=== PATIENT | female | born 1955 | race Caucasian/White ===

== ENCOUNTER 2022-04-07 10:34 | Inpatient (IN) ==
[2022-04-07] MEDS ORDERED: ASPIRIN 81 MG TAB.CHEW CHEWED ONE (10:57)
[2022-04-07 10:58] LABS: POC Calcium, Ionized 1.06 (1.16-1.32); POC Creatinine 0.6 (0.6-1.2); POC Potassium 4.4 (3.3-5.1)
--- NOTE | 2022-04-07 11:08 | Emergency Department Note ---
Chest Pain HPI General Chief Complaint: Chest Pain Stated Complaint: Chest Pain Time Seen by Provider: 04/07/22 10:57 Source: patient Mode of arrival: ambulatory Limitations: no limitations History of Present Illness HPI Narrative: Narrative:Who presents complaining of multiple episodes of palpitations at night she states along with these palpitations she gets a squeezing feeling that may radiate toward the left upper chest. She does not do anything to treat them they last for less than a minute she states she has been wearing a Holter monitor for her physician but she is not sure what it shows. She says no to chest pain but does say yes to a squeezing feeling. She is also has significant medical history and that she has fatty liver disease with ascites and cirrhosis and apparently her physician was trying to diurese her recently and her sodium dropped each called her and told her to limit her fluid intake. Related Data Home Medications Medication Instructions Recorded Confirmed propranolol 40 mg tablet 40 mg PO BID 02/07/17 03/28/22 ascorbic acid (vitamin C) 500 mg 500 mg PO QDAY 11/19/18 03/28/22 tablet ferrous sulfate 325 mg (65 mg 325 mg PO QDAY 11/19/18 03/28/22 iron) tablet vitamin B complex 1 tab PO QDAY 01/15/19 03/28/22 Previous Rx's Medication Instructions Recorded Accu-Chek Compact Test (blood #102 ea 05/24/15 sugar diagnostic, drum) magnesium oxide 400 mg (241.3 mg 400 mg PO BID #180 tabs 05/29/16 magnesium) tablet lancets 33 gauge (OneTouch Delica #100 ea 01/03/18 Lancets) blood [facility] diagnostic ([facility] 01/21/20 Verio test strips) calcipotriene 0.005 % topical cream 1 applic topical BID PRN psoriasis 01/24/21 #120 grams halobetasol propionate 0.05 % 1 applic topical BID PRN psoriasis 01/24/21 topical ointment #50 grams hydrocodone 5 mg-acetaminophen 325 1 tab PO BID PRN migraine headache 10/10/21 mg tablet #14 tabs apremilast 30 mg tablet 30 mg PO BID #180 tabs 11/03/21 pravastatin 20 mg tablet 20 mg PO QHS #90 tabs 12/29/21 albuterol sulfate 90 mcg/actuation 2 puff inhalation Q4H PRN asthma 01/30/22 aerosol inhaler #8.5 grams levothyroxine 50 mcg tablet 50 mcg PO QDAY #90 tabs 01/31/22 metformin 850 mg tablet 850 mg PO QDAY #90 tabs 02/06/22 midodrine 10 mg tablet 10 mg PO TID #90 tabs 03/14/22 furosemide 80 mg tablet 160 mg PO QDAY #90 tabs 03/28/22 spironolactone 100 mg tablet 400 mg PO QDAY #180 tabs 03/28/22 Allergies Allergy/AdvReac Type Severity Reaction Status Date / Time Sulfa (Sulfonamide Allergy Unknown SWELLING Verified 04/07/22 10:39 Antibiotics) [SULFA (SULFONAMIDE ANTIBIOTICS)] NSAIDS (Non-Steroidal AdvReac Unknown STOMACH Verified 04/07/22 10:39 Anti-Inflamma ULCERS [NSAIDS (NON-STEROIDAL ANTI-INFLAMMA] Review of Systems ROS ROS Narrative: Narrative: All systems ED: reviewed and negative except as stated. PFS Narrative Patient History Narrative: Narrative: Medical/Surgical/Family History All Active Problems Heart palpitations (Acute) Chest pain, rule out acute myocardial infarction (Acute) Ascites (Acute) Acute hypotension (Acute) Ascites (Acute) Lesion of lip (Acute) Diarrhea (Acute) Abdominal bloating (Acute) Anemia (Chronic) Asthma (Chronic) Cholelithiasis (Chronic 03/23/13) Cirrhosis of liver (Chronic 03/23/13) Dermatitis (Chronic) Diabetes mellitus, type II (Chronic) Edema (Chronic) Elevated liver enzymes (Chronic) Esophageal varices (Chronic 05/22/13) Gastritis (Chronic 05/22/13) Hyperkalemia (Chronic) Hyperlipidemia (Chronic) Hypertension, essential (Chronic) Hypothyroidism (Chronic) Leukocytopenia (Chronic) Fatty liver disease, nonalcoholic (Chronic) Abnormal liver function test (Chronic) Migraine (Chronic) Obesity, morbid (Chronic) Obstructive sleep apnea (Chronic) Osteoarthritis (Chronic) Overactive bladder (Chronic) Presbyopia (Chronic) Reactive airway disease (Chronic) Rosacea (Chronic) Rotator cuff impingement syndrome (Chronic) Elevated sedimentation rate (Chronic) Splenomegaly (Chronic 02/24/13) Thrombocytopenia (Chronic) Vitamin D deficiency (Chronic) Psoriasis with arthropathy (Chronic) Hyperuricemia (Chronic) Encounter for long-term current use of high risk medication (Chronic) Numbness and tingling sensation of skin (Chronic) Dysphagia (Chronic) Metabolic Syndrome X (Chronic) Low back pain (Chronic) Chest discomfort (Chronic) Skin lesion (Chronic) Migraine (Chronic) Depression (Chronic) Weight loss, intentional (Chronic) Callus of foot (Chronic) Dysuria (Acute) Retinal ischemia (Chronic) Retinal hemorrhage (Chronic) CKD (chronic kidney disease), stage II (Chronic) Medicare annual wellness visit, initial (Acute) Low blood pressure (Acute) Medicare annual wellness visit, subsequent (Acute) Neck pain (Acute) Lumbar radiculopathy, right (Acute) Right hip pain (Acute) Medical History Abnormal liver function test Anemia Mild Asthma No recent exacerbation or need for albuterol. Refill albuterol today. Advised patient to call clinic if she develops upper respiratory symptoms. Cholelithiasis (03/23/13) Asymptomatic Cirrhosis of liver (03/23/13) Dermatitis Diabetes mellitus, type II Dysphagia since last variceal banding Edema Mild Elevated liver enzymes Elevated sedimentation rate Encounter for long-term current use of high risk medication Esophageal varices (05/22/13) banded several times Fatty liver disease, nonalcoholic Fracture of finger, closed 1983: Right Small Finger, 1977 Right Small Finger, 1976 Right Thumb Gastritis (05/22/13) Gum abscess Hyperkalemia Hyperlipidemia Hypertension, essential Hypotension improved after decreased losartan dose Continue losartan as well as spironolactone, propranolol, and Lasix. Low-sodium diet recommended. Hyperuricemia H/O Hypothyroidism Leukocytopenia Secondary to cirrhosis. Medicare annual wellness visit, initial Medicare annual wellness visit, subsequent Metabolic Syndrome X Migraine Nuclear sclerosis Obesity, morbid Obstructive sleep apnea With the weight loss she feels she does not need CPAP Osteoarthritis Overactive bladder Pancytopenia (12/25/11) Pelvic inflammatory disease 1977 Presbyopia Psoriasis with arthropathy Rash similar to previous episodes of psoriasis. Reactive airway disease Right hip pain Rosacea Rotator cuff impingement syndrome Splenomegaly (02/24/13) Thrombocytopenia Secondary to cirrhosis. Vertigo BPPV Vitamin D deficiency Surgical History History of arthroscopy of left knee 2008 History of section 1989, 1985 History of colonoscopy (06/15/21) 08/29/10 - Dr Pineda - TA times two. 10/04/15 - normal-5 year follow up. History of endometrial ablation February 2003 menometrorrhagia History of esophagogastroduodenoscopy (06/15/21) 06/12/2014-Esophageal Varices 05/22/2013-No abnormalities. 05/31/15-Dr Delgado - Grade II esophageal varices. 01/08/17-July [place], Varices, banded 2. 01/07/18-esophageal varices banded x2. Dr. Saunders. 1 year follow-up EGD. 12/08/20 History of laparoscopy 1983 Diagnostic, infertility History of liver biopsy (03/03/13) Chronic hepatitis Family History Unknown Essential hypertension Social History Smoking Status: Never smoker Alcohol Intake Frequency: former alcohol drinker Substance Use: does not use Exam Narrative Narrative: Narrative: General Limitations: no limitations Course Vital Signs Vital signs: Vital Signs Temperature 97.6 F 04/07/22 10:35 Pulse Rate 63 04/07/22 10:35 Respiratory Rate 16 04/07/22 10:35 Blood Pressure 139/60 04/07/22 10:35 Pulse Oximetry (%) 98 04/07/22 10:35 Oxygen Delivery Method 04/07/22 10:35 Temperature 97.6 F 04/07/22 10:35 Pulse Rate 58 L 04/07/22 11:31 Respiratory Rate 12 04/07/22 11:31 Blood Pressure 132/74 04/07/22 11:31 Pulse Oximetry (%) 99 04/07/22 11:31 Oxygen Delivery Method 04/07/22 10:35 MDM MDM Narrative Medical decision making narrative: Narrative: Lab Data Result diagrams: 04/07/22 11:00 Labs: Lab Results 04/07/22 04/07/22 04/07/22 Range/Units 10:52 10:53 11:00 WBC 9.0 (4.5-11.0) K/mcL RBC 4.30 (3.59-5.38) M/mcL Hgb 13.1 (11.2-15.7) g/dL Hct 36.8 (34.1-44.9) % POC Hct 40.0 (36-48) MCV 85.6 (80.0-100.0) fL MCH 30.5 (26.0-34.0) pg MCHC 35.6 (31.0-36.0) g/dL RDW 14.3 (11.5-14.5) % Plt Count 177 (140-440) K/mcL MPV 11.0 (8.8-12.5) fL Immature Gran % (Auto) 0.4 (0.0-0.5) % Neut % (Auto) 88.9 H (38.0-78.0) % Lymph % (Auto) 4.4 L (15.5-49.0) % [place] % (Auto) 5.7 (1.0-12.0) % Eos % (Auto) 0.4 (0.0-7.0) % Baso % (Auto) 0.2 (0.0-2.0) % Lymph # (Auto) 0.40 L (1.50-4.80) K/mcL [place] # (Auto) 0.51 (0.10-0.90) K/mcL Eos # (Auto) 0.04 (0.00-0.70) K/mcL Baso # (Auto) 0.02 (0.00-0.30) K/mcL Immature Gran # 0.04 (0.00-0.05) K/mcl Absolute Neutrophils 7.98 (1.80-8.00) K/mcL D-Dimer POC Sodium 121 L (133-145) POC Potassium 4.4 (3.3-5.1) POC Chloride 84 L (96-108) POC Total CO2 29.0 (22-30) POC BUN 28 H (6-20) POC Creatinine 0.6 (0.6-1.2) POC Glucose 240 H (70-105) POC WB Ioniz Calcium 1.06 L (1.16-1.32) POC Troponin I < 0.02 (0.00-0.08) 04/07/22 Range/Units 11:00 WBC (4.5-11.0) K/mcL RBC (3.59-5.38) M/mcL Hgb (11.2-15.7) g/dL Hct (34.1-44.9) % POC Hct (36-48) MCV (80.0-100.0) fL MCH (26.0-34.0) pg MCHC (31.0-36.0) g/dL RDW (11.5-14.5) % Plt Count (140-440) K/mcL MPV (8.8-12.5) fL Immature Gran % (Auto) (0.0-0.5) % Neut % (Auto) (38.0-78.0) % Lymph % (Auto) (15.5-49.0) % [place] % (Auto) (1.0-12.0) % Eos % (Auto) (0.0-7.0) % Baso % (Auto) (0.0-2.0) % Lymph # (Auto) (1.50-4.80) K/mcL [place] # (Auto) (0.10-0.90) K/mcL Eos # (Auto) (0.00-0.70) K/mcL Baso # (Auto) (0.00-0.30) K/mcL Immature Gran # (0.00-0.05) K/mcl Absolute Neutrophils (1.80-8.00) K/mcL D-Dimer TNP POC Sodium (133-145) POC Potassium (3.3-5.1) POC Chloride (96-108) POC Total CO2 (22-30) POC BUN (6-20) POC Creatinine (0.6-1.2) POC Glucose (70-105) POC WB Ioniz Calcium (1.16-1.32) POC Troponin I (0.00-0.08) Discharge Plan Patient/Caregiver Discharge Instructions Follow up with: Frandy Self DO [Primary Care Provider] - Prescriptions: No Action (DME) blood sugar diagnostic, drum [Accu-Chek Compact Test] strip See Dose Instructions .ROUTE .MEDSUPPLY Qty: 102 3RF Dose Instruction: As directed Rx Instructions: Check blood sugars once daily, Dx: E11.9 magnesium oxide 400 mg tablet 400 mg PO BID Qty: 180 3RF propranolol 40 mg tablet 40 mg PO BID (DME) lancets [OneTouch Delica Lancets] 33 gauge misc See Dose Instructions .ROUTE .MEDSUPPLY Qty: 100 3RF Dose Instruction: As directed Rx Instructions: Test once daily apremilast 30 mg tablet 30 mg PO BID Qty: 180 4RF pravastatin 20 mg tablet 20 mg PO QHS Qty: 90 3RF levothyroxine 50 mcg tablet 50 mcg PO QDAY Qty: 90 3RF metformin 850 mg tablet 850 mg PO QDAY Qty: 90 3RF vitamin B complex tablet 1 tab PO QDAY ferrous sulfate 325 mg (65 mg iron) tablet 325 mg PO QDAY ascorbic acid (vitamin C) 500 mg tablet 500 mg PO QDAY (DME) OneTouch Verio test strips Strip See Dose Instructions .ROUTE .MEDSUPPLY Qty: 100 3RF Dose Instruction: As directed Rx Instructions: Test once daily calcipotriene 0.005 % cream 1 applic topical BID PRN (Reason: psoriasis) Qty: 120 1RF Rx Instructions: rub in gently and completely halobetasol propionate 0.05 % ointment 1 applic topical BID PRN (Reason: psoriasis) Qty: 50 1RF albuterol sulfate 90 mcg/actuation HFA aerosol inhaler 2 puff INHALATION Q4H PRN (Reason: asthma) Qty: 8.5 1RF hydrocodone-acetaminophen 5-325 mg tablet 1 tab PO BID PRN (Reason: migraine headache) Qty: 14 0RF midodrine 10 mg tablet 10 mg PO TID Qty: 90 2RF Rx Instructions: do not give last dose of day after 6PM or within 4 hrs of bedtime spironolactone 100 mg tablet 400 mg PO QDAY Qty: 180 1RF furosemide 80 mg tablet 160 mg PO QDAY Qty: 90 1RF
--- NOTE | 2022-04-07 11:23 | XRay Report ---
INDICATION: Chest Pain TECHNIQUE: AP portable upright chest x-ray COMPARISON: None FINDINGS: Lungs:Lungs are negative. No focal pulmonary parenchymal infiltrate or mass Heart, vascular:No significant cardiomegaly. Pulmonary vascularity is normal. No pulmonary edema or pulmonary congestion Mediastinum, m[place]lin:No mediastinal widening. No hilar mass Pleura:No pleural fluid. No pleural-based mass or calcification Skeletal:Negative. IMPRESSION: Negative AP chest x-ray Interpreted and Authenticated by: Frandy Alves 04/07/22
[2022-04-07 11:43] LABS: Basophils # (Auto) 0.02 K/mcL (0.00-0.30); Basophils % (Auto) 0.2 % (0.0-2.0); Eosinophils # (Auto) 0.04 K/mcL (0.00-0.70); Eosinophils % (Auto) 0.4 % (0.0-7.0); Hematocrit 36.8 % (34.1-44.9); Hemoglobin 13.1 g/dL (11.2-15.7); Lymphocytes % (Auto) 4.4 % (15.5-49.0); Mean Cell Volume 85.6 fL (80.0-100.0); Mean Corpuscular HGB Conc 35.6 g/dL (31.0-36.0); Monocytes # (Auto) 0.51 K/mcL (0.10-0.90); Monocytes % (Auto) 5.7 % (1.0-12.0); Neutrophils % (Auto) 88.9 % (38.0-78.0); Platelet Count 177 K/mcL (140-440); Red Cell Distribution Width 14.3 % (11.5-14.5)
[2022-04-07 12:22] LABS: ALT/SGPT 23 U/L (<40); AST/SGOT 46 U/L (<32); Albumin 3.4 gm/dL (3.2-5.2); Alkaline Phosphatase 63 U/L (39-117); Bilirubin,Direct 0.3 mg/dL (<0.3); Bilirubin,Total 1.6 mg/dL (0.1-1.0); Globulin 3.4 gm/dL (2.2-3.7)
--- NOTE | 2022-04-07 13:01 | Emergency Department Note ---
HPI General Chief complaint: Chest Pain Stated complaint: Chest Pain Time Seen by Provider: 04/07/22 10:57 Source: patient Mode of arrival: ambulatory Limitations: no limitations History of Present Illness HPI Narrative: Maryam Cruz is a 66-year-old female who presents to the emergency department complaining of a variety of issues, including fluttering in her chest for the past 2 weeks as well as accompanying warmth and pressure for 2 days, along with anxiety and an inability to sleep. The patient was seen here in January and a large volume paracentesis was performed, followed by admission due to resulting lability of her blood pressure. Following discharge, the patient was seen by her primary care provider and a Holter monitor was ordered; she states it was believed that holding her propranolol resulted in a dysrhythmia. She reports that while she was hospitalized she had intermittent atrial fibrillation, but says she did not require cardioversion. Patient has history of liver cirrhosis that was compensated for approximately 10 years, and this was the case until about 2 months ago. The patient has been undergoing paracentesis every couple of weeks with volumes up to 5 L. Diuretics have been under adjustment, increasing to 160 mg/day of Lasix and 400 mg/day of spironolactone; the patient was informed 3 days ago that her sodium was low. She states she has been placed on fluid restriction of 1500 mils per day as well as her diuretics being cut in half to Lasix 80 mg/day and spironolactone 200 mg/day. In addition to the above symptoms, the patient reports she has had vomiting this morning along with her inability to sleep, and rigors. She denies chest pain, shortness of breath, diz ziness, muscle spasms in the extremities, and all other acute complaints at this time. Related Data Home Medications Medication Instructions Recorded Confirmed propranolol 40 mg tablet 40 mg PO BID 02/07/17 04/07/22 ascorbic acid (vitamin C) 500 mg 500 mg PO QDAY 11/19/18 04/07/22 tablet ferrous sulfate 325 mg (65 mg 325 mg PO QDAY 11/19/18 04/07/22 iron) tablet vitamin B complex 1 tab PO QDAY 01/15/19 04/07/22 Previous Rx's Medication Instructions Recorded Accu-Chek Compact Test (blood #102 ea 05/24/15 sugar diagnostic, drum) magnesium oxide 400 mg (241.3 mg 400 mg PO BID #180 tabs 05/29/16 magnesium) tablet lancets 33 gauge (OneTouch Delica #100 ea 01/03/18 Lancets) blood sugar diagnostic (OneTouch #100 ea 01/21/20 Verio test strips) calcipotriene 0.005 % topical cream 1 applic topical BID PRN psoriasis 01/24/21 #120 grams halobetasol propionate 0.05 % 1 applic topical BID PRN psoriasis 01/24/21 topical ointment #50 grams hydrocodone 5 mg-acetaminophen 325 1 tab PO BID PRN migraine headache 10/10/21 mg tablet #14 tabs apremilast 30 mg tablet 30 mg PO BID #180 tabs 11/03/21 pravastatin 20 mg tablet 20 mg PO QHS #90 tabs 12/29/21 albuterol sulfate 90 mcg/actuation 2 puff inhalation Q4H PRN asthma 01/30/22 aerosol inhaler #8.5 grams levothyroxine 50 mcg tablet 50 mcg PO QDAY #90 tabs 01/31/22 metformin 850 mg tablet 850 mg PO QDAY #90 tabs 02/06/22 midodrine 10 mg tablet 10 mg PO TID #90 tabs 03/14/22 furosemide 80 mg tablet 160 mg PO QDAY #90 tabs 03/28/22 spironolactone 100 mg tablet 400 mg PO QDAY #180 tabs 03/28/22 Allergies Allergy/AdvReac Type Severity Reaction Status Date / Time Sulfa (Sulfonamide Allergy Unknown SWELLING Verified 04/07/22 10:39 Antibiotics) [SULFA (SULFONAMIDE ANTIBIOTICS)] NSAIDS (Non-Steroidal AdvReac Unknown STOMACH Verified 04/07/22 10:39 Anti-Inflamma ULCERS [NSAIDS (NON-STEROIDAL ANTI-INFLAMMA] Review of Systems ROS ROS Narrative: A comprehensive review of systems is obtained and found to be negative, except as per HPI. [facility] Narrative Patient History Narrative: Narrative: Medical/Surgical/Family History All Active Problems (Updated 04/07/22 @ 19:53 by Tessie Talley PA-C) Acute hyponatremia (Acute) Hyponatremia (Acute) Cirrhosis of liver with ascites (Acute) Heart palpitations (Acute) Chest pain, rule out acute myocardial infarction (Acute) Ascites (Acute) Acute hypotension (Acute) Ascites (Acute) Lesion of lip (Acute) Diarrhea (Acute) Abdominal bloating (Acute) Anemia (Chronic) Asthma (Chronic) Cholelithiasis (Chronic 03/23/13) Cirrhosis of liver (Chronic 03/23/13) Dermatitis (Chronic) Diabetes mellitus, type II (Chronic) Edema (Chronic) Elevated liver enzymes (Chronic) Esophageal varices (Chronic 05/22/13) Gastritis (Chronic 05/22/13) Hyperkalemia (Chronic) Hyperlipidemia (Chronic) Hypertension, essential (Chronic) Hypothyroidism (Chronic) Leukocytopenia (Chronic) Fatty liver disease, nonalcoholic (Chronic) Abnormal liver function test (Chronic) Migraine (Chronic) Obesity, morbid (Chronic) Obstructive sleep apnea (Chronic) Osteoarthritis (Chronic) Overactive bladder (Chronic) Presbyopia (Chronic) Reactive airway disease (Chronic) Rosacea (Chronic) Rotator cuff impingement syndrome (Chronic) Elevated sedimentation rate (Chronic) Splenomegaly (Chronic 02/24/13) Thrombocytopenia (Chronic) Vitamin D deficiency (Chronic) Psoriasis with arthropathy (Chronic) Hyperuricemia (Chronic) Encounter for long-term current use of high risk medication (Chronic) Numbness and tingling sensation of skin (Chronic) Dysphagia (Chronic) Metabolic Syndrome X (Chronic) Low back pain (Chronic) Chest discomfort (Chronic) Skin lesion (Chronic) Migraine (Chronic) Depression (Chronic) Weight loss, intentional (Chronic) Callus of foot (Chronic) Dysuria (Acute) Retinal ischemia (Chronic) Retinal hemorrhage (Chronic) CKD (chronic kidney disease), stage II (Chronic) Medicare annual wellness visit, initial (Acute) Low blood pressure (Acute) Medicare annual wellness visit, subsequent (Acute) Neck pain (Acute) Lumbar radiculopathy, right (Acute) Right hip pain (Acute) Medical History Abnormal liver function test Anemia Mild Asthma No recent exacerbation or need for albuterol. Refill albuterol today. Advised patient to call clinic if she develops upper respiratory symptoms. Cholelithiasis (03/23/13) Asymptomatic Cirrhosis of liver (03/23/13) Dermatitis Diabetes mellitus, type II Dysphagia since last variceal banding Edema Mild Elevated liver enzymes Elevated sedimentation rate Encounter for long-term current use of high risk medication Esophageal varices (05/22/13) banded several times Fatty liver disease, nonalcoholic Fracture of finger, closed 1984: Right Small Finger, 1977 Right Small Finger, 1976 Right Thumb Gastritis (05/22/13) Gum abscess Hyperkalemia Hyperlipidemia Hypertension, essential Hypotension improved after decreased losartan dose Continue losartan as well as spironolactone, propranolol, and Lasix. Low-sodium diet recommended. Hyperuricemia H/O Hypothyroidism Leukocytopenia Secondary to cirrhosis. Medicare annual wellness visit, initial Medicare annual wellness visit, subsequent Metabolic Syndrome X Migraine Nuclear sclerosis Obesity, morbid Obstructive sleep apnea With the weight loss she feels she does not need CPAP Osteoarthritis Overactive bladder Pancytopenia (12/25/11) Pelvic inflammatory disease 1977 Presbyopia Psoriasis with arthropathy Rash similar to previous episodes of psoriasis. Reactive airway disease Right hip pain Rosacea Rotator cuff impingement syndrome Splenomegaly (02/24/13) Thrombocytopenia Secondary to cirrhosis. Vertigo BPPV Vitamin D deficiency Surgical History History of arthroscopy of left knee 2008 History of section 1985 History of colonoscopy (06/15/21) 08/29/10 - Dr Pineda - TA times two. 10/04/15 - normal-5 year follow up. History of endometrial ablation February 2003 menometrorrhagia History of esophagogastroduodenoscopy (06/15/21) 06/12/2014-Esophageal Varices 05/22/2013-No abnormalities. 05/31/15-Dr Delgado - Grade II esophageal varices. 01/08/17-July [place], Varices, banded 2. 01/07/18-esophageal varices banded x2. Dr. Saunders. 1 year follow-up EGD. 12/08/20 History of laparoscopy 1983 Diagnostic, infertility History of liver biopsy (03/03/13) Chronic hepatitis Family History Unknown Essential hypertension Social History Smoking Status: Never smoker Alcohol Intake Frequency: former alcohol drinker Substance Use: does not use Exam Narrative Narrative: General: Alert, pleasant, conversant, NAD HEENT: Mask in place per COVID protocol, EOMI, PERRL, normal ROM at neck, anicteric sclerae Chest/respirations: Symmetric chest wall expansion, CTAB, adequate tidal volume and respiratory effort, speaks in complete paragraphs without difficulty CV: RRR/no MRG, cap refill less than 2 seconds Abdomen/GI: NABs, soft, NT/ND; no right upper quadrant tenderness Extremities/MSK: MAEW, normal gait Skin: Normal warm and dry; no cyanosis or jaundice General Limitations: no limitations Course Vital Signs Vital signs: Vital Signs Temperature 97.6 F 04/07/22 10:35 Pulse Rate 63 04/07/22 10:35 Respiratory Rate 16 04/07/22 10:35 Blood Pressure 139/60 04/07/22 10:35 Pulse Oximetry (%) 98 04/07/22 10:35 Oxygen Delivery Method 04/07/22 10:35 Temperature 98.2 F 04/07/22 19:11 Pulse Rate 64 04/07/22 19:11 Respiratory Rate 16 04/07/22 19:11 Blood Pressure 94/74 04/07/22 19:11 Pulse Oximetry (%) 98 04/07/22 19:11 Oxygen Delivery Method 04/07/22 19:11 [facility] Narrative Medical decision making narrative: Patient was informed 3 days prior to ED presentation that her sodium was low. Evaluated in the emergency department it is 121 today. This is not consistent with a level that the patient may be discharged home safely. In addition, the patient's proBNP is elevated, though chest x-ray is not consistent with fluid overload. The patient is in sinus rhythm in the emergency department, though occasional PACs are noted. No ST elevation or depression. Troponin is negative. The patient's abdomen is not distended as it has been on previous encounters requiring paracentesis. The patient last had a paracentesis 1 week ago and is scheduled for her next in a week. The patient's work-up is discussed with her in detail. Given her benign abdomen and lack of signs and symptoms consistent with ascites and fluid overload, we discussed risks and benefits of paracentesis today. Using a shared decision- making process, she agrees that admission is in her best interest and consents to contacting the hospitalist to discuss admission to the hospital, along with foregoing paracentesis until her scheduled appointment next week. The hospitalist service is contacted (Dr Cutler) to request admission for this patient given her hyponatremia. After discussing the patient's case in detail, Dr. Cutler agrees to place the patient in PCU. Differential Diagnosis Differential Diagnosis: electrolyte derangement, dysrhythmia, fluid overload, ascites Lab Data Lab results reviewed: Yes I reviewed the patient's lab results. Result diagrams: 04/07/22 11:00 04/07/22 16:05 Labs: Lab Results 04/07/22 04/07/22 04/07/22 Range/Units 10:52 10:53 11:00 WBC 9.0 (4.5-11.0) K/mcL RBC 4.30 (3.59-5.38) M/mcL Hgb 13.1 (11.2-15.7) g/dL Hct 36.8 (34.1-44.9) % POC Hct 40.0 (36-48) MCV 85.6 (80.0-100.0) fL MCH 30.5 (26.0-34.0) pg MCHC 35.6 (31.0-36.0) g/dL RDW 14.3 (11.5-14.5) % Plt Count 177 (140-440) K/mcL MPV 11.0 (8.8-12.5) fL Immature Gran % (Auto) 0.4 (0.0-0.5) % Neut % (Auto) 88.9 H (38.0-78.0) % Lymph % (Auto) 4.4 L (15.5-49.0) % [place] % (Auto) 5.7 (1.0-12.0) % Eos % (Auto) 0.4 (0.0-7.0) % Baso % (Auto) 0.2 (0.0-2.0) % Lymph # (Auto) 0.40 L (1.50-4.80) K/mcL [place] # (Auto) 0.51 (0.10-0.90) K/mcL Eos # (Auto) 0.04 (0.00-0.70) K/mcL Baso # (Auto) 0.02 (0.00-0.30) K/mcL Immature Gran # 0.04 (0.00-0.05) K/mcl Absolute Neutrophils 7.98 (1.80-8.00) K/mcL D-Dimer POC Sodium 121 L (133-145) POC Potassium 4.4 (3.3-5.1) POC Chloride 84 L (96-108) POC Total CO2 29.0 (22-30) POC BUN 28 H (6-20) POC Creatinine 0.6 (0.6-1.2) POC Glucose 240 H (70-105) POC WB Ioniz Calcium 1.06 L (1.16-1.32) Total Bilirubin (0.1-1.0) mg/dL Direct Bilirubin (<0.3) mg/dL AST (<32) U/L ALT (<40) U/L Alkaline Phosphatase (39-117) U/L NT-Pro-B Natriuret Pep (<125.0) pg/mL Total Protein (5.9-8.4) gm/dL Albumin (3.2-5.2) gm/dL Globulin (2.2-3.7) gm/dL POC Troponin I < 0.02 (0.00-0.08) 04/07/22 04/07/22 04/07/22 Range/Units 11:00 11:00 12:27 WBC (4.5-11.0) K/mcL RBC (3.59-5.38) M/mcL Hgb (11.2-15.7) g/dL Hct (34.1-44.9) % POC Hct (36-48) MCV (80.0-100.0) fL MCH (26.0-34.0) pg MCHC (31.0-36.0) g/dL RDW (11.5-14.5) % Plt Count (140-440) K/mcL MPV (8.8-12.5) fL Immature Gran % (Auto) (0.0-0.5) % Neut % (Auto) (38.0-78.0) % Lymph % (Auto) (15.5-49.0) % [place] % (Auto) (1.0-12.0) % Eos % (Auto) (0.0-7.0) % Baso % (Auto) (0.0-2.0) % Lymph # (Auto) (1.50-4.80) K/mcL [place] # (Auto) (0.10-0.90) K/mcL Eos # (Auto) (0.00-0.70) K/mcL Baso # (Auto) (0.00-0.30) K/mcL Immature Gran # (0.00-0.05) K/mcl Absolute Neutrophils (1.80-8.00) K/mcL D-Dimer TNP 1.54 H POC Sodium (133-145) POC Potassium (3.3-5.1) POC Chloride (96-108) POC Total CO2 (22-30) POC BUN (6-20) POC Creatinine (0.6-1.2) POC Glucose (70-105) POC WB Ioniz Calcium (1.16-1.32) Total Bilirubin 1.6 H (0.1-1.0) mg/dL Direct Bilirubin 0.3 H (<0.3) mg/dL AST 46 H (<32) U/L ALT 23 (<40) U/L Alkaline Phosphatase 63 (39-117) U/L NT-Pro-B Natriuret Pep 1240.0 H (<125.0) pg/mL Total Protein 6.8 (5.9-8.4) gm/dL Albumin 3.4 (3.2-5.2) gm/dL Globulin 3.4 (2.2-3.7) gm/dL POC Troponin I (0.00-0.08) EKG Data EKG #1: EKG attestation: Yes I reviewed and interpreted this EKG. EKG shows normal: sinus rhythm ST segment elevation in: None ST segment depression in: None Pulse Oximetry Data Pulse Ox %: 98 Interpretation: On room air Discharge Plan Patient/Caregiver Discharge Instructions Pt seen by MACHINE HEEL BUILDER/PA only: Yes Clinical Impression: Acute hyponatremia, Abnormal liver function test Patient Disposition: Still a Patient Discharge Date/Time: 04/07/22 14:57
--- NOTE | 2022-04-07 14:39 | Internal Med History&Physical ---
HPI History of Present Illness Patient information: Note initiated : 04/07/22 at 2:29 pm Service Date, if different from initiated Date: [] Patient: Maryam Cruz a 66 y/o F admitted on for Chest Pain. Chief Complaint: [palpitation, chest pressure] Chief complaint: palpitation, chest pressure History of present illness: Ms. Cruz is a 66 year old F history of cirrhosis with ascites, type 2 diabetes mellitus, dyslipidemia, hypothyroidism, psoriasis, presenting with 2-day history of palpitations, chest pressure, and warm of the chest wall. In addition, she was told 2 days ago that her serum potassium level was low at 123, with a baseline of 132. As result, she was told to cut her diuretics Lasix into half from the 1 60-80 Mg daily. A repeat serum sodium level was 121 today in the ED. Cardiac rhythm was on and off in atrial fibrillation's from telemetry blood and twelve-lead EKG done in the ED showing normal sinus rhythm. First troponin not elevated at <0.02. Patient currently denies any palpitation or chest pressure. She is only complaining of mild general body weakness. Admission request was called for symptomatic hyponatremia. Constitutional Constitutional: Absent chills, excessive sweating, fatigue, fever(s) or weakness EENT Eyes: Absent blurry vision, change in vision, loss of vision or other visual disturbances Ears: Absent decreased hearing or tinnitus Nose, mouth and throat: Absent abnormal hearing, dry mouth, headache(s), nasal congestion or sore throat Cardiovascular Cardiovascular: Absent chest pain, chest pain at rest, edema, irregular heart rhythm or palpatations Additional comments: palpitation Chest wall pressure Warmth of chest wall Respiratory Respiratory: Absent cough, dyspnea or wheezing Gastrointestinal Gastrointestinal: Absent abdominal pain, constipation, diarrhea, nausea or vomiting Musculoskeletal Musculoskeletal: Absent back pain, deformity, limited range of motion, muscle cramps, muscle weakness or numbness Integumentary Integumentary: Absent lesions, rash or wounds Neurological Neurological: Absent focal weakness, headache(s) or numbness Psychiatric Psychiatric: Absent anxiety, depression or hallucinations PFSH PFSH All Active Problems (Updated 04/07/22 @ 14:34 by Leon Cutler MD) Hyponatremia (Acute) Cirrhosis of liver with ascites (Acute) Heart palpitations (Acute) Chest pain, rule out acute myocardial infarction (Acute) Ascites (Acute) Acute hypotension (Acute) Ascites (Acute) Lesion of lip (Acute) Diarrhea (Acute) Abdominal bloating (Acute) Anemia (Chronic) Asthma (Chronic) Cholelithiasis (Chronic 03/23/13) Cirrhosis of liver (Chronic 03/23/13) Dermatitis (Chronic) Diabetes mellitus, type II (Chronic) Edema (Chronic) Elevated liver enzymes (Chronic) Esophageal varices (Chronic 05/22/13) Gastritis (Chronic 05/22/13) Hyperkalemia (Chronic) Hyperlipidemia (Chronic) Hypertension, essential (Chronic) Hypothyroidism (Chronic) Leukocytopenia (Chronic) Fatty liver disease, nonalcoholic (Chronic) Abnormal liver function test (Chronic) Migraine (Chronic) Obesity, morbid (Chronic) Obstructive sleep apnea (Chronic) Osteoarthritis (Chronic) Overactive bladder (Chronic) Presbyopia (Chronic) Reactive airway disease (Chronic) Rosacea (Chronic) Rotator cuff impingement syndrome (Chronic) Elevated sedimentation rate (Chronic) Splenomegaly (Chronic 02/24/13) Thrombocytopenia (Chronic) Vitamin D deficiency (Chronic) Psoriasis with arthropathy (Chronic) Hyperuricemia (Chronic) Encounter for long-term current use of high risk medication (Chronic) Numbness and tingling sensation of skin (Chronic) Dysphagia (Chronic) Metabolic Syndrome X (Chronic) Low back pain (Chronic) Chest discomfort (Chronic) Skin lesion (Chronic) Migraine (Chronic) Depression (Chronic) Weight loss, intentional (Chronic) Callus of foot (Chronic) Dysuria (Acute) Retinal ischemia (Chronic) Retinal hemorrhage (Chronic) CKD (chronic kidney disease), stage II (Chronic) Medicare annual wellness visit, initial (Acute) Low blood pressure (Acute) Medicare annual wellness visit, subsequent (Acute) Neck pain (Acute) Lumbar radiculopathy, right (Acute) Right hip pain (Acute) Medical History Abnormal liver function test Anemia Mild Asthma No recent exacerbation or need for albuterol. Refill albuterol today. Advised patient to call clinic if she develops upper respiratory symptoms. Cholelithiasis (03/23/13) Asymptomatic Cirrhosis of liver (03/23/13) Dermatitis Diabetes mellitus, type II Dysphagia since last variceal banding Edema Mild Elevated liver enzymes Elevated sedimentation rate Encounter for long-term current use of high risk medication Esophageal varices (05/22/13) banded several times Fatty liver disease, nonalcoholic Fracture of finger, closed 1984: Right Small Finger, 1977 Right Small Finger, 1976 Right Thumb Gastritis (05/22/13) Gum abscess Hyperkalemia Hyperlipidemia Hypertension, essential Hypotension improved after decreased losartan dose Continue losartan as well as spironolactone, propranolol, and Lasix. Low-sodium diet recommended. Hyperuricemia H/O Hypothyroidism Leukocytopenia Secondary to cirrhosis. Medicare annual wellness visit, initial Medicare annual wellness visit, subsequent Metabolic Syndrome X Migraine Nuclear sclerosis Obesity, morbid Obstructive sleep apnea With the weight loss she feels she does not need CPAP Osteoarthritis Overactive bladder Pancytopenia (12/25/11) Pelvic inflammatory disease 1977 Presbyopia Psoriasis with arthropathy Rash similar to previous episodes of psoriasis. Reactive airway disease Right hip pain Rosacea Rotator cuff impingement syndrome Splenomegaly (02/24/13) Thrombocytopenia Secondary to cirrhosis. Vertigo BPPV Vitamin D deficiency Surgical History History of arthroscopy of left knee 2008 History of section 1985 History of colonoscopy (06/15/21) 08/29/10 - Dr Pineda - TA times two. 10/04/15 - normal-5 year follow up. History of endometrial ablation February 2003 menometrorrhagia History of esophagogastroduodenoscopy (06/15/21) 06/12/2014-Esophageal Varices 05/22/2013-No abnormalities. 05/31/15-Dr Delgado - Grade II esophageal varices. 01/08/17-July [place]o, Varices, banded 2. 01/07/18-esophageal varices banded x2. Dr. Saunders. 1 year follow-up EGD. 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 smoking status: Never smoker alcohol intake frequency: former alcohol drinker substance use type: does not use MEDS/ALLERGIES Home Medications and Allergies Home Medications Medication Instructions Recorded Confirmed Type Accu-Chek Compact Test (blood #102 ea 05/24/15 03/28/22 Rx sugar diagnostic, drum) magnesium oxide 400 mg (241.3 mg 400 mg PO BID #180 tabs 05/29/16 03/28/22 Rx magnesium) tablet propranolol 40 mg tablet 40 mg PO BID 02/07/17 03/28/22 History lancets 33 gauge (OneTouch Delica #100 ea 01/03/18 03/28/22 Rx Lancets) ascorbic acid (vitamin C) 500 mg 500 mg PO QDAY 11/19/18 03/28/22 History tablet ferrous sulfate 325 mg (65 mg 325 mg PO QDAY 11/19/18 03/28/22 History iron) tablet vitamin B complex 1 tab PO QDAY 01/15/19 03/28/22 History blood sugar diagnostic (OneTouch #100 ea 01/21/20 03/28/22 Rx Verio test strips) calcipotriene 0.005 % topical cream 1 applic topical BID PRN psoriasis 01/24/21 03/28/22 Rx #120 grams halobetasol propionate 0.05 % 1 applic topical BID PRN psoriasis 01/24/21 03/28/22 Rx topical ointment #50 grams hydrocodone 5 mg-acetaminophen 325 1 tab PO BID PRN migraine headache 10/10/21 03/28/22 Rx mg tablet #14 tabs apremilast 30 mg tablet 30 mg PO BID #180 tabs 11/03/21 03/28/22 Rx pravastatin 20 mg tablet 20 mg PO QHS #90 tabs 12/29/21 03/28/22 Rx albuterol sulfate 90 mcg/actuation 2 puff inhalation Q4H PRN asthma 01/30/22 03/28/22 Rx aerosol inhaler #8.5 grams levothyroxine 50 mcg tablet 50 mcg PO QDAY #90 tabs 01/31/22 03/28/22 Rx metformin 850 mg tablet 850 mg PO QDAY #90 tabs 02/06/22 03/28/22 Rx midodrine 10 mg tablet 10 mg PO TID #90 tabs 03/14/22 03/28/22 Rx furosemide 80 mg tablet 160 mg PO QDAY #90 tabs 03/28/22 03/28/22 Rx spironolactone 100 mg tablet 400 mg PO QDAY #180 tabs 03/28/22 03/28/22 Rx Allergies Allergy/AdvReac Type Severity Reaction Status Date / Time Sulfa (Sulfonamide Allergy Unknown SWELLING Verified 04/07/22 10:39 Antibiotics) [SULFA (SULFONAMIDE ANTIBIOTICS)] NSAIDS (Non-Steroidal AdvReac Unknown STOMACH Verified 04/07/22 10:39 Anti-Inflamma ULCERS [NSAIDS (NON-STEROIDAL ANTI-INFLAMMA] EXAM Constitutional Vitals: Temp Pulse Resp BP Pulse Ox O2 Del Method 36.4 C 62 18 119/84 99 04/07/22 10:35 04/07/22 14:15 04/07/22 14:15 04/07/22 14:15 04/07/22 14:15 04/07/22 10:35 DATA Data Completed and Pending Labs: Labs from last 24 hours 04/07/22 04/07/22 04/07/22 12:27 11:00 11:00 WBC RBC Hgb Hct POC Hct MCV MCH MCHC RDW Plt Count MPV Immature Gran % (Auto) Neut % (Auto) Lymph % (Auto) [place] % (Auto) Eos % (Auto) Baso % (Auto) Lymph # (Auto) [place] # (Auto) Eos # (Auto) Baso # (Auto) Immature Gran # Absolute Neutrophils D-Dimer 1.54 H TNP POC Sodium POC Potassium POC Chloride POC Total CO2 POC BUN POC Creatinine POC Glucose POC WB Ioniz Calcium Total Bilirubin 1.6 H Direct Bilirubin 0.3 H AST 46 H ALT 23 Alkaline Phosphatase 63 NT-Pro-B Natriuret Pep 1240.0 H Total Protein 6.8 Albumin 3.4 Globulin 3.4 POC Troponin I 04/07/22 04/07/22 04/07/22 11:00 10:53 10:52 WBC 9.0 RBC 4.30 Hgb 13.1 Hct 36.8 POC Hct 40.0 MCV 85.6 MCH 30.5 MCHC 35.6 RDW 14.3 Plt Count 177 MPV 11.0 Immature Gran % (Auto) 0.4 Neut % (Auto) 88.9 H Lymph % (Auto) 4.4 L [place] % (Auto) 5.7 Eos % (Auto) 0.4 Baso % (Auto) 0.2 Lymph # (Auto) 0.40 L [place] # (Auto) 0.51 Eos # (Auto) 0.04 Baso # (Auto) 0.02 Immature Gran # 0.04 Absolute Neutrophils 7.98 D-Dimer POC Sodium 121 L POC Potassium 4.4 POC Chloride 84 L POC Total CO2 29.0 POC BUN 28 H POC Creatinine 0.6 POC Glucose 240 H POC WB Ioniz Calcium 1.06 L Total Bilirubin Direct Bilirubin AST ALT Alkaline Phosphatase NT-Pro-B Natriuret Pep Total Protein Albumin Globulin POC Troponin I < 0.02 A/P Assessment and plan (1) Diabetes mellitus, type II: Status: Chronic Qualifiers: Diabetes mellitus complication status: with neurologic complications Diabetes mellitus complication detail: with unspecified neuropathy Diabetes mellitus alf insulin use: without intermediate project manager use Qualified Code(s): E11.40 - Type 2 diabetes mellitus with diabetic neuropathy, unspecified (2) Hyperlipidemia: Status: Chronic Qualifiers: Hyperlipidemia type: mixed hyperlipidemia Qualified Code(s): E78.2 - Mixed hyperlipidemia (3) Hypothyroidism: Status: Chronic Qualifiers: Hypothyroidism type: acquired Qualified Code(s): E03.9 - Hypothyroidism, unspecified (4) Psoriasis with arthropathy: Status: Chronic (5) Cirrhosis of liver with ascites: Status: Acute (6) Hyponatremia: Status: Acute Narrative A/P Narrative: Assessment and Plans: 1. Hyponatremia: Inpatient PCU telemetry Hold diuretics (Lasix, Aldactone) NS@75cc/hr BMP q6hr to trend serum sodium level Physical therapy evaluation and treamtent 2. Cirrhosis with ascites: Hold diuretics (Lasix, Aldactone) Midodrine Propranolol Outpatient GI follow up 3. Hyperlipidemia: Continue statin therapy 4. Hypothyroidism: Continue thyroid replacement therapy 5. T2DM: HgA1c Hold Metformin Insulin Lispro SSI AC HS Accu Check AC HS Hypoglycemia protocol Diabetic diet 6. Psoriasis: Apremilast Calcipotriene topical Halobetasol propionate topical GI ppx: not currently indicated DVT ppx: Lovenox Code status: Full Prognosis: guarded Disposition: inpatient PCU; PT Time Spent With Patient Time: Total time spent is greater than 50% in coordination of care (as documented) at patient's floor/unit and/or counseling patient: Total time spent with greater than 50% in coordination of care (as documented) at patient's floor/unit and/or counseling patient:: 50 - 70 minutes
[2022-04-07] MEDS ORDERED: SENNOSIDES 1 TABLET PO PRN (15:00)
[2022-04-07] MEDS ORDERED: IPRATROPIUM/ALBUTEROL 3 ML AMPUL.NEB NEB PRN (15:00)
[2022-04-07] MEDS ORDERED: LACTULOSE 20 GM/30 ML ORAL.SOL PO PRN (15:00)
[2022-04-07] MEDS ORDERED: DEXTROSE 31 GM ORAL.SUSP PO PRN (15:00)
[2022-04-07] MEDS ORDERED: DEXTROSE 50% 50 ML VIAL IV PRN (15:00)
[2022-04-07] MEDS ORDERED: CALCIPOTRIENE 0.005% TOPICAL PRN (15:16)
[2022-04-07] MEDS ORDERED: traZODone HCL 50 MG TABLET PO PRN (15:16)
[2022-04-07] MEDS ORDERED: ALBUTEROL SULFATE 60 PUFF INHALER INH PRN (15:16)
[2022-04-07] MEDS ORDERED: HALOBETASOL PROPIONATE 0.05% TOPICAL PRN (15:16)
[2022-04-07] MEDS ORDERED: HYDROcodone/APAP 5/325MG TABLET PO PRN (15:16)
[2022-04-07] MEDS: 0.9 % SODIUM CHLORIDE 1,000 ML IV SCH (15:41)
[2022-04-07] MEDS: INSULIN LISPRO 1 UNIT/0.01 ML UNIT SQ SCH ×2 (17:09→21:20)
[2022-04-07] MEDS: MIDODRINE 5 MG TABLET PO SCH (17:09)
[2022-04-07 18:08] LABS: Blood Urea Nitrogen 17 mg/dL (8-23); Calcium 6.1 mg/dL (8.6-10.4); Carbon Dioxide 19 mmol/L (22-30); Chloride 100 mmol/L (96-108); Glomerular Filtration Rate 102; Glucose 110 mg/dL (70-105)
[2022-04-07] MEDS ORDERED: POTASSIUM CHLORIDE 20 MEQ in DEXTROSE 5% IN WATER 250 ML IV ONE ×2 (18:11→21:11)
[2022-04-07] MEDS ORDERED: POTASSIUM CHLORIDE 20 MEQ/10 ML VIAL IV ONE ×2 (18:46)
[2022-04-07] MEDS ORDERED: MAGNESIUM SULFATE 2 GM/50 ML BAG IV ONE (19:02)
[2022-04-07] MEDS ORDERED: PRAVASTATIN 20 MG TABLET PO SCH (21:00)
[2022-04-07] MEDS: DOCUSATE SODIUM 100 MG CAPSULE PO SCH (21:17)
[2022-04-07] MEDS: PROPRANOLOL 40 MG TABLET PO SCH (21:17)
[2022-04-07] MEDS: MAGNESIUM OXIDE 400 MG TABLET PO SCH (21:17)
[2022-04-07] MEDS: SIMVASTATIN 10 MG TABLET PO SCH (21:17)
[2022-04-07] MEDS: 0.9 % SODIUM CHLORIDE 10 ML SYRINGE IV SCH (21:49)
[2022-04-08 01:46] LABS: Blood Urea Nitrogen 22 mg/dL (8-23); Calcium 8.9 mg/dL (8.6-10.4); Carbon Dioxide 25 mmol/L (22-30); Chloride 85 mmol/L (96-108); Glomerular Filtration Rate 78; Glucose 149 mg/dL (70-105)
[2022-04-08] MEDS: 0.9 % SODIUM CHLORIDE 1,000 ML IV SCH ×3 (05:03→16:42)
[2022-04-08] MEDS: 0.9 % SODIUM CHLORIDE 10 ML SYRINGE IV SCH ×3 (05:33→21:29)
[2022-04-08] MEDS: LEVOTHYROXINE 50 MCG TABLET PO SCH (07:09)
[2022-04-08] MEDS: MIDODRINE 5 MG TABLET PO SCH ×3 (07:09→16:46)
[2022-04-08 07:22] LABS: Blood Urea Nitrogen 24 mg/dL (8-23); Calcium 8.9 mg/dL (8.6-10.4); Carbon Dioxide 20 mmol/L (22-30); Chloride 89 mmol/L (96-108); Glomerular Filtration Rate 91; Glucose 140 mg/dL (70-105)
[2022-04-08] MEDS: INSULIN LISPRO 1 UNIT/0.01 ML UNIT SQ SCH ×4 (07:25→21:25)
--- NOTE | 2022-04-08 08:00 | Internal Med Progress Note ---
SUBJECTIVE Subjective Patient information: Note initiated : 04/08/22 at 7:56 am Service Date, if different from initiated Date: [] Patient: Maryam Cruz 66 y/o F admitted on 04/07/22 for Chest Pain. Chief Complaint: [] Interval history: Ms. Cruz is a 66 year old F history of cirrhosis with ascites, type 2 diabetes mellitus, dyslipidemia, hypothyroidism, psoriasis, presenting with 2-day history of palpitations, chest pressure, and warm of the chest wall. In addition, she was told 2 days ago that her serum potassium level was low at 123, with a baseline of 132. As result, she was told to cut her diuretics Lasix into half from the 1 60-80 Mg daily. A repeat serum sodium level was 121 today in the ED. Cardiac rhythm was on and off in atrial fibrillation's from telemetry blood and twelve-lead EKG done in the ED showing normal sinus rhythm. First troponin not elevated at <0.02. Patient currently denies any palpitation or chest pressure. She is only complaining of mild general body weakness. Admission request was called for symptomatic hyponatremia. 04/08: Serum troponin <0.02, <0.01, <0.01. Serum sodium level 121-->129-->118-->118. Her serum potassium at magnesium was also low overnight, and we will replaced with potassium rider and magnesium rider, respectively. Dose of lidocaine with D5W, and this is probably the reason why her serum sodium level dropped despite normal saline infusions. This morning patient is feeling fine, strength improving. She denies any chest pain chest pressure warmth or palpitations. Continue normal saline infusion at 75 cc/h, and BMP every 6 hours to trend serum sodium level. Goals of corrections 8-10 points per 24 hours to avoid overcorrection with TRIMMING PRESS OPERATOR consequences such as central pontine myelinolysis. Constitutional Vitals: Vital Signs Temp Pulse Resp BP Pulse Ox O2 Del Method 37.0 C 77 19 90/61 100 04/08/22 04:00 04/08/22 06:00 04/08/22 06:00 04/08/22 06:00 04/08/22 06:00 04/08/22 06:00 Period Temp Pulse Resp BP Sys/Tan Pulse Ox O2 Del Method O2 Flow Rate Last 24 Hr 36.1 C-37.0 C 57-77 9- 84-139/56-84 97-100 Nasal Cannula- Room Air Intake and Output 04/07/22 04/08/22 04/08/22 19:59 03:59 11:59 Intake Total 451 850 1263 Output Total 400 700 0 Balance -887 651 6091 Weight 79.492 kg 83.325 kg Intake & Output: Intake & Output 04/07/22 04/08/22 04/08/22 19:59 03:59 11:59 Intake Total 967 494 4418 Output Total 400 700 0 Balance -423 120 9960 Weight 79.492 kg 83.325 kg Intake: IV 570 1000 Sodium Chloride 0.9% 1,000 ml @ 1000 75 mls/hr IV .[id number] [facility] Rx#: [id number] Potassium Chloride 20 Meq In 520 Dextrose 5% in Water 250 ml @ 130 mls/hr IV ONCE ONE Rx#: [id number] Oral 120 360 0 Output: Void Amount 400 700 0 Other: Meal [place] with peanut butter Urine Appearance Clear Clear Urine Color Dark Yellow Bright Yellow [place] Urine Odor Normal Head Head exam: Present atraumatic and normal inspection Eye Eye exam: Present normal appearance ENT ENT exam: Present mucous membranes moist, normal exam and normal external ear exam Neck Neck exam: Present normal inspection Respiratory Respiratory exam: Present normal respiratory exam Cardiovascular Cardiovascular exam: Present normal rate and rhythm GI/Abdominal GI/Abdominal exam: Present normal bowel sounds Additional comments: Slightly distended. Back Exam Back exam: Present normal inspection Neurological Exam Neurological exam: Present alert and oriented X3 Skin Skin exam: Present intact and warm OBJ DATA Labs CBC & Chem 7: 04/07/22 11:00 04/08/22 05:48 Labs: Abnormal Lab Results 04/08/22 04/08/22 04/07/22 05:48 00:55 16:05 Neut % (Auto) Lymph % (Auto) Lymph # (Auto) D-Dimer POC Sodium Sodium 118 L* 118 L* Potassium POC Chloride Chloride 89 L 85 L Carbon Dioxide 20 L POC BUN BUN 24 H Creatinine Glucose 140 H 149 H POC Glucose Calcium POC WB Ioniz Calcium Magnesium 1.1 L Total Bilirubin Direct Bilirubin AST NT-Pro-B Natriuret Pep 04/07/22 04/07/22 04/07/22 16:05 12:27 11:00 Neut % (Auto) Lymph % (Auto) Lymph # (Auto) D-Dimer 1.54 H POC Sodium Sodium 129 L Potassium 2.7 L* POC Chloride Chloride Carbon Dioxide 19 L POC BUN BUN Creatinine 0.5 L Glucose 110 H POC Glucose Calcium 6.1 L POC WB Ioniz Calcium Magnesium Total Bilirubin 1.6 H Direct Bilirubin 0.3 H AST 46 H NT-Pro-B Natriuret Pep 1240.0 H 04/07/22 04/07/22 11:00 10:53 Neut % (Auto) 88.9 H Lymph % (Auto) 4.4 L Lymph # (Auto) 0.40 L D-Dimer POC Sodium 121 L Sodium Potassium POC Chloride 84 L Chloride Carbon Dioxide POC BUN 28 H BUN Creatinine Glucose POC Glucose 240 H Calcium POC WB Ioniz Calcium 1.06 L Magnesium Total Bilirubin Direct Bilirubin AST NT-Pro-B Natriuret Pep Meds: Medications Acetaminophen (Acetaminophen 325 Mg Tablet) 650 mg PO Q6HP PRN; Protocol PRN Reason: Per Pain Protocol/Fever > 101 Hydrocodone Bitart/Acetaminophen (Hydrocodone/Apap 5/325mg Tablet) 1 tab PO BIDP PRN; Protocol PRN Reason: migraine headache Albuterol Sulfate (Albuterol Sulfate 60 Puff Inhaler) 2 puff INH Q4HP PRN PRN Reason: asthma Albuterol/Ipratropium (Ipratropium/Albuterol 3 Ml Ampul.Neb) 3 ml NEB Q4HRT PRN PRN Reason: Wheezing Ascorbic Acid (Ascorbic Acid 500 Mg Tablet) 500 mg PO QDAY SHARRI Dextrose (Dextrose 50% 50 Ml Vial) 0 ml IV UD PRN PRN Reason: Per Sliding Scale Diagnostic Test (Pha) (Accu-Chek 1 Each Strip) 1 each FS ACHS [facility] Last Admin: 04/08/22 07:09 Dose: 1 each Docusate Sodium (Docusate Sodium 100 Mg Capsule) 100 mg PO BID [facility] Last Admin: 04/07/22 21:17 Dose: 100 mg Enoxaparin Sodium (Enoxaparin 40 Mg/0.4 Ml Syringe) 40 mg SQ DAILY [facility] Ferrous Sulfate (Ferrous Sulfate 325 Mg Tablet) 325 mg PO QDAY [facility] Glucose (Dextrose 31 Gm Oral.Susp) 15 gm PO PRN PRN PRN Reason: Hypoglycemia Sodium Chloride (Sodium Chloride 0.9%) 1,000 mls @ 75 mls/hr IV .[id number] [facility] Last Admin: 04/08/22 05:03 Dose: 75 mls/hr Insulin Human Lispro (Insulin Lispro 1 Unit/0.01 Ml Unit) 0 unit SQ ACHS [facility]; Protocol Last Admin: 04/08/22 07:25 Dose: Not Given Lactulose (Lactulose 20 Gm/30 Ml Oral.Lise) 10 gm PO DAILYP PRN PRN Reason: Constipation Levothyroxine Sodium (Levothyroxine 50 Mcg Tablet) 50 mcg PO 0730 [facility] Last Admin: 04/08/22 07:09 Dose: 50 mcg Magnesium Oxide (Magnesium Oxide 400 Mg Tablet) 400 mg PO BID [facility] Last Admin: 04/07/22 21:17 Dose: 400 mg Midodrine (Midodrine 5 Mg Tablet) 10 mg PO TID@0800,1200,1700 [facility] Last Admin: 04/08/22 07:09 Dose: 10 mg Ondansetron HCl (Ondansetron 4 Mg/2 Ml Vial) 4 mg IV Q4HP PRN; Protocol PRN Reason: Nausea And Vomiting Apremilast 30 Mg (Tablet) 1 dose PO BID [facility] Last Admin: 04/07/22 21:18 Dose: 1 dose Propranolol HCl (Propranolol 40 Mg Tablet) 40 mg PO BID [facility] Last Admin: 04/07/22 21:17 Dose: 40 mg Senna (Sennosides 1 Tablet) 2 tab PO HSP PRN PRN Reason: Constipation Simvastatin (Simvastatin 10 Mg Tablet) 10 mg PO QHS [facility] Last Admin: 04/07/22 21:17 Dose: 10 mg Sodium Chloride (0.9 % Sodium Chloride 10 Ml Syringe) 10 ml IV Q8 [facility] Last Admin: 04/08/22 05:33 Dose: Not Given Trazodone HCl (Trazodone Hcl 50 Mg Tablet) 25 mg PO HSP PRN PRN Reason: Insomnia Last Admin: 04/07/22 21:17 Dose: 25 mg Vitamin B Complex (Vitamin B Complex 1 Capsule) 1 cap PO QDAY [facility] A/P Assessment and plan (1) Diabetes mellitus, type II: Status: Chronic Qualifiers: Diabetes mellitus complication status: with neurologic complications Diabetes mellitus complication detail: with unspecified neuropathy Diabetes mellitus half-way insulin use: without half-way use Qualified Code(s): E11.40 - Type 2 diabetes mellitus with diabetic neuropathy, unspecified (2) Hyperlipidemia: Status: Chronic Qualifiers: Hyperlipidemia type: mixed hyperlipidemia Qualified Code(s): E78.2 - Mixed hyperlipidemia (3) Hypothyroidism: Status: Chronic Qualifiers: Hypothyroidism type: acquired Qualified Code(s): E03.9 - Hypothyroidism, unspecified (4) Psoriasis with arthropathy: Status: Chronic (5) Cirrhosis of liver with ascites: Status: Acute (6) Hyponatremia: Status: Acute (7) Hypokalemia: Status: Acute (8) Hypomagnesemia: Status: Acute Narrative A/P Narrative: Assessment and Plans: 1. Hyponatremia: Inpatient PCU telemetry Hold diuretics (Lasix, Aldactone) NS@75cc/hr BMP q6hr to trend serum sodium level Physical therapy evaluation and treamtent 2. Cirrhosis with ascites: Hold diuretics (Lasix, Aldactone) Midodrine Propranolol Outpatient GI follow up 3. Hyperlipidemia: Continue statin therapy 4. Hypothyroidism: Continue thyroid replacement therapy 5. T2DM: HgA1c Hold Metformin Insulin Lispro SSI AC HS Accu Check AC HS Hypoglycemia protocol Diabetic diet 6. Psoriasis: Apremilast Calcipotriene topical Halobetasol propionate topical 7. Hypokalemia/Hypomagnesemia: Will do oral replacement to avoid infusing hypotonic fluid into the patient to worsen hyponatremia Serial BMP/serum Mg level to trend, repeat replacement if needed GI ppx: not currently indicated DVT ppx: Lovenox Code status: Full Prognosis: guarded Disposition: inpatient PCU; PT Time Spent With Patient Time: Total time spent is greater than 50% in coordination of care (as documented) at patient's floor/unit and/or counseling patient: Total time spent with greater than 50% in coordination of care (as documented) at patient's floor/unit and/or counseling patient:: 25 - 35 minutes QUALITY Stroke Symptom Onset Unknown: No VTE Deep Vein Thrombosis/Pulmonary Embolism Present on Admission: No
[2022-04-08] MEDS: VITAMIN B COMPLEX 1 CAPSULE PO SCH (08:01)
[2022-04-08] MEDS: ASCORBIC ACID 500 MG TABLET PO SCH (08:01)
[2022-04-08] MEDS: FERROUS SULFATE 325 MG TABLET PO SCH (08:01)
[2022-04-08] MEDS: ACETAMINOPHEN 325 MG TABLET PO PRN (08:01)
[2022-04-08] MEDS: PROPRANOLOL 40 MG TABLET PO SCH ×2 (08:01→21:26)
[2022-04-08] MEDS: MAGNESIUM OXIDE 400 MG TABLET PO SCH ×2 (08:01→21:26)
[2022-04-08] MEDS: ENOXAPARIN 40 MG/0.4 ML SYRINGE SQ SCH (08:02)
[2022-04-08] MEDS: DOCUSATE SODIUM 100 MG CAPSULE PO SCH ×2 (08:02→21:25)
[2022-04-08 13:23] LABS: Estimated Average Glucose(eAG) 126 mg/dL
[2022-04-08 14:01] LABS: Blood Urea Nitrogen 27 mg/dL (8-23); Calcium 9.1 mg/dL (8.6-10.4); Carbon Dioxide 26 mmol/L (22-30); Chloride 86 mmol/L (96-108); Glomerular Filtration Rate 91; Glucose 151 mg/dL (70-105)
[2022-04-08] MEDS ORDERED: KETOROLAC 30 MG/ML VIAL IV PRN (14:05)
[2022-04-08] MEDS: ONDANSETRON 4 MG/2 ML VIAL IV PRN (14:10)
[2022-04-08 19:37] LABS: Blood Urea Nitrogen 36 mg/dL (8-23); Calcium 8.5 mg/dL (8.6-10.4); Carbon Dioxide 26 mmol/L (22-30); Chloride 87 mmol/L (96-108); Glomerular Filtration Rate 78; Glucose 134 mg/dL (70-105)
[2022-04-08] MEDS: SIMVASTATIN 10 MG TABLET PO SCH (21:26)
[2022-04-08] MEDS: traZODone HCL 50 MG TABLET PO PRN (21:26)
[2022-04-09 01:09] LABS: Blood Urea Nitrogen 42 mg/dL (8-23); Calcium 8.6 mg/dL (8.6-10.4); Carbon Dioxide 25 mmol/L (22-30); Chloride 87 mmol/L (96-108); Glomerular Filtration Rate 78; Glucose 159 mg/dL (70-105)
[2022-04-09] MEDS: 0.9 % SODIUM CHLORIDE 1,000 ML IV SCH (02:24)
[2022-04-09] MEDS: MELATONIN 3 MG TABLET PO PRN (02:26)
[2022-04-09] MEDS: 0.9 % SODIUM CHLORIDE 10 ML SYRINGE IV SCH ×3 (05:20→20:09)
[2022-04-09] MEDS: LEVOTHYROXINE 50 MCG TABLET PO SCH (06:59)
[2022-04-09] MEDS: INSULIN LISPRO 1 UNIT/0.01 ML UNIT SQ SCH ×4 (07:06→20:28)
[2022-04-09 07:43] LABS: Blood Urea Nitrogen 40 mg/dL (8-23); Carbon Dioxide 24 mmol/L (22-30); Chloride 89 mmol/L (96-108); Glomerular Filtration Rate 78; Glucose 132 mg/dL (70-105)
[2022-04-09] MEDS: ONDANSETRON 4 MG/2 ML VIAL IV PRN ×2 (08:27→20:40)
[2022-04-09] MEDS: VITAMIN B COMPLEX 1 CAPSULE PO SCH (08:27)
[2022-04-09] MEDS: MIDODRINE 5 MG TABLET PO SCH ×3 (08:27→16:53)
[2022-04-09] MEDS: PROPRANOLOL 40 MG TABLET PO SCH ×2 (08:27→20:09)
[2022-04-09] MEDS: MAGNESIUM OXIDE 400 MG TABLET PO SCH ×2 (08:28→20:09)
[2022-04-09] MEDS: FERROUS SULFATE 325 MG TABLET PO SCH (08:28)
[2022-04-09] MEDS: ASCORBIC ACID 500 MG TABLET PO SCH (08:28)
--- NOTE | 2022-04-09 08:30 | Internal Med Progress Note ---
SUBJECTIVE Subjective Patient information: Note initiated : 04/09/22 at 8:22 am Service Date, if different from initiated Date: [] Patient: Maryam Cruz a 66 y/o F admitted on 04/07/22 for Chest Pain. Chief Complaint: [] Interval history: Ms. Cruz is a 66 year old F history of cirrhosis with ascites, type 2 diabetes mellitus, dyslipidemia, hypothyroidism, psoriasis, presenting with 2-day history of palpitations, chest pressure, and warm of the chest wall. In addition, she was told 2 days ago that her serum potassium level was low at 123, with a baseline of 132. As result, she was told to cut her diuretics Lasix into half from the 1 60-80 Mg daily. A repeat serum sodium level was 121 today in the ED. Cardiac rhythm was on and off in atrial fibrillation's from telemetry blood and twelve-lead EKG done in the ED showing normal sinus rhythm. First troponin not elevated at <0.02. Patient currently denies any palpitation or chest pressure. She is only complaining of mild general body weakness. Admission request was called for symptomatic hyponatremia. 04/08: Serum troponin <0.02, <0.01, <0.01. Serum sodium level 121-->129-->118-->118. Her serum potassium at magnesium was also low overnight, and we will replaced with potassium rider and magnesium rider, respectively. Dose of lidocaine with D5W, and this is probably the reason why her serum sodium level dropped despite normal saline infusions. This morning patient is feeling fine, strength improving. She denies any chest pain chest pressure warmth or palpitations. Continue normal saline infusion at 75 cc/h, and BMP every 6 hours to trend serum sodium level. Goals of corrections 8-10 points per 24 hours to avoid overcorrection with COMMUNITY PROGRAM ASSISTANT consequences such as central pontine myelinolysis. 04/09: Serum sodium level 122 this morning. Patient is complaining of abdominal distension. She is complaining of nausea and poor appetite. She is complaining of general body weakness. Saline lock. 1500cc/day fluid restriction. Salt tab 1gm PO TID. BMP@1800. Goals of corrections 8-10 points per 24 hours to avoid overcorrection with COMMUNITY PROGRAM ASSISTANT consequences such as central pontine myelinolysis. PT/INR, therapeutic paracentesis when available. Constitutional Vitals: Vital Signs Temp Pulse Resp BP Pulse Ox O2 Del Method 37.2 C 64 12 100/66 98 04/09/22 08:01 04/09/22 08:01 04/09/22 08:01 04/09/22 08:01 04/09/22 08:01 04/09/22 07:25 Period Temp Pulse Resp BP Sys/Tan Pulse Ox O2 Del Method O2 Flow Rate Last 24 Hr 35.8 C-37.2 C 60-76 12-27 90-140/50-101 95-100 Room Air-Room Air Intake and Output 04/08/22 04/09/22 04/09/22 19:59 03:59 11:59 Intake Total 1881 1390 Output Total 450 150 200 Balance 1431 1240 -200 Weight 85.548 kg Intake & Output: Intake & Output 04/08/22 04/09/22 04/09/22 19:59 03:59 11:59 Intake Total 1881 1390 Output Total 450 150 200 Balance 1431 1240 -200 Weight 85.548 kg Intake: Nourishment/Supplement quantity 240 (ml) IV 921 970 Sodium Chloride 0.9% 1,000 ml @ 921 970 100 mls/hr IV .Q10H [facility] Rx#: [id number] Oral 960 180 Output: Void Amount 450 150 200 Other: Meal Dinner Nourishment/Supplement Percent of Meal Consumed 75% Feeding Ability Independent Nourishment/Supplement name Yamilex Urine Appearance Clear Clear Clear Urine Color Dark Yellow Dark [place] Dark Yellow [place] Stool Size Moderate Stool Color Brown Black Stool Consistency Soft # Bowel Movements 1 Head Head exam: Present atraumatic and normal inspection Eye Eye exam: Present normal appearance ENT ENT exam: Present mucous membranes moist, normal exam and normal external ear exam Neck Neck exam: Present normal inspection Respiratory Respiratory exam: Present normal respiratory exam Cardiovascular Cardiovascular exam: Present normal rate and rhythm GI/Abdominal GI/Abdominal exam: Present diminished bowel sounds and distended; Absent firm or organomegaly Back Exam Back exam: Present normal inspection Neurological Exam Neurological exam: Present alert and oriented X3 Skin Skin exam: Present intact and warm OBJ DATA Labs CBC & Chem 7: 04/07/22 11:00 04/09/22 05:49 Labs: Abnormal Lab Results 04/09/22 04/09/22 04/08/22 05:49 00:10 18:22 Neut % (Auto) Lymph % (Auto) Lymph # (Auto) D-Dimer POC Sodium Sodium 122 L 121 L 120 L Potassium POC Chloride Chloride 89 L 87 L 87 L Carbon Dioxide Anion Gap 7.0 L POC BUN BUN 40 H 42 H 36 H Creatinine Glucose 132 H 159 H 134 H POC Glucose Calcium 8.5 L POC WB Ioniz Calcium Magnesium Total Bilirubin Direct Bilirubin AST NT-Pro-B Natriuret Pep 04/08/22 04/08/22 04/08/22 12:15 05:48 00:55 Neut % (Auto) Lymph % (Auto) Lymph # (Auto) D-Dimer POC Sodium Sodium 118 L* 118 L* 118 L* Potassium POC Chloride Chloride 86 L 89 L 85 L Carbon Dioxide 20 L Anion Gap 6.0 L POC BUN BUN 27 H 24 H Creatinine Glucose 151 H 140 H 149 H POC Glucose Calcium POC WB Ioniz Calcium Magnesium Total Bilirubin Direct Bilirubin AST NT-Pro-B Natriuret Pep 04/07/22 04/07/22 04/07/22 16:05 16:05 12:27 Neut % (Auto) Lymph % (Auto) Lymph # (Auto) D-Dimer 1.54 H POC Sodium Sodium 129 L Potassium 2.7 L* POC Chloride Chloride Carbon Dioxide 19 L Anion Gap POC BUN BUN Creatinine 0.5 L Glucose 110 H POC Glucose Calcium 6.1 L POC WB Ioniz Calcium Magnesium 1.1 L Total Bilirubin Direct Bilirubin AST NT-Pro-B Natriuret Pep 04/07/22 04/07/22 04/07/22 11:00 11:00 10:53 Neut % (Auto) 88.9 H Lymph % (Auto) 4.4 L Lymph # (Auto) 0.40 L D-Dimer POC Sodium 121 L Sodium Potassium POC Chloride 84 L Chloride Carbon Dioxide Anion Gap POC BUN 28 H BUN Creatinine Glucose POC Glucose 240 H Calcium POC WB Ioniz Calcium 1.06 L Magnesium Total Bilirubin 1.6 H Direct Bilirubin 0.3 H AST 46 H NT-Pro-B Natriuret Pep 1240.0 H Meds: Medications Acetaminophen (Acetaminophen 325 Mg Tablet) 650 mg PO Q6HP PRN; Protocol PRN Reason: Per Pain Protocol/Fever > 101 Last Admin: 04/08/22 08:01 Dose: 650 mg Hydrocodone Bitart/Acetaminophen (Hydrocodone/Apap 5/325mg Tablet) 1 tab PO BIDP PRN; Protocol PRN Reason: migraine headache Last Admin: 04/08/22 13:24 Dose: 1 tab Albuterol Sulfate (Albuterol Sulfate 60 Puff Inhaler) 2 puff INH Q4HP PRN PRN Reason: asthma Albuterol/Ipratropium (Ipratropium/Albuterol 3 Ml Ampul.Neb) 3 ml NEB Q4HRT PRN PRN Reason: Wheezing Ascorbic Acid (Ascorbic Acid 500 Mg Tablet) 500 mg PO QDAY [facility] Last Admin: 04/08/22 08:01 Dose: 500 mg Dextrose (Dextrose 50% 50 Ml Vial) 0 ml IV UD PRN PRN Reason: Per Sliding Scale Diagnostic Test (Pha) (Accu-Chek 1 Each Strip) 1 each FS [facility] Last Admin: 04/09/22 07:03 Dose: 1 each Docusate Sodium (Docusate Sodium 100 Mg Capsule) 100 mg PO BID [facility] Last Admin: 04/08/22 21:25 Dose: Not Given Enoxaparin Sodium (Enoxaparin 40 Mg/0.4 Ml Syringe) 40 mg SQ DAILY [facility] Last Admin: 04/08/22 08:02 Dose: 40 mg Ferrous Sulfate (Ferrous Sulfate 325 Mg Tablet) 325 mg PO QDAY [facility] Last Admin: 04/08/22 08:01 Dose: 325 mg Glucose (Dextrose 31 Gm Oral.Susp) 15 gm PO PRN PRN PRN Reason: Hypoglycemia Insulin Human Lispro (Insulin Lispro 1 Unit/0.01 Ml Unit) 0 unit SQ [facility]; Protocol Last Admin: 04/09/22 07:06 Dose: 1 units Ketorolac Tromethamine (Ketorolac 30 Mg/Ml Vial) 15 mg IV Q6HP PRN PRN Reason: Pain Stop: 04/10/22 14:05 Last Admin: 04/08/22 14:24 Dose: 15 mg Lactulose (Lactulose 20 Gm/30 Ml Oral.Lise) 10 gm PO DAILYP PRN PRN Reason: Constipation Levothyroxine Sodium (Levothyroxine 50 Mcg Tablet) 50 mcg PO 0730 [facility] Last Admin: 04/09/22 06:59 Dose: 50 mcg Magnesium Oxide (Magnesium Oxide 400 Mg Tablet) 400 mg PO BID [facility] Last Admin: 04/08/22 21:26 Dose: 400 mg Melatonin (Melatonin 3 Mg Tablet) 3 mg PO HSP PRN PRN Reason: Insomnia Last Admin: 04/09/22 02:26 Dose: 3 mg Midodrine (Midodrine 5 Mg Tablet) 10 mg PO TID@0800,1200,1700 [facility] Last Admin: 04/08/22 16:46 Dose: 10 mg Ondansetron HCl (Ondansetron 4 Mg/2 Ml Vial) 4 mg IV Q4HP PRN; Protocol PRN Reason: Nausea And Vomiting Last Admin: 04/08/22 14:10 Dose: 4 mg Apremilast 30 Mg (Tablet) 1 dose PO BID [facility] Last Admin: 04/08/22 21:27 Dose: 1 dose Propranolol HCl (Propranolol 40 Mg Tablet) 40 mg PO BID [facility] Last Admin: 04/08/22 21:26 Dose: 40 mg Senna (Sennosides 1 Tablet) 2 tab PO HSP PRN PRN Reason: Constipation Simvastatin (Simvastatin 10 Mg Tablet) 10 mg PO QHS [facility] Last Admin: 04/08/22 21:26 Dose: 10 mg Sodium Chloride (0.9 % Sodium Chloride 10 Ml Syringe) 10 ml IV Q8 [facility] Last Admin: 04/09/22 05:20 Dose: Not Given Trazodone HCl (Trazodone Hcl 50 Mg Tablet) 50 mg PO HSP PRN PRN Reason: Insomnia Last Admin: 04/08/22 21:26 Dose: 50 mg Vitamin B Complex (Vitamin B Complex 1 Capsule) 1 cap PO QDAY [facility] Last Admin: 04/08/22 08:01 Dose: 1 cap A/P Assessment and plan (1) Diabetes mellitus, type II: Status: Chronic Qualifiers: Diabetes mellitus complication status: with neurologic complications Diabetes mellitus complication detail: with unspecified neuropathy Diabetes mellitus golf course superintendent insulin use: without senior living use Qualified Code(s): E11.40 - Type 2 diabetes mellitus with diabetic neuropathy, unspecified (2) Hyperlipidemia: Status: Chronic Qualifiers: Hyperlipidemia type: mixed hyperlipidemia Qualified Code(s): E78.2 - Mixed hyperlipidemia (3) Hypothyroidism: Status: Chronic Qualifiers: Hypothyroidism type: acquired Qualified Code(s): E03.9 - Hy pothyroidism, unspecified (4) Psoriasis with arthropathy: Status: Chronic (5) Cirrhosis of liver with ascites: Status: Acute (6) Hyponatremia: Status: Acute (7) Hypokalemia: Status: Acute (8) Hypomagnesemia: Status: Acute Narrative A/P Narrative: Assessment and Plans: 1. Hyponatremia: Inpatient PCU telemetry Hold diuretics (Lasix, Aldactone) Saline lock 1500cc/day fluid restriction Salt tab 1gm PO TID BMP@1800 Physical therapy evaluation and treatment 2. Cirrhosis with ascites: Hold diuretics (Lasix, Aldactone) Midodrine Propranolol Outpatient GI follow up PT/INR in preparation for elective therapeutic paracentesis when available 3. Hyperlipidemia: Continue statin therapy 4. Hypothyroidism: Continue thyroid replacement therapy 5. T2DM: HgA1c Hold Metformin Insulin Lispro SSI AC HS Accu Check AC HS Hypoglycemia protocol Diabetic diet 6. Psoriasis: Apremilast Calcipotriene topical Halobetasol propionate topical 7. Hypokalemia/Hypomagnesemia: Will do oral replacement to avoid infusing hypotonic fluid into the patient to worsen hyponatremia Serial BMP/serum Mg level to trend, repeat replacement if needed GI ppx: not currently indicated DVT ppx: Lovenox Code status: Full Prognosis: guarded Disposition: inpatient PCU; PT Time Spent With Patient Time: Total time spent is greater than 50% in coordination of care (as documented) at patient's floor/unit and/or counseling patient: Total time spent with greater than 50% in coordination of care (as documented) at patient's floor/unit and/or counseling patient:: 25 - 35 minutes QUALITY Stroke Symptom Onset Unknown: No VTE Deep Vein Thrombosis/Pulmonary Embolism Present on Admission: No
[2022-04-09] MEDS: SODIUM CHLORIDE 1 GM TABLET PO SCH ×3 (08:37→20:09)
[2022-04-09] MEDS: ENOXAPARIN 40 MG/0.4 ML SYRINGE SQ SCH (08:48)
[2022-04-09] MEDS: DOCUSATE SODIUM 100 MG CAPSULE PO SCH ×2 (08:48→20:09)
--- NOTE | 2022-04-09 09:47 | EKG ---
[facility] Test Date: 2022-04-07 Pat Name: Maryam Cruz Department: ED Room: Gender: Female Director Of Clinical Education: : 1955 Requested By: Kenton Frazier Order Number: [id number] Reading MD: Mao Britton Measurements Intervals [place] Rate: 63 P: 43 CO: 146 QRS: 26 QRSD: 84 T: 32 QT: 458 QTc: 470 Interpretive Statements Sinus rhythm Low voltage, precordial leads Electronically Signed On 04-09-2022 9:46:54 PST by Mao Britton /store/[id number]
[2022-04-09] MEDS ORDERED: PROMETHAZINE 25 MG/ML VIAL IV PRN ×2 (09:59→18:35)
[2022-04-09 18:35] LABS: INR 1.2 (0.9-1.1); Prothrombin Time 15.3 sec (11.9-14.5)
[2022-04-09 18:46] LABS: Blood Urea Nitrogen 38 mg/dL (8-23); Calcium 9.4 mg/dL (8.6-10.4); Carbon Dioxide 25 mmol/L (22-30); Chloride 89 mmol/L (96-108); Glomerular Filtration Rate 91; Glucose 130 mg/dL (70-105)
[2022-04-09] MEDS: SIMVASTATIN 10 MG TABLET PO SCH (20:09)
[2022-04-09] MEDS: traZODone HCL 50 MG TABLET PO PRN (20:28)
[2022-04-10] MEDS: ONDANSETRON 4 MG/2 ML VIAL IV PRN ×2 (01:58→07:40)
[2022-04-10] MEDS: MELATONIN 3 MG TABLET PO PRN (01:58)
[2022-04-10] MEDS: 0.9 % SODIUM CHLORIDE 10 ML SYRINGE IV SCH ×3 (04:46→20:25)
[2022-04-10] MEDS: MIDODRINE 5 MG TABLET PO SCH ×3 (07:38→17:32)
[2022-04-10] MEDS: LEVOTHYROXINE 50 MCG TABLET PO SCH (07:38)
[2022-04-10] MEDS: INSULIN LISPRO 1 UNIT/0.01 ML UNIT SQ SCH ×4 (07:38→20:38)
--- NOTE | 2022-04-10 07:43 | Internal Med Progress Note ---
SUBJECTIVE Subjective Patient information: Note initiated : 04/10/22 at 7:39 am Service Date, if different from initiated Date: [] Patient: Maryam Cruz a 66 y/o F admitted on 04/07/22 for Chest Pain. Chief Complaint: [] Interval history: Ms. Cruz is a 66 year old F history of cirrhosis with ascites, type 2 diabetes mellitus, dyslipidemia, hypothyroidism, psoriasis, presenting with 2-day history of palpitations, chest pressure, and warm of the chest wall. In addition, she was told 2 days ago that her serum potassium level was low at 123, with a baseline of 132. As result, she was told to cut her diuretics Lasix into half from the 1 60-80 Mg daily. A repeat serum sodium level was 121 today in the ED. Cardiac rhythm was on and off in atrial fibrillation's from telemetry blood and twelve-lead EKG done in the ED showing normal sinus rhythm. First troponin not elevated at <0.02. Patient currently denies any palpitation or chest pressure. She is only complaining of mild general body weakness. Admission request was called for symptomatic hyponatremia. 04/08: Serum troponin <0.02, <0.01, <0.01. Serum sodium level 121-->129-->118-->118. Her serum potassium at magnesium was also low overnight, and we will replaced with potassium rider and magnesium rider, respectively. Dose of lidocaine with D5W, and this is probably the reason why her serum sodium level dropped despite normal saline infusions. This morning patient is feeling fine, strength improving. She denies any chest pain chest pressure warmth or palpitations. Continue normal saline infusion at 75 cc/h, and BMP every 6 hours to trend serum sodium level. Goals of corrections 8-10 points per 24 hours to avoid overcorrection with QUALITY CONTROL AUDITOR consequences such as central pontine myelinolysis. 04/09: Serum sodium level 122 this morning. Patient is complaining of abdominal distension. She is complaining of nausea and poor appetite. She is complaining of general body weakness. Saline lock. 1500cc/day fluid restriction. Salt tab 1gm PO TID. BMP@1800. Goals of corrections 8-10 points per 24 hours to avoid overcorrection with QUALITY CONTROL AUDITOR consequences such as central pontine myelinolysis. PT/INR, therapeutic paracentesis when available. 04/10: Serum sodium level last evening (04/09) was 123, this morning's level pending. Patient is complaining of abdominal distention's. She is coming of nausea. She denies any vomiting. She denies any abdominal pain. She is coming of general weakness, same degree relative to yesterday. Plan for therapeutic paracentesis this morning to relieve her ascites. Saline lock. 1500cc/day fluid restriction. Salt tab 1gm PO TID. continue to monitor for this morning's sodium level. Physical therapy evaluation and treatments for placement planning. Constitutional Vitals: Vital Signs Temp Pulse Resp BP Pulse Ox O2 Del Method 36.2 C 75 12 94/63 97 04/10/22 04:01 04/10/22 06:01 04/10/22 06:01 04/10/22 06:01 04/10/22 06:01 04/09/22 07:25 Period Temp Pulse Resp BP Sys/Tan Pulse Ox O2 Del Method O2 Flow Rate Last 24 Hr 36.2 C-37.3 C 64-93 9-21 91-117/61-83 96-100 Intake and Output 04/09/22 04/10/22 04/10/22 19:59 03:59 11:59 Intake Total 1340 520 Output Total 675 500 Balance 665 -500 520 Weight 88.405 kg Intake & Output: Intake & Output 04/09/22 04/10/22 04/10/22 19:59 03:59 11:59 Intake Total 1340 520 Output Total 675 500 Balance 665 -500 520 Weight 88.405 kg Intake: Nourishment/Supplement quantity 240 (ml) IV 0 Sodium Chloride 0.9% 1,000 ml @ 0 100 mls/hr IV .Q10H [facility] Rx#: [id number] Oral 1100 520 Output: Void Amount 675 500 Other: Meal Lunch Percent of Meal Consumed 100% Nourishment/Supplement name glucerna Urine Appearance Clear Clear Urine Color Light [place] Dark Yellow Urine Odor Normal Strong Head Head exam: Present atraumatic and normal inspection Eye Eye exam: Present normal appearance ENT ENT exam: Present mucous membranes moist, normal exam and normal external ear exam Neck Neck exam: Present normal inspection Respiratory Respiratory exam: Present normal respiratory exam Cardiovascular Cardiovascular exam: Present normal rate and rhythm GI/Abdominal GI/Abdominal exam: Present diminished bowel sounds and distended; Absent tenderness Back Exam Back exam: Present normal inspection Neurological Exam Neurological exam: Present alert and oriented X3 Skin Skin exam: Present intact and warm OBJ DATA Labs CBC & Chem 7: 04/07/22 11:00 04/09/22 17:40 Labs: Abnormal Lab Results 04/09/22 04/09/22 04/09/22 17:40 17:40 05:49 Neut % (Auto) Lymph % (Auto) Lymph # (Auto) PT 15.3 H INR 1.2 H D-Dimer POC Sodium Sodium 123 L 122 L Potassium POC Chloride Chloride 89 L 89 L Carbon Dioxide Anion Gap POC BUN BUN 38 H 40 H Creatinine Glucose 130 H 132 H POC Glucose Calcium POC WB Ioniz Calcium Magnesium Total Bilirubin Direct Bilirubin AST NT-Pro-B Natriuret Pep 04/09/22 04/08/22 04/08/22 00:10 18:22 12:15 Neut % (Auto) Lymph % (Auto) Lymph # (Auto) PT INR D-Dimer POC Sodium Sodium 121 L 120 L 118 L* Potassium POC Chloride Chloride 87 L 87 L 86 L Carbon Dioxide Anion Gap 7.0 L 6.0 L POC BUN BUN 42 H 36 H 27 H Creatinine Glucose 159 H 134 H 151 H POC Glucose Calcium 8.5 L POC WB Ioniz Calcium Magnesium Total Bilirubin Direct Bilirubin AST NT-Pro-B Natriuret Pep 04/08/22 04/08/22 04/07/22 05:48 00:55 16:05 Neut % (Auto) Lymph % (Auto) Lymph # (Auto) PT INR D-Dimer POC Sodium Sodium 118 L* 118 L* Potassium POC Chloride Chloride 89 L 85 L Carbon Dioxide 20 L Anion Gap POC BUN BUN 24 H Creatinine Glucose 140 H 149 H POC Glucose Calcium POC WB Ioniz Calcium Magnesium 1.1 L Total Bilirubin Direct Bilirubin AST NT-Pro-B Natriuret Pep 04/07/22 04/07/22 04/07/22 16:05 12:27 11:00 Neut % (Auto) Lymph % (Auto) Lymph # (Auto) PT INR D-Dimer 1.54 H POC Sodium Sodium 129 L Potassium 2.7 L* POC Chloride Chloride Carbon Dioxide 19 L Anion Gap POC BUN BUN Creatinine 0.5 L Glucose 110 H POC Glucose Calcium 6.1 L POC WB Ioniz Calcium Magnesium Total Bilirubin 1.6 H Direct Bilirubin 0.3 H AST 46 H NT-Pro-B Natriuret Pep 1240.0 H 04/07/22 04/07/22 11:00 10:53 Neut % (Auto) 88.9 H Lymph % (Auto) 4.4 L Lymph # (Auto) 0.40 L PT INR D-Dimer POC Sodium 121 L Sodium Potassium POC Chloride 84 L Chloride Carbon Dioxide Anion Gap POC BUN 28 H BUN Creatinine Glucose POC Glucose 240 H Calcium POC WB Ioniz Calcium 1.06 L Magnesium Total Bilirubin Direct Bilirubin AST NT-Pro-B Natriuret Pep Meds: Medications Acetaminophen (Acetaminophen 325 Mg Tablet) 650 mg PO Q6HP PRN; Protocol PRN Reason: Per Pain Protocol/Fever > 101 Last Admin: 04/08/22 08:01 Dose: 650 mg Hydrocodone Bitart/Acetaminophen (Hydrocodone/Apap 5/325mg Tablet) 1 tab PO BIDP PRN; Protocol PRN Reason: migraine headache Last Admin: 04/08/22 13:24 Dose: 1 tab Albuterol Sulfate (Albuterol Sulfate 60 Puff Inhaler) 2 puff INH Q4HP PRN PRN Reason: asthma Albuterol/Ipratropium (Ipratropium/Albuterol 3 Ml Ampul.Neb) 3 ml NEB Q4HRT PRN PRN Reason: Wheezing Ascorbic Acid (Ascorbic Acid 500 Mg Tablet) 500 mg PO QDAY [facility] Last Admin: 04/09/22 08:28 Dose: 500 mg Dextrose (Dextrose 50% 50 Ml Vial) 0 ml IV UD PRN PRN Reason: Per Sliding Scale Diagnostic Test (Pha) (Accu-Chek 1 Each Strip) 1 each FS [facility] Last Admin: 04/10/22 07:37 Dose: 1 each Docusate Sodium (Docusate Sodium 100 Mg Capsule) 100 mg PO BID [facility] Last Admin: 04/09/22 20:09 Dose: Not Given Enoxaparin Sodium (Enoxaparin 40 Mg/0.4 Ml Syringe) 40 mg SQ DAILY [facility] Last Admin: 04/09/22 08:48 Dose: 40 mg Ferrous Sulfate (Ferrous Sulfate 325 Mg Tablet) 325 mg PO QDAY [facility] Last Admin: 04/09/22 08:28 Dose: 325 mg Glucose (Dextrose 31 Gm Oral.Susp) 15 gm PO PRN PRN PRN Reason: Hypoglycemia Insulin Human Lispro (Insulin Lispro 1 Unit/0.01 Ml Unit) 0 unit SQ [facility]; Protocol Last Admin: 04/10/22 07:38 Dose: 1 units Ketorolac Tromethamine (Ketorolac 30 Mg/Ml Vial) 15 mg IV Q6HP PRN PRN Reason: Pain Stop: 04/10/22 14:05 Last Admin: 04/08/22 14:24 Dose: 15 mg Lactulose (Lactulose 20 Gm/30 Ml Oral.Lise) 10 gm PO DAILYP PRN PRN Reason: Constipation Levothyroxine Sodium (Levothyroxine 50 Mcg Tablet) 50 mcg PO 0730 [facility] Last Admin: 04/10/22 07:38 Dose: 50 mcg Magnesium Oxide (Magnesium Oxide 400 Mg Tablet) 400 mg PO BID [facility] Last Admin: 04/09/22 20:09 Dose: 400 mg Melatonin (Melatonin 3 Mg Tablet) 3 mg PO HSP PRN PRN Reason: Insomnia Last Admin: 04/10/22 01:58 Dose: 3 mg Midodrine (Midodrine 5 Mg Tablet) 10 mg PO TID@0800,1200,1700 [facility] Last Admin: 04/10/22 07:38 Dose: 10 mg Ondansetron HCl (Ondansetron 4 Mg/2 Ml Vial) 4 mg IV Q4HP PRN; Protocol PRN Reason: Nausea And Vomiting Last Admin: 04/10/22 01:58 Dose: 4 mg Apremilast 30 Mg (Tablet) 1 dose PO BID [facility] Last Admin: 04/09/22 20:09 Dose: 1 dose Promethazine HCl (Promethazine 25 Mg/Ml Vial) 12.5 mg IV Q4-6HP PRN PRN Reason: Nausea And Vomiting Last Admin: 04/09/22 23:38 Dose: 12.5 mg Propranolol HCl (Propranolol 40 Mg Tablet) 40 mg PO BID [facility] Last Admin: 04/09/22 20:09 Dose: 40 mg Senna (Sennosides 1 Tablet) 2 tab PO HSP PRN PRN Reason: Constipation Simvastatin (Simvastatin 10 Mg Tablet) 10 mg PO QHS [facility] Last Admin: 04/09/22 20:09 Dose: 10 mg Sodium Chloride (0.9 % Sodium Chloride 10 Ml Syringe) 10 ml IV Q8 [facility] Last Admin: 04/10/22 04:46 Dose: 10 ml Sodium Chloride (Sodium Chloride 1 Gm Tablet) 1 gm PO TID [facility] Last Admin: 04/09/22 20:09 Dose: 1 gm Trazodone HCl (Trazodone Hcl 50 Mg Tablet) 50 mg PO HSP PRN PRN Reason: Insomnia Last Admin: 04/09/22 20:28 Dose: 50 mg Vitamin B Complex (Vitamin B Complex 1 Capsule) 1 cap PO QDAY [facility] Last Admin: 04/09/22 08:27 Dose: 1 cap A/P Assessment and plan (1) Diabetes mellitus, type II: Status: Chronic Qualifiers: Diabetes mellitus complication status: with neurologic complications Diabetes mellitus complication detail: with unspecified neuropathy Diabetes mellitus detention insulin use: without meterman use Qualified Code(s): E11.40 - Type 2 diabetes mellitus with diabetic neuropathy, unspecified (2) Hyperlipidemia: Status: Chronic Qualifiers: Hyperlipidemia type: mixed hyperlipidemia Qualified Code(s): E78.2 - Mixed hyperlipidemia (3) Hypothyroidism: Status: Chronic Qualifiers: Hypothyroidism type: acquired Qualified Code(s): E03.9 - Hypothyroidism, unspecified (4) Psoriasis with arthropathy: Status: Chronic (5) Cirrhosis of liver with ascites: Status: Acute (6) Hyponatremia: Status: Acute (7) Hypokalemia: Status: Acute (8) Hypomagnesemia: Status: Acute Narrative A/P Narrative: Assessment and Plans: 1. Hyponatremia: Inpatient PCU telemetry Hold diuretics (Lasix, Aldactone) Saline lock 1500cc/day fluid restriction Salt tab 1gm PO TID Daily chemistry to trend serum sodium level Physical therapy evaluation and treatment for placement planning 2. Cirrhosis with ascites: Hold diuretics (Lasix, Aldactone) Midodrine Propranolol Outpatient GI follow up PT/INR in preparation for elective therapeutic paracentesis, planned for today 04/10 3. Hyperlipidemia: Continue statin therapy 4. Hypothyroidism: Continue thyroid replacement therapy 5. T2DM: HgA1c Hold Metformin Insulin Lispro SSI AC HS Accu Check AC HS Hypoglycemia protocol Diabetic diet 6. Psoriasis: Apremilast Calcipotriene topical Halobetasol propionate topical 7. Hypokalemia/Hypomagnesemia: Will do oral replacement to avoid infusing hypotonic fluid into the patient to worsen hyponatremia Serial BMP/serum Mg level to trend, repeat replacement if needed GI ppx: not currently indicated DVT ppx: Lovenox (hold for paracentesis) Code status: Full Prognosis: guarded Disposition: inpatient PCU; PT Time Spent With Patient Time: Total time spent is greater than 50% in coordination of care (as documented) at patient's floor/unit and/or counseling patient: Total time spent with greater than 50% in coordination of care (as documented) at patient's floor/unit and/or counseling patient:: 25 - 35 minutes QUALITY Stroke Symptom Onset Unknown: No VTE Deep Vein Thrombosis/Pulmonary Embolism Present on Admission: No
[2022-04-10 07:47] LABS: Blood Urea Nitrogen 39 mg/dL (8-23); Calcium 9.1 mg/dL (8.6-10.4); Carbon Dioxide 22 mmol/L (22-30); Chloride 91 mmol/L (96-108); Glomerular Filtration Rate 78; Glucose 175 mg/dL (70-105)
[2022-04-10] MEDS ORDERED: ALBUMIN HUMAN 12.5 GM/50 ML BAG IV ONE (09:12)
[2022-04-10] MEDS ORDERED: ALBUMIN HUMAN 25 GM/100 ML BAG IV ONE (09:29)
[2022-04-10] MEDS: DOCUSATE SODIUM 100 MG CAPSULE PO SCH ×2 (10:10→20:25)
[2022-04-10] MEDS: ENOXAPARIN 40 MG/0.4 ML SYRINGE SQ SCH (10:11)
[2022-04-10] MEDS: FERROUS SULFATE 325 MG TABLET PO SCH (10:19)
[2022-04-10] MEDS: PROPRANOLOL 40 MG TABLET PO SCH ×2 (10:19→20:25)
[2022-04-10] MEDS: MAGNESIUM OXIDE 400 MG TABLET PO SCH ×2 (10:19→20:25)
--- NOTE | 2022-04-10 10:19 | Ultrasound Report ---
Ultrasound-guided Paracentesis Technique: The procedure and risks including possibility of bleeding, infection, bowel and parenchymal organ perforation were explained the patient. She understood and wished to proceed. [employer] scanning demonstrated ascites in right upper quadrant quadrant which was free of bowel. The skin was marked, prepped and locally anesthetized 1% lidocaine to the level of the parietal peritoneum using a 25-gauge needle. A 18-gauge Yueh needle was then placed under sonographic guidance into the ascites and five L of simple appearing ascites was aspirated and sent for requested studies. The needle was removed. Postprocedure scanning shows minimal residual ascites. No apparent complication - patient tolerated procedure well. IMPRESSION: Successful ultrasound-guided paracentesis yielding 5 L of simple appearing transudative ascites. The fluid was sent to the laboratory for requested studies. Postprocedure scanning shows only minimal residual fluid. Patient tolerated procedure well without apparent complication Interpreted and Authenticated by: Frandy Kruse 04/10/22
[2022-04-10] MEDS: VITAMIN B COMPLEX 1 CAPSULE PO SCH (10:20)
[2022-04-10] MEDS: SODIUM CHLORIDE 1 GM TABLET PO SCH ×3 (10:20→20:25)
[2022-04-10] MEDS: ASCORBIC ACID 500 MG TABLET PO SCH (10:20)
--- NOTE | 2022-04-10 13:02 | Internal Med Progress Note ---
SUBJECTIVE Subjective Patient information: Note initiated : 04/10/22 at 1:01 pm Service Date, if different from initiated Date: [] Patient: Maryam Cruz a 66 y/o F admitted on 04/07/22 for Chest Pain. Chief Complaint: [] Interval history: Ms. Cruz is a 66 year old F history of cirrhosis with ascites, type 2 diabetes mellitus, dyslipidemia, hypothyroidism, psoriasis, presenting with 2-day history of palpitations, chest pressure, and warm of the chest wall. In addition, she was told 2 days ago that her serum potassium level was low at 123, with a baseline of 132. As result, she was told to cut her diuretics Lasix into half from the 1 60-80 Mg daily. A repeat serum sodium level was 121 today in the ED. Cardiac rhythm was on and off in atrial fibrillation's from telemetry blood and twelve-lead EKG done in the ED showing normal sinus rhythm. First troponin not elevated at <0.02. Patient currently denies any palpitation or chest pressure. She is only complaining of mild general body weakness. Admission request was called for symptomatic hyponatremia. 04/08: Serum troponin <0.02, <0.01, <0.01. Serum sodium level 121-->129-->118-->118. Her serum potassium at magnesium was also low overnight, and we will replaced with potassium rider and magnesium rider, respectively. Dose of lidocaine with D5W, and this is probably the reason why her serum sodium level dropped despite normal saline infusions. This morning patient is feeling fine, strength improving. She denies any chest pain chest pressure warmth or palpitations. Continue normal saline infusion at 75 cc/h, and BMP every 6 hours to trend serum sodium level. Goals of corrections 8-10 points per 24 hours to avoid overcorrection with ANGIO TECHNOLOGIST consequences such as central pontine myelinolysis. 04/09: Serum sodium level 122 this morning. Patient is complaining of abdominal distension. She is complaining of nausea and poor appetite. She is complaining of general body weakness. Saline lock. 1500cc/day fluid restriction. Salt tab 1gm PO TID. BMP@1800. Goals of corrections 8-10 points per 24 hours to avoid overcorrection with ANGIO TECHNOLOGIST consequences such as central pontine myelinolysis. PT/INR, therapeutic paracentesis when available. 04/10: Serum sodium level last evening (04/09) was 123, this morning's level pending. Patient is complaining of abdominal distention's. She is coming of nausea. She denies any vomiting. She denies any abdominal pain. She is coming of general weakness, same degree relative to yesterday. Plan for therapeutic paracentesis this morning to relieve her ascites. Saline lock. 1500cc/day fluid restriction. Salt tab 1gm PO TID. continue to monitor for this morning's sodium level. Physical therapy evaluation and treatments for placement planning. Constitutional Vitals: Vital Signs Temp Pulse Resp BP Pulse Ox O2 Del Method O2 Flow Rate 97.7 F 75 11 L 91/59 99 0 04/10/22 12:00 04/10/22 12:00 04/10/22 12:00 04/10/22 12:00 04/10/22 12:00 04/10/22 10:09 04/10/22 10:09 Period Temp Pulse Resp BP Sys/Tan Pulse Ox O2 Del Method O2 Flow Rate Last 24 Hr 97.1 F-99.1 F 73-93 01-19 91-117/50-83 96-100 Room Air-Room Air 0 Intake and Output 04/10/22 04/10/22 04/10/22 03:59 11:59 19:59 Intake Total 1040 Output Total 500 600 Balance -500 440 Intake & Output: Intake & Output 04/10/22 04/10/22 04/10/22 03:59 11:59 19:59 Intake Total 1040 Output Total 500 600 Balance -500 440 Intake: IV 150 Oral 890 Output: Void Amount 500 600 Other: Meal Breakfast Percent of Meal Consumed 100% Urine Appearance Clear Clear Urine Color Dark Yellow Dark Yellow Urine Odor Strong Exam: General: Alert, Awake, No acute Distress, obese Eyes/N/T: EOMI, Head/Neck: neck supple, CV: RRR, No murmurs, Pulm: Clear b/l, no wheezing/rhonchi/rales Abd: soft, distended, nontender, +BS x4 Ext: no clubbing/cyanosis/edema Neuro: Alert, no focal deficits, moves all extremities, Skin: warm/dry OBJ DATA Labs CBC & Chem 7: 04/07/22 11:00 04/10/22 04:57 Labs: Abnormal Lab Results 04/10/22 04/09/22 04/09/22 04:57 17:40 17:40 PT 15.3 H INR 1.2 H D-Dimer Sodium 124 L 123 L Potassium Chloride 91 L 89 L Carbon Dioxide Anion Gap BUN 39 H 38 H Creatinine Glucose 175 H 130 H Calcium Magnesium 04/09/22 04/09/22 04/08/22 05:49 00:10 18:22 PT INR D-Dimer Sodium 122 L 121 L 120 L Potassium Chloride 89 L 87 L 87 L Carbon Dioxide Anion Gap 7.0 L BUN 40 H 42 H 36 H Creatinine Glucose 132 H 159 H 134 H Calcium 8.5 L Magnesium 04/08/22 04/08/22 04/08/22 12:15 05:48 00:55 PT INR D-Dimer Sodium 118 L* 118 L* 118 L* Potassium Chloride 86 L 89 L 85 L Carbon Dioxide 20 L Anion Gap 6.0 L BUN 27 H 24 H Creatinine Glucose 151 H 140 H 149 H Calcium Magnesium 04/07/22 04/07/22 04/07/22 16:05 16:05 12:27 PT INR D-Dimer 1.54 H Sodium 129 L Potassium 2.7 L* Chloride Carbon Dioxide 19 L Anion Gap BUN Creatinine 0.5 L Glucose 110 H Calcium 6.1 L Magnesium 1.1 L Meds: Medications Acetaminophen (Acetaminophen 325 Mg Tablet) 650 mg PO Q6HP PRN; Protocol PRN Reason: Per Pain Protocol/Fever > 101 Last Admin: 04/08/22 08:01 Dose: 650 mg Hydrocodone Bitart/Acetaminophen (Hydrocodone/Apap 5/325mg Tablet) 1 tab PO BIDP PRN; Protocol PRN Reason: migraine headache Last Admin: 04/08/22 13:24 Dose: 1 tab Albuterol Sulfate (Albuterol Sulfate 60 Puff Inhaler) 2 puff INH Q4HP PRN PRN Reason: asthma Albuterol/Ipratropium (Ipratropium/Albuterol 3 Ml Ampul.Neb) 3 ml NEB Q4HRT PRN PRN Reason: Wheezing Ascorbic Acid (Ascorbic Acid 500 Mg Tablet) 500 mg PO QDAY [facility] Last Admin: 04/10/22 10:20 Dose: 500 mg Dextrose (Dextrose 50% 50 Ml Vial) 0 ml IV UD PRN PRN Reason: Per Sliding Scale Diagnostic Test (Pha) (Accu-Chek 1 Each Strip) 1 each FS [facility] Last Admin: 04/10/22 11:36 Dose: 1 each Docusate Sodium (Docusate Sodium 100 Mg Capsule) 100 mg PO BID [facility] Last Admin: 04/10/22 10:10 Dose: Not Given Enoxaparin Sodium (Enoxaparin 40 Mg/0.4 Ml Syringe) 40 mg SQ DAILY [facility] Last Admin: 04/10/22 10:11 Dose: Not Given Ferrous Sulfate (Ferrous Sulfate 325 Mg Tablet) 325 mg PO QDAY [facility] Last Admin: 04/10/22 10:19 Dose: 325 mg Glucose (Dextrose 31 Gm Oral.Susp) 15 gm PO PRN PRN PRN Reason: Hypoglycemia Insulin Human Lispro (Insulin Lispro 1 Unit/0.01 Ml Unit) 0 unit SQ [facility]; Protocol Last Admin: 04/10/22 11:36 Dose: Not Given Ketorolac Tromethamine (Ketorolac 30 Mg/Ml Vial) 15 mg IV Q6HP PRN PRN Reason: Pain Stop: 04/10/22 14:05 Last Admin: 04/08/22 14:24 Dose: 15 mg Lactulose (Lactulose 20 Gm/30 Ml Oral.Lise) 10 gm PO DAILYP PRN PRN Reason: Constipation Levothyroxine Sodium (Levothyroxine 50 Mcg Tablet) 50 mcg PO 0730 [facility] Last Admin: 04/10/22 07:38 Dose: 50 mcg Magnesium Oxide (Magnesium Oxide 400 Mg Tablet) 400 mg PO BID [facility] Last Admin: 04/10/22 10:19 Dose: 400 mg Melatonin (Melatonin 3 Mg Tablet) 3 mg PO HSP PRN PRN Reason: Insomnia Last Admin: 04/10/22 01:58 Dose: 3 mg Midodrine (Midodrine 5 Mg Tablet) 10 mg PO TID@0800,1200,1700 [facility] Last Admin: 04/10/22 12:49 Dose: 10 mg Ondansetron HCl (Ondansetron 4 Mg/2 Ml Vial) 4 mg IV Q4HP PRN; Protocol PRN Reason: Nausea And Vomiting Last Admin: 04/10/22 07:40 Dose: 4 mg [facility] Prometh[facility] HCl (Promethazine 25 Mg/Ml Vial) 12.5 mg IV Q4-6HP PRN PRN Reason: Nausea And Vomiting Last Admin: 04/09/22 23:38 Dose: 12.5 mg Propranolol HCl (Propranolol 40 Mg Tablet) 40 mg PO BID [facility] Last Admin: 04/10/22 10:19 Dose: 40 mg Senna (Sennosides 1 Tablet) 2 tab PO HSP PRN PRN Reason: Constipation Simvastatin (Simvastatin 10 Mg Tablet) 10 mg PO QHS [facility] Last Admin: 04/09/22 20:09 Dose: 10 mg Sodium Chloride (0.9 % Sodium Chloride 10 Ml Syringe) 10 ml IV Q8 [facility] Last Admin: 04/10/22 04:46 Dose: 10 ml Sodium Chloride (Sodium Chloride 1 Gm Tablet) 1 gm PO TID [facility] Last Admin: 04/10/22 10:20 Dose: 1 gm Trazodone HCl (Trazodone Hcl 50 Mg Tablet) 50 mg PO HSP PRN PRN Reason: Insomnia Last Admin: 04/09/22 20:28 Dose: 50 mg Vitamin B Complex (Vitamin B Complex 1 Capsule) 1 cap PO QDAY [facility] Last Admin: 04/10/22 10:20 Dose: 1 cap A/P Narrative A/P Narrative: Assessment and Plans: *Hyponatremia: -Hold diuretics (Lasix, Aldactone) -1500cc/day fluid restriction -Daily chemistry to trend serum sodium level *Cirrhosis w/ascites: -Hold diuretics (Lasix, Aldactone) -Midodrine / Propranolol -Outpatient GI follow up *Hypokalemia/Hypomagnesemia: -as needed replacement and f/u and trend *Hypothyroidism / HLD: Continue thyroid replacement therapy / statin *T2DM: -Hold Metformin , Insulin Lispro SSI *Psoriasis: Apremilast, Calcipotriene topical ,Halobetasol propionate topical *Obese: bmi 35. Lifestyle changes *Generalized weakness/deconditioning: -Physical therapy evaluation and treatment for placement planning *ppx: Lovenox (hold for paracentesis) Time Spent With Patient Time: Total time spent is greater than 50% in coordination of care (as documented) at patient's floor/unit and/or counseling patient: QUALITY Stroke Symptom Onset Unknown: No VTE Deep Vein Thrombosis/Pulmonary Embolism Present on Admission: No
[2022-04-10] MEDS ORDERED: FUROSEMIDE 40 MG/4 ML VIAL IV SCH (15:50)
[2022-04-10] MEDS: SIMVASTATIN 10 MG TABLET PO SCH (20:25)
[2022-04-10] MEDS: traZODone HCL 50 MG TABLET PO PRN (20:27)
[2022-04-11] MEDS: MELATONIN 3 MG TABLET PO PRN (00:07)
[2022-04-11] MEDS: 0.9 % SODIUM CHLORIDE 10 ML SYRINGE IV SCH ×3 (05:51→20:40)
--- NOTE | 2022-04-11 07:33 | Internal Med Progress Note ---
SUBJECTIVE Subjective Patient information: Note initiated : 04/11/22 at 7:21 am Service Date, if different from initiated Date: [] Patient: Maryam Cruz a 66 y/o F admitted on 04/07/22 for Chest Pain. Chief Complaint: [] Interval history: Ms. Cruz is a 66 year old F history of cirrhosis with ascites, type 2 diabetes mellitus, dyslipidemia, hypothyroidism, psoriasis, presenting with 2-day history of palpitations, chest pressure, and warm of the chest wall. In addition, she was told 2 days ago that her serum potassium level was low at 123, with a baseline of 132. As result, she was told to cut her diuretics Lasix into half from the 1 60-80 Mg daily. A repeat serum sodium level was 121 today in the ED. Cardiac rhythm was on and off in atrial fibrillation's from telemetry blood and twelve-lead EKG done in the ED showing normal sinus rhythm. First troponin not elevated at <0.02. Patient currently denies any palpitation or chest pressure. She is only complaining of mild general body weakness. Admission request was called for symptomatic hyponatremia. 04/08: Serum troponin <0.02, <0.01, <0.01. Serum sodium level 121-->129-->118-->118. Her serum potassium at magnesium was also low overnight, and we will replaced with potassium rider and magnesium rider, respectively. Dose of lidocaine with D5W, and this is probably the reason why her serum sodium level dropped despite normal saline infusions. This morning patient is feeling fine, strength improving. She denies any chest pain chest pressure warmth or palpitations. Continue normal saline infusion at 75 cc/h, and BMP every 6 hours to trend serum sodium level. Goals of corrections 8-10 points per 24 hours to avoid overcorrection with ICE SELLER consequences such as central pontine myelinolysis. 04/09: Serum sodium level 122 this morning. Patient is complaining of abdominal distension. She is complaining of nausea and poor appetite. She is complaining of general body weakness. Saline lock. 1500cc/day fluid restriction. Salt tab 1gm PO TID. BMP@1800. Goals of corrections 8-10 points per 24 hours to avoid overcorrection with ICE SELLER consequences such as central pontine myelinolysis. PT/INR, therapeutic paracentesis when available. 04/10: Serum sodium level last evening (04/09) was 123, this morning's level pending. Patient is complaining of abdominal distention's. She is coming of nausea. She denies any vomiting. She denies any abdominal pain. She is coming of general weakness, same degree relative to yesterday. Plan for therapeutic paracentesis this morning to relieve her ascites. Saline lock. 1500cc/day fluid restriction. Salt tab 1gm PO TID. continue to monitor for this morning's sodium level. Physical therapy evaluation and treatments for placement planning. 04/11 Patient feels she slept a little better. She had a paracentesis of 5 L y day. She still feels like there is some fluid in there. Blood pressures been soft. Planes of occasional cough but no shortness of breath. H&H low at 7.7. Monitor and follow-up. Monitor for bleeding. Thrombocytopenia 91. Hyponatremia improved but elevated potassium mild today. Review of Systems: denies headache/fever/chills/nausea/vomiting/chest or abdominal pain/dyspnea/diarrhea. Otherwise see above. Constitutional Vitals: Vital Signs Temp Pulse Resp BP Pulse Ox O2 Del Method O2 Flow Rate 97.5 F 78 13 89/56 97 0 04/11/22 03:13 04/11/22 06:20 04/11/22 06:20 04/11/22 06:20 04/11/22 06:20 04/11/22 06:20 04/10/22 10:09 Period Temp Pulse Resp BP Sys/Tan Pulse Ox O2 Del Method O2 Flow Rate Last 24 Hr 97.3 F-99.1 F 73-83 11-37 80-124/50-79 96-100 Room Air-Room Air 0 Intake and Output 04/10/22 04/11/22 04/11/22 19:59 03:59 11:59 Intake Total 490 400 Output Total 600 450 Balance -110 -50 Weight 85.91 kg Intake & Output: Intake & Output 04/10/22 04/11/22 04/11/22 19:59 03:59 11:59 Intake Total 490 400 Output Total 600 450 Balance -110 -50 Weight 85.91 kg Intake: Nourishment/Supplement quantity 240 (ml) Oral 250 400 Output: Void Amount 600 450 Other: Meal Dinner Percent of Meal Consumed 75% Feeding Ability Assist with Tray Set Up Nourishment/Supplement name Yamilex Urine Appearance Clear Clear Urine Color Dark Yellow Dark Yellow Urine Odor Strong Exam: General: Alert, Awake, No acute Distress, obese Eyes/N/T: EOMI, Head/Neck: neck supple, CV: RRR, No murmurs, Pulm: Clear b/l, no wheezing/rhonchi/rales Abd: soft, distended, nontender, +BS x4 Ext: no clubbing/cyanosis, trace b/l LE edema Neuro: Alert, no focal deficits, moves all extremities, Skin: warm/dry OBJ DATA Labs CBC & Chem 7: 04/11/22 05:38 04/11/22 05:38 Labs: Abnormal Lab Results 04/10/22 04/09/22 04/09/22 04:57 17:40 17:40 PT 15.3 H INR 1.2 H Sodium 124 L 123 L Chloride 91 L 89 L Carbon Dioxide Anion Gap BUN 39 H 38 H Glucose 175 H 130 H Calcium 04/09/22 04/09/22 04/08/22 05:49 00:10 18:22 PT INR Sodium 122 L 121 L 120 L Chloride 89 L 87 L 87 L Carbon Dioxide Anion Gap 7.0 L BUN 40 H 42 H 36 H Glucose 132 H 159 H 134 H Calcium 8.5 L 04/08/22 04/08/22 12:15 05:48 PT INR Sodium 118 L* 118 L* Chloride 86 L 89 L Carbon Dioxide 20 L Anion Gap 6.0 L BUN 27 H 24 H Glucose 151 H 140 H Calcium Meds: Medications Acetaminophen (Acetaminophen 325 Mg Tablet) 650 mg PO Q6HP PRN; Protocol PRN Reason: Per Pain Protocol/Fever > 101 Last Admin: 04/08/22 08:01 Dose: 650 mg Hydrocodone Bitart/Acetaminophen (Hydrocodone/Apap 5/325mg Tablet) 1 tab PO BIDP PRN; Protocol PRN Reason: migraine headache Last Admin: 04/08/22 13:24 Dose: 1 tab Albuterol Sulfate (Albuterol Sulfate 60 Puff Inhaler) 2 puff INH Q4HP PRN PRN Reason: asthma Albuterol/Ipratropium (Ipratropium/Albuterol 3 Ml Ampul.Neb) 3 ml NEB Q4HRT PRN PRN Reason: Wheezing Ascorbic Acid (Ascorbic Acid 500 Mg Tablet) 500 mg PO QDAY [facility] Last Admin: 04/10/22 10:20 Dose: 500 mg Dextrose (Dextrose 50% 50 Ml Vial) 0 ml IV UD PRN PRN Reason: Per Sliding Scale Diagnostic Test (Pha) (Accu-Chek 1 Each Strip) 1 each FS [facility] Last Admin: 04/10/22 20:38 Dose: 1 each Docusate Sodium (Docusate Sodium 100 Mg Capsule) 100 mg PO BID [facility] Last Admin: 04/10/22 20:25 Dose: 100 mg Enoxaparin Sodium (Enoxaparin 40 Mg/0.4 Ml Syringe) 40 mg SQ DAILY [facility] Last Admin: 04/10/22 10:11 Dose: Not Given Ferrous Sulfate (Ferrous Sulfate 325 Mg Tablet) 325 mg PO QDAY [facility] Last Admin: 04/10/22 10:19 Dose: 325 mg Furosemide (Furosemide 80 Mg Tablet) 80 mg PO QDAY [facility] Glucose (Dextrose 31 Gm Oral.Susp) 15 gm PO PRN PRN PRN Reason: Hypoglycemia Insulin Human Lispro (Insulin Lispro 1 Unit/0.01 Ml Unit) 0 unit SQ [facility]; Protocol Last Admin: 04/10/22 20:38 Dose: 2 units Lactulose (Lactulose 20 Gm/30 Ml Oral.Lise) 10 gm PO DAILYP PRN PRN Reason: Constipation Levothyroxine Sodium (Levothyroxine 50 Mcg Tablet) 50 mcg PO 0730 [facility] Last Admin: 04/10/22 07:38 Dose: 50 mcg Magnesium Oxide (Magnesium Oxide 400 Mg Tablet) 400 mg PO BID [facility] Last Admin: 04/10/22 20:25 Dose: 400 mg Melatonin (Melatonin 3 Mg Tablet) 3 mg PO HSP PRN PRN Reason: Insomnia Last Admin: 04/11/22 00:07 Dose: 3 mg Midodrine (Midodrine 5 Mg Tablet) 10 mg PO TID@0800,1200,1700 [facility] Last Admin: 04/10/22 17:32 Dose: 10 mg Ondansetron HCl (Ondansetron 4 Mg/2 Ml Vial) 4 mg IV Q4HP PRN; Protocol PRN Reason: Nausea And Vomiting Last Admin: 04/10/22 07:40 Dose: 4 mg Apremilast 30 Mg (Tablet) 1 dose PO BIDCC [facility] Last Admin: 04/10/22 17:32 Dose: 1 dose Promethazine HCl (Promethazine 25 Mg/Ml Vial) 12.5 mg IV Q4-6HP PRN PRN Reason: Nausea And Vomiting Last Admin: 04/09/22 23:38 Dose: 12.5 mg Propranolol HCl (Propranolol 40 Mg Tablet) 40 mg PO BID [facility] Last Admin: 04/10/22 20:25 Dose: 40 mg Senna (Sennosides 1 Tablet) 2 tab PO HSP PRN PRN Reason: Constipation Simvastatin (Simvastatin 10 Mg Tablet) 10 mg PO QHS [facility] Last Admin: 04/10/22 20:25 Dose: 10 mg Sodium Chloride (0.9 % Sodium Chloride 10 Ml Syringe) 10 ml IV Q8 [facility] Last Admin: 04/11/22 05:51 Dose: 10 ml Sodium Chloride (Sodium Chloride 1 Gm Tablet) 1 gm PO TID [facility] Last Admin: 04/10/22 20:25 Dose: 1 gm Trazodone HCl (Trazodone Hcl 50 Mg Tablet) 50 mg PO HSP PRN PRN Reason: Insomnia Last Admin: 04/10/22 20:27 Dose: 50 mg Vitamin B Complex (Vitamin B Complex 1 Capsule) 1 cap PO QDAY [facility] Last Admin: 04/10/22 10:20 Dose: 1 cap A/P Narrative A/P Narrative: Assessment and Plans: *Hyponatremia: poor prognosis in cirrhosis -Hold diuretics (Lasix, Aldactone) -1500cc/day fluid restriction -Daily chemistry to trend serum sodium level *Cirrhosis(nonalcoholic) w/ascites: -restart lasix, aldactone still held -cont Midodrine. Stop Propranolol d/t to refractory ascites and hypotension. did have an episode of afib @ [facility], if need BB will start a selective BB like lopressor -Outpatient GI follow up -low blood pressure, common in cirrhosis d/t decreased syst vasc resistance *Anemia: monitor H&H, monitor for bleeding, fobt, consider imaging. component of dilution as well *Hypokalemia/Hypomagnesemia: -as needed replacement and f/u and trend *Hypothyroidism / HLD: Continue thyroid replacement therapy / statin *T2DM: -Hold Metformin , Insulin Lispro SSI *Psoriasis: Apremilast, Calcipotriene topical ,Halobetasol propionate topical *Obese: bmi 34. Lifestyle changes *Generalized weakness/deconditioning: -Physical therapy evaluation and treatment for placement planning *ppx: Lovenox(hold today for anemia w/u) Code status Time Spent With Patient Time: Total time spent is greater than 50% in coordination of care (as documented) at patient's floor/unit and/or counseling patient: Total time spent with greater than 50% in coordination of care (as documented) at patient's floor/unit and/or counseling patient:: 35 - 50 minutes QUALITY Stroke Symptom Onset Unknown: No VTE Deep Vein Thrombosis/Pulmonary Embolism Present on Admission: No
[2022-04-11] MEDS: INSULIN LISPRO 1 UNIT/0.01 ML UNIT SQ SCH ×4 (07:44→21:44)
[2022-04-11] MEDS: MIDODRINE 5 MG TABLET PO SCH ×3 (08:07→17:52)
[2022-04-11] MEDS: LEVOTHYROXINE 50 MCG TABLET PO SCH (08:07)
[2022-04-11 08:40] LABS: Basophils # (Auto) 0.03 K/mcL (0.00-0.30); Basophils % (Auto) 0.6 % (0.0-2.0); Eosinophils # (Auto) 0.11 K/mcL (0.00-0.70); Eosinophils % (Auto) 2.1 % (0.0-7.0); Hematocrit 22.7 % (34.1-44.9); Hemoglobin 7.7 g/dL (11.2-15.7); Lymphocytes # (Auto) 0.44 K/mcL (1.50-4.80); Lymphocytes % (Auto) 8.5 % (15.5-49.0); Mean Cell Volume 91.2 fL (80.0-100.0); Mean Corpuscular HGB Conc 33.9 g/dL (31.0-36.0); Mean Platelet Volume 10.5 fL (8.8-12.5); Monocytes # (Auto) 0.51 K/mcL (0.10-0.90); Monocytes % (Auto) 9.8 % (1.0-12.0); Neutrophils % (Auto) 78.2 % (38.0-78.0); Platelet Count 91 K/mcL (140-440); RBC 2.49 M/mcL (3.59-5.38); Red Cell Distribution Width 15.6 % (11.5-14.5); WBC 5.2 K/mcL (4.5-11.0)
[2022-04-11] MEDS ORDERED: ALBUMIN HUMAN 12.5 GM/50 ML BAG IV ONE ×3 (08:45→14:03)
[2022-04-11] MEDS: SODIUM CHLORIDE 1 GM TABLET PO SCH (09:23)
[2022-04-11] MEDS: VITAMIN B COMPLEX 1 CAPSULE PO SCH (09:23)
[2022-04-11] MEDS: FERROUS SULFATE 325 MG TABLET PO SCH (09:23)
[2022-04-11] MEDS: DOCUSATE SODIUM 100 MG CAPSULE PO SCH (09:23)
[2022-04-11] MEDS: MAGNESIUM OXIDE 400 MG TABLET PO SCH ×2 (09:23→21:45)
[2022-04-11] MEDS: FUROSEMIDE 80 MG TABLET PO SCH (09:23)
[2022-04-11] MEDS: ASCORBIC ACID 500 MG TABLET PO SCH (09:23)
[2022-04-11] MEDS: ENOXAPARIN 40 MG/0.4 ML SYRINGE SQ SCH (09:24)
[2022-04-11 09:35] LABS: ALT/SGPT 19 U/L (<40); AST/SGOT 34 U/L (<32); Albumin 3.3 gm/dL (3.2-5.2); Albumin/Globulin Ratio 1.6 (1.0-2.3); Alkaline Phosphatase 55 U/L (39-117); Bilirubin,Direct < 0.2 mg/dL (0-0.3); Bilirubin,Total 0.5 mg/dL (0.1-1.0); Blood Urea Nitrogen 31 mg/dL (8-23); Calcium 9.2 mg/dL (8.6-10.4); Carbon Dioxide 25 mmol/L (22-30); Chloride 95 mmol/L (96-108); Glomerular Filtration Rate 78; Glucose 151 mg/dL (70-105); Lactate Dehydrogenase 151 U/L (135-225); Phosphorous 3.7 mg/dL (2.5-4.5); Triglycerides 52 mg/dL (<150); Uric Acid 4.8 mg/dL (2.5-8.0)
[2022-04-11] MEDS ORDERED: SODIUM POLYSTYRENE SULFONATE 15 GM/60 ML SUSPENSION PO ONE (10:06)
[2022-04-11] MEDS ORDERED: METOPROLOL TARTRATE 5 MG/5 ML VIAL IV PRN (10:06)
[2022-04-11] MEDS ORDERED: 0.9 % SODIUM CHLORIDE 250 ML IV SCH (11:45)
[2022-04-11] MEDS ORDERED: OCTREOTIDE ACETATE 100 MCG/ML VIAL IV ONE (12:30)
[2022-04-11] MEDS: PANTOPRAZOLE 40 MG VIAL IV SCH ×2 (12:37→21:45)
[2022-04-11] MEDS: cefTRIAXone 1 GM VIAL IV SCH (12:37)
[2022-04-11] MEDS: OCTREOTIDE ACETATE 500 MCG in 0.9 % SODIUM CHLORIDE 499.5 ML IV SCH (12:51)
[2022-04-11] MEDS ORDERED: KETAMINE 50 MG/ML ML IV PRN (13:21)
[2022-04-11] MEDS ORDERED: PROPOFOL 200 MG/20 ML VIAL IV SCH (13:30)
[2022-04-11] MEDS ORDERED: MIDAZOLAM 2 MG/2 ML VIAL IV SCH (13:30)
[2022-04-11] MEDS: SIMVASTATIN 10 MG TABLET PO SCH (21:45)
[2022-04-11] MEDS: traZODone HCL 50 MG TABLET PO PRN (21:47)
[2022-04-11 22:23] LABS: Hematocrit 28.7 % (34.1-44.9); Hemoglobin 9.7 g/dL (11.2-15.7)
[2022-04-12] MEDS: 0.9 % SODIUM CHLORIDE 10 ML SYRINGE IV SCH ×3 (06:10→21:17)
[2022-04-12 06:44] LABS: Basophils # (Auto) 0.04 K/mcL (0.00-0.30); Eosinophils # (Auto) 0.11 K/mcL (0.00-0.70); Eosinophils % (Auto) 2.9 % (0.0-7.0); Hematocrit 28.8 % (34.1-44.9); Hemoglobin 9.8 g/dL (11.2-15.7); Lymphocytes % (Auto) 10.5 % (15.5-49.0); Mean Cell Volume 89.4 fL (80.0-100.0); Mean Platelet Volume 10.5 fL (8.8-12.5); Monocytes # (Auto) 0.35 K/mcL (0.10-0.90); Monocytes % (Auto) 9.2 % (1.0-12.0); Neutrophils % (Auto) 76.1 % (38.0-78.0); Platelet Count 74 K/mcL (140-440); RBC 3.22 M/mcL (3.59-5.38); Red Cell Distribution Width 15.3 % (11.5-14.5); WBC 3.8 K/mcL (4.5-11.0)
[2022-04-12 06:59] LABS: INR 1.2 (0.9-1.1); Prothrombin Time 15.4 sec (11.9-14.5)
[2022-04-12 07:05] LABS: ALT/SGPT 19 U/L (<40); AST/SGOT 32 U/L (<32); Albumin 3.4 gm/dL (3.2-5.2); Albumin/Globulin Ratio 1.9 (1.0-2.3); Alkaline Phosphatase 48 U/L (39-117); Bilirubin,Direct 0.3 mg/dL (<0.3); Bilirubin,Total 1.4 mg/dL (0.1-1.0); Blood Urea Nitrogen 23 mg/dL (8-23); Calcium 8.6 mg/dL (8.6-10.4); Carbon Dioxide 24 mmol/L (22-30); Chloride 95 mmol/L (96-108); Globulin 1.8 gm/dL (2.2-3.7); Glomerular Filtration Rate 78; Glucose 139 mg/dL (70-105); Lactate Dehydrogenase 126 U/L (135-225); Phosphorous 4.1 mg/dL (2.5-4.5); Triglycerides 47 mg/dL (<150); Uric Acid 6.6 mg/dL (2.5-8.0)
[2022-04-12] MEDS: INSULIN LISPRO 1 UNIT/0.01 ML UNIT SQ SCH ×4 (07:41→21:25)
--- NOTE | 2022-04-12 07:56 | Internal Med Progress Note ---
SUBJECTIVE Subjective Patient information: Note initiated : 04/12/22 at 7:52 am Service Date, if different from initiated Date: [] Patient: Maryam Cruz a 66 y/o F admitted on 04/07/22 for Chest Pain. Chief Complaint: [] Interval history: Ms. Cruz is a 66 year old F history of cirrhosis with ascites, type 2 diabetes mellitus, dyslipidemia, hypothyroidism, psoriasis, presenting with 2-day history of palpitations, chest pressure, and warm of the chest wall. In addition, she was told 2 days ago that her serum potassium level was low at 123, with a baseline of 132. As result, she was told to cut her diuretics Lasix into half from the 1 60-80 Mg daily. A repeat serum sodium level was 121 today in the ED. Cardiac rhythm was on and off in atrial fibrillation's from telemetry blood and twelve-lead EKG done in the ED showing normal sinus rhythm. First troponin not elevated at <0.02. Patient currently denies any palpitation or chest pressure. She is only complaining of mild general body weakness. Admission request was called for symptomatic hyponatremia. 04/08: Serum troponin <0.02, <0.01, <0.01. Serum sodium level 121-->129-->118-->118. Her serum potassium at magnesium was also low overnight, and we will replaced with potassium rider and magnesium rider, respectively. Dose of lidocaine with D5W, and this is probably the reason why her serum sodium level dropped despite normal saline infusions. This morning patient is feeling fine, strength improving. She denies any chest pain chest pressure warmth or palpitations. Continue normal saline infusion at 75 cc/h, and BMP every 6 hours to trend serum sodium level. Goals of corrections 8-10 points per 24 hours to avoid overcorrection with FIG CAPRIFIER consequences such as central pontine myelinolysis. 04/09: Serum sodium level 122 this morning. Patient is complaining of abdominal distension. She is complaining of nausea and poor appetite. She is complaining of general body weakness. Saline lock. 1500cc/day fluid restriction. Salt tab 1gm PO TID. BMP@1800. Goals of corrections 8-10 points per 24 hours to avoid overcorrection with FIG CAPRIFIER consequences such as central pontine myelinolysis. PT/INR, therapeutic paracentesis when available. 04/10: Serum sodium level last evening (04/09) was 123, this morning's level pending. Patient is complaining of abdominal distention's. She is coming of nausea. She denies any vomiting. She denies any abdominal pain. She is coming of general weakness, same degree relative to yesterday. Plan for therapeutic paracentesis this morning to relieve her ascites. Saline lock. 1500cc/day fluid restriction. Salt tab 1gm PO TID. continue to monitor for this morning's sodium level. Physical therapy evaluation and treatments for placement planning. 04/11 Patient feels she slept a little better. She had a paracentesis of 5 L y esterday. She still feels like there is some fluid in there. Blood pressures been soft. Planes of occasional cough but no shortness of breath. H&H low at 7.7. Monitor and follow-up. Monitor for bleeding. Thrombocytopenia 91. Hyponatremia improved but elevated potassium mild today. 04/12 Patient feeling stronger today after getting blood yesterday. EGD yesterday which showed no active bleeding varices but 1 lesion where it looks like it had been bleeding. This varix was clipped. Hemoglobin stable today. No bleeding overnight. 1 reported dark stool that was formed last night at 8 PM. Hemoglobin 9.8. Thrombocytopenia 74,000. Hyponatremia 128. Review of Systems: denies headache/fever/chills/nausea/vomiting/chest or abdominal pain/dyspnea/diarrhea. Otherwise see above. Constitutional Vitals: Vital Signs Temp Pulse Resp BP Pulse Ox O2 Del Method O2 Flow Rate 98.8 F 66 16 102/76 100 5 04/12/22 04:02 04/12/22 04:02 04/12/22 05:56 04/12/22 05:56 04/12/22 05:56 04/12/22 05:56 04/11/22 14:09 Period Temp Pulse Resp BP Sys/Tan Pulse Ox O2 Del Method O2 Flow Rate Last 24 Hr 97.0 F-98.8 F 63-81 10-28 45-131/29-86 96-100 Nasal Cannula- Room Air 5-5 Intake and Output 04/11/22 04/12/22 04/12/22 19:59 03:59 11:59 Intake Total 1600 120 Output Total 950 350 300 Balance 650 -230 -300 Weight 83.37 kg Intake & Output: Intake & Output 12/13/22 12/14/22 12/14/22 19:59 03:59 11:59 Intake Total 1600 120 Output Total 950 350 300 Balance 650 -230 -300 Weight 83.37 kg Intake: Nourishment/Supplement quantity 240 (ml) IV 100 Oral 960 120 Blood Product 300 Output: Void Amount 950 350 300 Other: Meal Dinner Percent of Meal Consumed 100% Feeding Ability Independent Nourishment/Supplement name Yamilex Urine Appearance Clear Clear Clear Urine Color Yellow Yellow Dark Yellow Exam: General: Alert, Awake, No acute Distress, obese Eyes/N/T: EOMI, Head/Neck: neck supple, CV: RRR, No murmurs, Pulm: Clear b/l, no wheezing/rhonchi/rales Abd: soft, distended, nontender, +BS x4 Ext: no clubbing/cyanosis, trace b/l LE edema Neuro: Alert, no focal deficits, moves all extremities, Skin: warm/dry OBJ DATA Labs CBC & Chem 7: 04/12/22 05:48 04/12/22 05:47 Labs: Abnormal Lab Results 04/12/22 04/12/22 04/12/22 05:48 05:48 05:47 WBC 3.8 L RBC 3.22 L Hgb 9.8 L Hct 28.8 L RDW 15.3 H Plt Count 74 L Immature Gran % (Auto) Neut % (Auto) Lymph % (Auto) 10.5 L Lymph # (Auto) 0.40 L PT 15.4 H INR 1.2 H Sodium 128 L Potassium Chloride 95 L BUN Glucose 139 H Total Bilirubin 1.4 H Direct Bilirubin 0.3 H GGT 42 H AST 32 H Lactate Dehydrogenase 126 L Total Protein 5.2 L Globulin 1.8 L 04/11/22 04/11/22 04/11/22 21:29 05:38 05:38 WBC RBC 2.49 L Hgb 9.7 L 7.7 L Hct 28.7 L 22.7 L RDW 15.6 H Plt Count 91 L Immature Gran % (Auto) 0.8 H Neut % (Auto) 78.2 H Lymph % (Auto) 8.5 L Lymph # (Auto) 0.44 L PT INR Sodium 129 L Potassium 5.3 H Chloride 95 L BUN 31 H Glucose 151 H Total Bilirubin Direct Bilirubin GGT 51 H AST 34 H Lactate Dehydrogenase Total Protein 5.3 L Globulin 2.0 L 04/10/22 04/09/22 04/09/22 04:57 17:40 17:40 WBC RBC Hgb Hct RDW Plt Count Immature Gran % (Auto) Neut % (Auto) Lymph % (Auto) Lymph # (Auto) PT 15.3 H INR 1.2 H Sodium 124 L 123 L Potassium Chloride 91 L 89 L BUN 39 H 38 H Glucose 175 H 130 H Total Bilirubin Direct Bilirubin GGT AST Lactate Dehydrogenase Total Protein Globulin Meds: Medications Acetaminophen (Acetaminophen 325 Mg Tablet) 650 mg PO Q6HP PRN; Protocol PRN Reason: Per Pain Protocol/Fever > 101 Last Admin: 04/08/22 08:01 Dose: 650 mg Hydrocodone Bitart/Acetaminophen (Hydrocodone/Apap 5/325mg Tablet) 1 tab PO BIDP PRN; Protocol PRN Reason: migraine headache Last Admin: 04/08/22 13:24 Dose: 1 tab Albuterol Sulfate (Albuterol Sulfate 60 Puff Inhaler) 2 puff INH Q4HP PRN PRN Reason: asthma Albuterol/Ipratropium (Ipratropium/Albuterol 3 Ml Ampul.Neb) 3 ml NEB Q4HRT PRN PRN Reason: Wheezing Ceftriaxone Sodium (Ceftriaxone 1 Gm Vial) 1 gm IV Q24H [facility]; Protocol Stop: 04/17/22 12:01 Last Admin: 04/11/22 12:37 Dose: 1 gm Dextrose (Dextrose 50% 50 Ml Vial) 0 ml IV UD PRN PRN Reason: Per Sliding Scale Diagnostic Test (Pha) (Accu-Chek 1 Each Strip) 1 each FS ACHS [facility] Last Admin: 04/12/22 07:41 Dose: 1 each Furosemide (Furosemide 80 Mg Tablet) 80 mg PO QDAY [facility] Last Admin: 04/11/22 09:23 Dose: 80 mg Glucose (Dextrose 31 Gm Oral.Susp) 15 gm PO PRN PRN PRN Reason: Hypoglycemia Octreotide Acetate 500 mcg/ (Sodium Chloride) 500 mls @ 25 mls/hr IV Q20H [facility]; Protocol Last Admin: 04/11/22 12:51 Dose: 25 mcg/hr, 25 mls/hr Insulin Human Lispro (Insulin Lispro 1 Unit/0.01 Ml Unit) 0 unit SQ ACHS [facility]; Protocol Last Admin: 04/12/22 07:41 Dose: Not Given Lactulose (Lactulose 20 Gm/30 Ml Oral.Lise) 10 gm PO DAILYP PRN PRN Reason: Constipation Levothyroxine Sodium (Levothyroxine 50 Mcg Tablet) 50 mcg PO 0730 [facility] Last Admin: 04/11/22 08:07 Dose: 50 mcg Magnesium Oxide (Magnesium Oxide 400 Mg Tablet) 400 mg PO BID [facility] Last Admin: 04/11/22 21:45 Dose: 400 mg Melatonin (Melatonin 3 Mg Tablet) 3 mg PO HSP PRN PRN Reason: Insomnia Last Admin: 04/11/22 00:07 Dose: 3 mg Metoprolol Tartrate (Metoprolol Tartrate 5 Mg/5 Ml Vial) 5 mg IV Q2HP PRN PRN Reason: Tachyarrhythmias HR>110 Midodrine (Midodrine 5 Mg Tablet) 10 mg PO TID@0800,1200,1700 [facility] Last Admin: 04/11/22 17:52 Dose: 10 mg Ondansetron HCl (Ondansetron 4 Mg/2 Ml Vial) 4 mg IV Q4HP PRN; Protocol PRN Reason: Nausea And Vomiting Last Admin: 04/10/22 07:40 Dose: 4 mg Pantoprazole Sodium (Pantoprazole 40 Mg Vial) 40 mg IV BID [facility] Last Admin: 04/11/22 21:45 Dose: 40 mg [facility]ast [facility] ([facility]t) [facility] Last Admin: 04/11/22 17:52 Dose: 1 dose Promethazine HCl (Promethazine 25 Mg/Ml Vial) 12.5 mg IV Q4-6HP PRN PRN Reason: Nausea And Vomiting Last Admin: 04/09/22 23:38 Dose: 12.5 mg Senna (Sennosides 1 Tablet) 2 tab PO HSP PRN PRN Reason: Constipation Simvastatin (Simvastatin 10 Mg Tablet) 10 mg PO QHS [facility] Last Admin: 04/11/22 21:45 Dose: 10 mg Sodium Chloride (0.9 % Sodium Chloride 10 Ml Syringe) 10 ml IV Q8 [facility] Last Admin: 04/12/22 06:10 Dose: Not Given Trazodone HCl (Trazodone Hcl 50 Mg Tablet) 50 mg PO HSP PRN PRN Reason: Insomnia Last Admin: 04/11/22 21:47 Dose: 50 mg A/P Narrative A/P Narrative: Assessment and Plans: *Hyponatremia: poor prognosis in cirrhosis -1500cc/day fluid restriction -Daily chemistry to trend serum sodium level *Cirrhosis(nonalcoholic) w/ascites: -thrombocytopenia/hyperbilirubinemia/ -restarted lasix, aldactone still held -cont Midodrine. Propranolol held d/t to hypotensino and refractory ascites; [facility], if need BB will start a selective BB like lopressor -Outpatient GI follow up -low blood pressure, common in cirrhosis d/t decreased syst vasc resistance but BB contributing *GI bleed likely upper: EGD with varices no active bleeding but one lesion showing stigmata of bleeding>clipped -d/c octreotide today -ppx abx -consulted Dr. Meng *acute blood loss Anemia: monitor H&H, component of dilution as well -2PRBC (04/11) with good response *Hypokalemia/Hypomagnesemia: -as needed replacement and f/u and trend *Hypothyroidism / HLD: Continue thyroid replacement therapy / statin *T2DM: -Hold Metformin , Insulin Lispro SSI *Psoriasis: Apremilast, Calcipotriene topical ,Halobetasol propionate topical *Obese: bmi 34. Lifestyle changes *Generalized weakness/deconditioning: -Physical therapy evaluation and treatment for placement planning *ppx: Lovenox(hold today for anemia w/u), SCD / ppi Code status Time Spent With Patient Time: Total time spent is greater than 50% in coordination of care (as documented) at patient's floor/unit and/or counseling patient: Total time spent with greater than 50% in coordination of care (as documented) at patient's floor/unit and/or counseling patient:: 35 - 50 minutes QUALITY Stroke Symptom Onset Unknown: No VTE Deep Vein Thrombosis/Pulmonary Embolism Present on Admission: No
[2022-04-12] MEDS: LEVOTHYROXINE 50 MCG TABLET PO SCH (08:31)
[2022-04-12] MEDS: MIDODRINE 5 MG TABLET PO SCH ×3 (08:31→16:50)
[2022-04-12] MEDS: OCTREOTIDE ACETATE 500 MCG in 0.9 % SODIUM CHLORIDE 499.5 ML IV SCH (08:33)
[2022-04-12] MEDS ORDERED: ENOXAPARIN 40 MG/0.4 ML SYRINGE SQ SCH (09:00)
[2022-04-12] MEDS ORDERED: ALBUMIN HUMAN 12.5 GM/50 ML BAG IV ONE (09:00)
[2022-04-12] MEDS: PANTOPRAZOLE 40 MG VIAL IV SCH ×2 (09:23→21:16)
[2022-04-12] MEDS: cefTRIAXone 1 GM VIAL IV SCH (09:23)
[2022-04-12] MEDS: FUROSEMIDE 80 MG TABLET PO SCH (09:23)
[2022-04-12] MEDS: MAGNESIUM OXIDE 400 MG TABLET PO SCH ×2 (09:23→21:16)
[2022-04-12] MEDS ORDERED: METOPROLOL SUCCINATE 25 MG TAB.XL.24H PO ONE (12:04)
--- NOTE | 2022-04-12 12:04 | Discharge Summary ---
Discharge Provider Provider IMPORTANT FOLLOW-UP INFORMATION FOR PCP: Reduced dose of propranolol due to hypotension, refractory ascites, and hyponatremia Patient information: Note initiated : 04/12/22 at 12:01 pm Service Date, if different from initiated Date: [] Patient: Maryam Cruz 66 y/o F admitted on 04/07/22 for Chest Pain. Chief Complaint: [] Date of admission: 04/07/22 14:57 Discharge date: 04/15/22 Primary care physician: Frandy Self DO Consults: 04/07/22 Consult to Physician [CONS] Stat Comment: Consulting Provider: Leon Cutler Reason For Exam: Physician to Consult 04/11/22 11:42 Consult to Physician [CONS] Routine Comment: gi bleed Consulting Provider: Elio Mcnamara Reason For Exam: Physician to Consult 04/11/22 13:06 Consult to Physician [CONS] Routine Comment: gi bleed Consulting Provider: Maurice Meng Reason For Exam: Physician to Consult COURSE Hospital Course Hospital course: Interval history: Ms. Cruz is a 66 year old F history of cirrhosis with ascites, type 2 diabetes mellitus, dyslipidemia, hypothyroidism, psoriasis, presenting with 2-day history of palpitations, chest pressure, and warm of the chest wall. In addit ion, she was told 2 days ago that her serum potassium level was low at 123, with a baseline of 132. As result, she was told to cut her diuretics Lasix into half from the 1 60-80 Mg daily. A repeat serum sodium level was 121 today in the ED. Cardiac rhythm was on and off in atrial fibrillation's from telemetry blood and twelve-lead EKG done in the ED showing normal sinus rhythm. First troponin not elevated at <0.02. Patient currently denies any palpitation or chest pressure. She is only complaining of mild general body weakness. Admission request was called for symptomatic hyponatremia. 04/08: Serum troponin <0.02, <0.01, <0.01. Serum sodium level 121-->129-->118-->118. Her serum potassium at magnesium was also low overnight, and we will replaced with potassium rider and magnesium rider, respectively. Dose of lidocaine with D5W, and this is probably the reason why her serum sodium level dropped despite normal saline infusions. This morning patient is feeling fine, strength im proving. She denies any chest pain chest pressure warmth or palpitations. Continue normal saline infusion at 75 cc/h, and BMP every 6 hours to trend serum sodium level. Goals of corrections 8-10 points per 24 hours to avoid overcorrection with ALL ROUND LOGGER consequences such as central pontine myelinolysis. 04/09: Serum sodium level 122 this morning. Patient is complaining of abdominal distension. She is complaining of nausea and poor appetite. She is complaining of general body weakness. Saline lock. 1500cc/day fluid restriction. Salt tab 1gm PO TID. BMP@1800. Goals of corrections 8-10 points per 24 hours to avoid overcorrection with ALL ROUND LOGGER consequences such as central pontine myelinolysis. PT/INR, therapeutic paracentesis when available. 04/10: Serum sodium level last evening (04/09) was 123, this morning's level pending. Patient is complaining of abdominal distention's. She is coming of nausea. She denies any vomiting. She denies any abdominal pain. She is coming of general weakness, same degree relative to yesterday. Plan for therapeutic paracentesis this morning to relieve her ascites. Saline lock. 1500cc/day fluid restriction. Salt tab 1gm PO TID. continue to monitor for this morning's sodium level. Physical therapy evaluation and treatments for placement planning. 04/11 Patient feels she slept a little better. She had a paracentesis of 5 L yesterday. She still feels like there is some fluid in there. Blood pressures been soft. Planes of occasional cough but no shortness of breath. H&H low at 7.7. Monitor and follow-up. Monitor for bleeding. Thrombocytopenia 91. Hyponatremia improved but elevated potassium mild today. 04/12 Patient feeling stronger today after getting blood yesterday. EGD yesterday which showed no active bleeding varices but 1 lesion where it looks like it had been bleeding. This varix was clipped. Hemoglobin stable today. No bleeding overnight. 1 reported dark stool that was formed last night at 8 PM. Hemoglobin 9.8. Thrombocytopenia 74,000. Hyponatremia 128. 04/13 Patient complains of abdominal distention and swelling and discomfort again. Sodium decreased. No bloody stools overnight. Likely paracentesis before discharge. Patient went into A. fib RVR with rates 130s 140s. Lopressor given x3 without response. Amiodarone bolus and drip started 04/14 Had a little nausea last night but better today. No bowel movements. Sodium decreased. That is post paracentesis yesterday 5 L. Hypokalemia. 04/15 No overnight event or new complaints. CBC stable. Sodium stable. No further bleeding. Stable for discharge follow-up closely with GI and hepatology. Assessment and Plans: *Hyponatremia: poor prognosis in cirrhosis *Cirrhosis(nonalcoholic) w/refractory ascites: -thrombocytopenia/hyperbilirubinemia/ -cont Midodrine. Propranolol dose reduced d/t to hypotension, hyponatremia and refractory ascites -pt did have an episode of afib @ [facility], if need BB consider cardioselective BB or decrease dose of propranolol -pt physiologic state such that one treatment counter productive to other dz state. propranolol beneficial for bleeding varices & afib but worsens hypotension > ascites and hyponatremia -Outpatient GI follow up and hepatology *GI bleed likely upper: EGD with varices no active bleeding but stigmata of bleeding > banded x3 -Outpatient GI follow up and hepatology *acute blood loss Anemia: monitor H&H, component of dilution as well -2PRBC (04/11) with good response *Afib RVR: converted back to sinus *Hypokalemia/Hypomagnesemia: *Hypothyroidism / HLD: *T2DM: *Psoriasis: *Obese: bmi 34 *Generalized weakness/deconditioning: Discharge diagnosis: Acute kidney injury with ascites upper GI bleed electrolyte light disorder Secondary discharge diagnosis: A. fib RVR acute blood loss anemia hypothyroidism diabetes hyperlipidemia psoriasis obesity weakness Time Spent with Patient Time attestation: Total time spent providing and/or coordinating discharge services: Time spent: Greater than 30 minutes EXAM Constitutional Vitals: Temp Pulse Resp BP Pulse Ox O2 Del Method O2 Flow Rate 97.1 F 75 17 104/69 100 5 04/12/22 08:00 04/12/22 10:00 04/12/22 10:00 04/12/22 10:00 04/12/22 10:00 04/12/22 10:00 04/11/22 14:09 Discharge Data Data Completed and Pending Labs on day of discharge: Labs from last 24 hours 04/12/22 04/12/22 04/12/22 05:48 05:48 05:47 WBC 3.8 L RBC 3.22 L Hgb 9.8 L Hct 28.8 L MCV 89.4 MCH 30.4 MCHC 34.0 RDW 15.3 H Plt Count 74 L MPV 10.5 Immature Gran % (Auto) 0.3 Neut % (Auto) 76.1 Lymph % (Auto) 10.5 L [place] % (Auto) 9.2 Eos % (Auto) 2.9 Baso % (Auto) 1.0 Lymph # (Auto) 0.40 L [place] # (Auto) 0.35 Eos # (Auto) 0.11 Baso # (Auto) 0.04 Immature Gran # 0.01 Absolute Neutrophils 2.90 PT 15.4 H INR 1.2 H Sodium 128 L Potassium 4.4 Chloride 95 L Carbon Dioxide 24 Anion Gap 9.0 BUN 23 Creatinine 0.8 GFR Calculation 78 Glucose 139 H Uric Acid 6.6 Calcium 8.6 Phosphorus 4.1 Magnesium 1.7 Total Bilirubin 1.4 H Direct Bilirubin 0.3 H GGT 42 H AST 32 H ALT 19 Alkaline Phosphatase 48 Lactate Dehydrogenase 126 L Total Protein 5.2 L Albumin 3.4 Globulin 1.8 L Albumin/Globulin Ratio 1.9 Triglycerides 47 04/11/22 21:29 WBC RBC Hgb 9.7 L Hct 28.7 L MCV MCH MCHC RDW Plt Count MPV Immature Gran % (Auto) Neut % (Auto) Lymph % (Auto) [place] % (Auto) Eos % (Auto) Baso % (Auto) Lymph # (Auto) [place] # (Auto) Eos # (Auto) Baso # (Auto) Immature Gran # Absolute Neutrophils PT INR Sodium Potassium Chloride Carbon Dioxide Anion Gap BUN Creatinine GFR Calculation Glucose Uric Acid Calcium Phosphorus Magnesium Total Bilirubin Direct Bilirubin GGT AST ALT Alkaline Phosphatase Lactate Dehydrogenase Total Protein Albumin Globulin Albumin/Globulin Ratio Triglycerides Discharge Plan Patient/Caregiver Discharge Instructions Activity: increase activity as tolerated Diet: Regular Diet Prescriptions: New propranolol 20 mg tablet 10 mg PO BID Qty: 30 0RF Continued (DME) blood sugar diagnostic, drum [Accu-Chek Compact Test] strip See Dose Instructions .ROUTE .MEDSUPPLY Qty: 102 3RF Dose Instruction: As directed Rx Instructions: Check blood sugars once daily, Dx: E11.9 magnesium oxide 400 mg tablet 400 mg PO BID Qty: 180 3RF (DME) lancets [OneTouch Delica Lancets] 33 gauge misc See Dose Instructions .ROUTE .MEDSUPPLY Qty: 100 3RF Dose Instruction: As directed Rx Instructions: Test once daily apremilast 30 mg tablet 30 mg PO BID Qty: 180 4RF pravastatin 20 mg tablet 20 mg PO QHS Qty: 90 3RF levothyroxine 50 mcg tablet 50 mcg PO QDAY Qty: 90 3RF metformin 850 mg tablet 850 mg PO QDAY Qty: 90 3RF vitamin B complex tablet 1 tab PO QDAY ferrous sulfate 325 mg (65 mg iron) tablet 325 mg PO QDAY ascorbic acid (vitamin C) 500 mg tablet 500 mg PO QDAY (DME) OneTouch Verio test strips Strip See Dose Instructions .ROUTE .MEDSUPPLY Qty: 100 3RF Dose Instruction: As directed Rx Instructions: Test once daily calcipotriene 0.005 % cream 1 applic topical BID PRN (Reason: psoriasis) Qty: 120 1RF Rx Instructions: rub in gently and completely halobetasol propionate 0.05 % ointment 1 applic topical BID PRN (Reason: psoriasis) Qty: 50 1RF albuterol sulfate 90 mcg/actuation HFA aerosol inhaler 2 puff INHALATION Q4H PRN (Reason: asthma) Qty: 8.5 1RF hydrocodone-acetaminophen 5-325 mg tablet 1 tab PO BID PRN (Reason: migraine headache) Qty: 14 0RF midodrine 10 mg tablet 10 mg PO TID Qty: 90 2RF Rx Instructions: do not give last dose of day after 6PM or within 4 hrs of bedtime spironolactone 100 mg Tablet 200 mg PO QAM furosemide 80 mg Tablet 80 mg PO QAM Discontinued propranolol 40 mg tablet 40 mg PO BID Follow Up Plan Follow up with: Frandy Self DO [Primary Care Provider] - Frandy Saunders MD [Physician] - 04/17/22 10:45 am (Please arrive at 10:30 am) Patient Disposition: Home Health Service Prognosis: Undetermined Overall status at discharge: patient is progressing back to baseline Discharge Orders: Discharge Order (Routine); Ordered 04/15/22 Ordered By: Yanick DUARTE VTE Deep Vein Thrombosis/Pulmonary Embolism Present on Admission: No
[2022-04-12] MEDS: ACETAMINOPHEN 325 MG TABLET PO PRN (21:14)
[2022-04-12] MEDS: SIMVASTATIN 10 MG TABLET PO SCH (21:15)
[2022-04-12] MEDS: traZODone HCL 50 MG TABLET PO PRN (21:16)
[2022-04-13] MEDS: 0.9 % SODIUM CHLORIDE 10 ML SYRINGE IV SCH ×3 (05:35→22:36)
[2022-04-13 07:01] LABS: Blood Urea Nitrogen 22 mg/dL (8-23); Calcium 8.3 mg/dL (8.6-10.4); Carbon Dioxide 24 mmol/L (22-30); Chloride 90 mmol/L (96-108); Glomerular Filtration Rate 91; Glucose 141 mg/dL (70-105)
--- NOTE | 2022-04-13 07:34 | Internal Med Progress Note ---
SUBJECTIVE Subjective Patient information: Note initiated : 04/13/22 at 7:32 am Service Date, if different from initiated Date: [] Patient: Maryam Cruz a 66 y/o F admitted on 04/07/22 for Chest Pain. Chief Complaint: [] Interval history: Ms. Cruz is a 66 year old F history of cirrhosis with ascites, type 2 diabetes mellitus, dyslipidemia, hypothyroidism, psoriasis, presenting with 2-day history of palpitations, chest pressure, and warm of the chest wall. In addition, she was told 2 days ago that her serum potassium level was low at 123, with a baseline of 132. As result, she was told to cut her diuretics Lasix into half from the 1 60-80 Mg daily. A repeat serum sodium level was 121 today in the ED. Cardiac rhythm was on and off in atrial fibrillation's from telemetry blood and twelve-lead EKG done in the ED showing normal sinus rhythm. First troponin not elevated at <0.02. Patient currently denies any palpitation or chest pressure. She is only complaining of mild general body weakness. Admission request was called for symptomatic hyponatremia. 04/08: Serum troponin <0.02, <0.01, <0.01. Serum sodium level 121-->129-->118-->118. Her serum potassium at magnesium was also low overnight, and we will replaced with potassium rider and magnesium rider, respectively. Dose of lidocaine with D5W, and this is probably the reason why her serum sodium level dropped despite normal saline infusions. This morning patient is feeling fine, strength improving. She denies any chest pain chest pressure warmth or palpitations. Continue normal saline infusion at 75 cc/h, and BMP every 6 hours to trend serum sodium level. Goals of corrections 8-10 points per 24 hours to avoid overcorrection with UNISAW OPERATOR consequences such as central pontine myelinolysis. 04/09: Serum sodium level 122 this morning. Patient is complaining of abdominal distension. She is complaining of nausea and poor appetite. She is complaining of general body weakness. Saline lock. 1500cc/day fluid restriction. Salt tab 1gm PO TID. BMP@1800. Goals of corrections 8-10 points per 24 hours to avoid overcorrection with UNISAW OPERATOR consequences such as central pontine myelinolysis. PT/INR, therapeutic paracentesis when available. 04/10: Serum sodium level last evening (04/09) was 123, this morning's level pending. Patient is complaining of abdominal distention's. She is coming of nausea. She denies any vomiting. She denies any abdominal pain. She is coming of general weakness, same degree relative to yesterday. Plan for therapeutic paracentesis this morning to relieve her ascites. Saline lock. 1500cc/day fluid restriction. Salt tab 1gm PO TID. continue to monitor for this morning's sodium level. Physical therapy evaluation and treatments for placement planning. 04/11 Patient feels she slept a little better. She had a paracentesis of 5 L y esterday. She still feels like there is some fluid in there. Blood pressures been soft. Planes of occasional cough but no shortness of breath. H&H low at 7.7. Monitor and follow-up. Monitor for bleeding. Thrombocytopenia 91. Hyponatremia improved but elevated potassium mild today. 04/12 Patient feeling stronger today after getting blood yesterday. EGD yesterday which showed no active bleeding varices but 1 lesion where it looks like it had been bleeding. This varix was clipped. Hemoglobin stable today. No bleeding overnight. 1 reported dark stool that was formed last night at 8 PM. Hemoglobin 9.8. Thrombocytopenia 74,000. Hyponatremia 128. 04/13 Patient complains of abdominal distention and swelling and discomfort again. Sodium decreased. No bloody stools overnight. Likely paracentesis before discharge. Review of Systems: denies headache/fever/chills/nausea/vomiting/chest pain/dyspnea/diarrhea. Otherwise see above. Constitutional Vitals: Vital Signs Temp Pulse Resp BP Pulse Ox O2 Del Method O2 Flow Rate 97.1 F 67 13 101/66 97 5 04/13/22 07:10 04/13/22 06:16 04/13/22 06:16 04/13/22 06:01 04/13/22 06:16 04/13/22 04:00 04/11/22 14:09 Period Temp Pulse Resp BP Sys/Tan Pulse Ox O2 Del Method O2 Flow Rate Last 24 Hr 97.1 F-98.3 F 67-90 9-19 93-140/58-102 95-100 Room Air-Room Air Intake and Output 12/14/22 12/15/22 12/15/22 19:59 03:59 11:59 Intake Total 1710 240 120 Output Total 1425 400 Balance 285 -160 120 Weight 83.552 kg Intake & Output: Intake & Output 04/12/22 04/13/22 04/13/22 19:59 03:59 11:59 Intake Total 1710 240 120 Output Total 1425 400 Balance 285 -160 120 Weight 83.552 kg Intake: Nourishment/Supplement quantity 240 (ml) Oral 1210 120 GI Tube Flush 500 Output: Void Amount 1425 400 Other: Meal Dinner Nourishment/Supplement Percent of Meal Consumed 75% Feeding Ability Independent Urine Appearance Clear Clear Urine Color Yellow Bright Yellow Exam: General: Alert, Awake, No acute Distress, obese Eyes/N/T: EOMI, Head/Neck: neck supple, CV: RRR, No murmurs, Pulm: Clear b/l, no wheezing/rhonchi/rales Abd: soft, more distended today, +BS x4 Ext: no clubbing/cyanosis, trace b/l LE edema Neuro: Alert, no focal deficits, moves all extremities, Skin: warm/dry OBJ DATA Labs CBC & Chem 7: 04/12/22 05:48 04/13/22 05:34 Labs: Abnormal Lab Results 04/13/22 04/12/22 04/12/22 05:34 05:48 05:48 WBC 3.8 L RBC 3.22 L Hgb 9.8 L Hct 28.8 L RDW 15.3 H Plt Count 74 L Immature Gran % (Auto) Neut % (Auto) Lymph % (Auto) 10.5 L Lymph # (Auto) 0.40 L PT 15.4 H INR 1.2 H Sodium 125 L Potassium Chloride 90 L BUN Glucose 141 H Calcium 8.3 L Total Bilirubin Direct Bilirubin GGT AST Lactate Dehydrogenase Total Protein Globulin 04/12/22 04/11/22 04/11/22 05:47 21:29 05:38 WBC RBC 2.49 L Hgb 9.7 L 7.7 L Hct 28.7 L 22.7 L RDW 15.6 H Plt Count 91 L Immature Gran % (Auto) 0.8 H Neut % (Auto) 78.2 H Lymph % (Auto) 8.5 L Lymph # (Auto) 0.44 L PT INR Sodium 128 L Potassium Chloride 95 L BUN Glucose 139 H Calcium Total Bilirubin 1.4 H Direct Bilirubin 0.3 H GGT 42 H AST 32 H Lactate Dehydrogenase 126 L Total Protein 5.2 L Globulin 1.8 L 04/11/22 04/10/22 05:38 04:57 WBC RBC Hgb Hct RDW Plt Count Immature Gran % (Auto) Neut % (Auto) Lymph % (Auto) Lymph # (Auto) PT INR Sodium 129 L 124 L Potassium 5.3 H Chloride 95 L 91 L BUN 31 H 39 H Glucose 151 H 175 H Calcium Total Bilirubin Direct Bilirubin GGT 51 H AST 34 H Lactate Dehydrogenase Total Protein 5.3 L Globulin 2.0 L Meds: Medications Acetaminophen (Acetaminophen 325 Mg Tablet) 650 mg PO Q6HP PRN; Protocol PRN Reason: Per Pain Protocol/Fever > 101 Last Admin: 04/12/22 21:14 Dose: 650 mg Hydrocodone Bitart/Acetaminophen (Hydrocodone/Apap 5/325mg Tablet) 1 tab PO BIDP PRN; Protocol PRN Reason: migraine headache Last Admin: 04/08/22 13:24 Dose: 1 tab Albuterol Sulfate (Albuterol Sulfate 60 Puff Inhaler) 2 puff INH Q4HP PRN PRN Reason: asthma Albuterol/Ipratropium (Ipratropium/Albuterol 3 Ml Ampul.Neb) 3 ml NEB Q4HRT PRN PRN Reason: Wheezing Ceftriaxone Sodium (Ceftriaxone 1 Gm Vial) 1 gm IV Q24H [facility]; Protocol Stop: 04/17/22 12:01 Last Admin: 04/12/22 09:23 Dose: 1 gm Dextrose (Dextrose 50% 50 Ml Vial) 0 ml IV UD PRN PRN Reason: Per Sliding Scale Diagnostic Test (Pha) (Accu-Chek 1 Each Strip) 1 each FS ACHS [facility] Last Admin: 04/13/22 07:22 Dose: 1 each Furosemide (Furosemide 80 Mg Tablet) 80 mg PO QDAY SHARRI Last Admin: 04/12/22 09:23 Dose: 80 mg Glucose (Dextrose 31 Gm Oral.Susp) 15 gm PO PRN PRN PRN Reason: Hypoglycemia Insulin Human Lispro (Insulin Lispro 1 Unit/0.01 Ml Unit) 0 unit SQ ACHS [facility]; Protocol Last Admin: 04/12/22 21:25 Dose: 1 units Lactulose (Lactulose 20 Gm/30 Ml Oral.Lise) 10 gm PO DAILYP PRN PRN Reason: Constipation Levothyroxine Sodium (Levothyroxine 50 Mcg Tablet) 50 mcg PO 0730 [facility] Last Admin: 04/12/22 08:31 Dose: 50 mcg Magnesium Oxide (Magnesium Oxide 400 Mg Tablet) 400 mg PO BID [facility] Last Admin: 04/12/22 21:16 Dose: 400 mg Melatonin (Melatonin 3 Mg Tablet) 3 mg PO HSP PRN PRN Reason: Insomnia Last Admin: 04/11/22 00:07 Dose: 3 mg Metoprolol Tartrate (Metoprolol Tartrate 5 Mg/5 Ml Vial) 5 mg IV Q2HP PRN PRN Reason: Tachyarrhythmias HR>110 Midodrine (Midodrine 5 Mg Tablet) 10 mg PO TID@0800,1200,1700 [facility] Last Admin: 04/12/22 16:50 Dose: 10 mg Ondansetron HCl (Ondansetron 4 Mg/2 Ml Vial) 4 mg IV Q4HP PRN; Protocol PRN Reason: Nausea And Vomiting Last Admin: 04/10/22 07:40 Dose: 4 mg Pantoprazole Sodium (Pantoprazole 40 Mg Vial) 40 mg IV BID [facility] Last Admin: 04/12/22 21:16 Dose: 40 mg Apremilast 30 Mg (Tablet) 1 dose PO BIDCC [facility] Last Admin: 04/12/22 16:50 Dose: 1 dose Promethazine HCl (Promethazine 25 Mg/Ml Vial) 12.5 mg IV Q4-6HP PRN PRN Reason: Nausea And Vomiting Last Admin: 04/09/22 23:38 Dose: 12.5 mg Senna (Sennosides 1 Tablet) 2 tab PO HSP PRN PRN Reason: Constipation Simvastatin (Simvastatin 10 Mg Tablet) 10 mg PO QHS [facility] Last Admin: 04/12/22 21:15 Dose: 10 mg Sodium Chloride (0.9 % Sodium Chloride 10 Ml Syringe) 10 ml IV Q8 [facility] Last Admin: 04/13/22 05:35 Dose: 10 ml Trazodone HCl (Trazodone Hcl 50 Mg Tablet) 50 mg PO HSP PRN PRN Reason: Insomnia Last Admin: 04/12/22 21:16 Dose: 50 mg A/P Narrative A/P Narrative: Assessment and Plans: *Hyponatremia: poor prognosis in cirrhosis -Daily chemistry to trend serum sodium level -worsened -fluid restrict *Cirrhosis(nonalcoholic) w/ascites: -thrombocytopenia/hyperbilirubinemia/ -restarted lasix, aldactone still held -cont Midodrine. Propranolol held d/t to hypotension, hyponatremia and refractory ascites -pt did have an episode of afib @ [facility], if need BB will start a selective BB like lopressor -Outpatient GI follow up and hepatology -low blood pressure, common in cirrhosis d/t decreased syst vasc resistance but BB contributing -repeat paracentesis *GI bleed likely upper: EGD with varices no active bleeding but one lesion showing stigmata of bleeding>clipped -ppx abx -consulted Dr. Meng *acute blood loss Anemia: monitor H&H, component of dilution as well -2PRBC (04/11) with good response *Hypokalemia/Hypomagnesemia: -as needed replacement and f/u and trend *Hypothyroidism / HLD: Continue thyroid replacement therapy / statin *T2DM: -Hold Metformin , Insulin Lispro SSI *Psoriasis: Apremilast, Calcipotriene topical ,Halobetasol propionate topical *Obese: bmi 34. Lifestyle changes *Generalized weakness/deconditioning: -Physical therapy evaluation and treatment for placement planning *ppx: Lovenox(hold today for anemia w/u), SCD / ppi Code status Time Spent With Patient Time: Total time spent is greater than 50% in coordination of care (as documented) at patient's floor/unit and/or counseling patient: Total time spent with greater than 50% in coordination of care (as documented) at patient's floor/unit and/or counseling patient:: 35 - 50 minutes QUALITY Stroke Symptom Onset Unknown: No VTE Deep Vein Thrombosis/Pulmonary Embolism Present on Admission: No
[2022-04-13] MEDS ORDERED: FUROSEMIDE 100 MG/10 ML VIAL IV ONE (07:35)
[2022-04-13] MEDS ORDERED: ALBUMIN HUMAN 12.5 GM/50 ML BAG IV ONE (07:35)
[2022-04-13] MEDS: MIDODRINE 5 MG TABLET PO SCH ×3 (07:51→16:24)
[2022-04-13] MEDS: LEVOTHYROXINE 50 MCG TABLET PO SCH (07:51)
[2022-04-13] MEDS: INSULIN LISPRO 1 UNIT/0.01 ML UNIT SQ SCH ×4 (07:52→20:39)
[2022-04-13] MEDS: PANTOPRAZOLE 40 MG VIAL IV SCH ×2 (09:00→20:39)
[2022-04-13] MEDS: MAGNESIUM OXIDE 400 MG TABLET PO SCH ×2 (09:00→20:39)
[2022-04-13] MEDS: cefTRIAXone 1 GM VIAL IV SCH (09:18)
[2022-04-13] MEDS ORDERED: ALBUMIN HUMAN 25 GM/100 ML BAG IV ONE (09:30)
[2022-04-13] MEDS ORDERED: METOPROLOL TARTRATE 5 MG/5 ML VIAL IV ONE ×3 (09:43→09:56)
[2022-04-13] MEDS ORDERED: METOPROLOL TARTRATE 5 MG/5 ML VIAL IV PRN (09:54)
[2022-04-13] MEDS ORDERED: METOPROLOL TARTRATE 5 MG/5 ML VIAL IV SCH (10:00)
--- NOTE | 2022-04-13 11:42 | Ultrasound Report ---
Ultrasound-guided Paracentesis Technique: The procedure and risks including possibility of bleeding, infection, bowel and parenchymal organ perforation were explained the patient. She understood and wished to proceed. Teaching Pastor scanning demonstrated ascites in the right lower quadrant which was free of bowel. The skin was marked, prepped and locally anesthetized 1% lidocaine to the level of the parietal peritoneum using a 25-gauge needle. A 18-gauge Yueh needle was then placed under sonographic guidance into the ascites and five L of simple appearing ascites was aspirated. The needle was removed. Postprocedure scanning shows minimal residual ascites. No apparent complication - patient tolerated procedure well. IMPRESSION: Successful ultrasound-guided paracentesis yielding 5 L of simple appearing transudative ascites. The fluid was sent to the laboratory for requested studies. Postprocedure scanning shows only minimal residual fluid. Patient tolerated procedure well without apparent complication Interpreted and Authenticated by: Frandy Kruse 04/13/22
[2022-04-13] MEDS ORDERED: AMIODARONE 150 MG in DEXTROSE 5% IN WATER 50 ML IV ONE (11:45)
[2022-04-13] MEDS ORDERED: AMIODARONE 360 MG in PREMIX 1 BAG IV ONE (12:00)
--- NOTE | 2022-04-13 12:16 | EGD Procedure Note ---
EGD Procedure Notes Procedure Information Patient information: Note initiated : 04/13/22 at 12:13 pm Patient: Maryam Cruz 66 y/o F admitted on 04/07/22 for Chest Pain. Date of Procedure: 04/11/22 Pre-Op Diagnosis: Anemia. Melena. WANG cirrhosis. Post-Op Diagnosis: Esophageal varices with stigmata of bleeding, banded x 3. Procedure: egd with variceal banding Procedure Narrative: The procedure, alternatives and risks were discussed with the patient and the patient's questions were answered. With endoscopist-administered intravenous sedation, the Olympus video endoscope was introduced into the esophagus. The esophagus, stomach, and duodenum were examined sequentially. Small esophageal varices were seen in the esophagus. There was stigmata of recent bleeding. These were banded x 3. There is no ulceration or esophagitis. Food and pills were seen in the stomach body. The gastric mucosa, antrum, pyloric ring and duodenum were otherwise normal. The scope was withdrawn. Grafts/Implants: No Anesthesia: conscious sedation Findings: Esophageal varices with stigmata of bleeding, banded x 3. Complications: none Surgeon: Maurice Meng Estimated blood loss: 0 Specimens Removed/Pathology: none sent Condition: stable Disposition: same day Assessment: Esophageal varices with stigmata of bleeding, banded x 3.
[2022-04-13] MEDS ORDERED: SODIUM CHLORIDE 1 GM TABLET PO ONE (15:00)
[2022-04-13] MEDS: AMIODARONE 360 MG in PREMIX 1 BAG IV SCH (17:54)
[2022-04-13] MEDS: SIMVASTATIN 10 MG TABLET PO SCH (20:39)
[2022-04-13] MEDS: traZODone HCL 50 MG TABLET PO PRN (20:40)
[2022-04-13] MEDS: ONDANSETRON 4 MG/2 ML VIAL IV PRN (21:45)
[2022-04-14] MEDS: AMIODARONE 360 MG in PREMIX 1 BAG IV SCH (04:35)
[2022-04-14] MEDS: 0.9 % SODIUM CHLORIDE 10 ML SYRINGE IV SCH ×3 (05:54→21:21)
[2022-04-14 07:52] LABS: Blood Urea Nitrogen 15 mg/dL (8-23); Calcium 8.5 mg/dL (8.6-10.4); Carbon Dioxide 25 mmol/L (22-30); Chloride 87 mmol/L (96-108); Glomerular Filtration Rate 91; Glucose 244 mg/dL (70-105)
--- NOTE | 2022-04-14 08:04 | Internal Med Progress Note ---
SUBJECTIVE Subjective Patient information: Note initiated : 04/14/22 at 7:59 am Service Date, if different from initiated Date: [] Patient: Maryam Cruz a 66 y/o F admitted on 04/07/22 for Chest Pain. Chief Complaint: [] Interval history: Ms. Cruz is a 66 year old F history of cirrhosis with ascites, type 2 diabetes mellitus, dyslipidemia, hypothyroidism, psoriasis, presenting with 2-day history of palpitations, chest pressure, and warm of the chest wall. In addition, she was told 2 days ago that her serum potassium level was low at 123, with a baseline of 132. As result, she was told to cut her diuretics Lasix into half from the 1 60-80 Mg daily. A repeat serum sodium level was 121 today in the ED. Cardiac rhythm was on and off in atrial fibrillation's from telemetry blood and twelve-lead EKG done in the ED showing normal sinus rhythm. First troponin not elevated at <0.02. Patient currently denies any palpitation or chest pressure. She is only complaining of mild general body weakness. Admission request was called for symptomatic hyponatremia. 04/08: Serum troponin <0.02, <0.01, <0.01. Serum sodium level 121-->129-->118-->118. Her serum potassium at magnesium was also low overnight, and we will replaced with potassium rider and magnesium rider, respectively. Dose of lidocaine with D5W, and this is probably the reason why her serum sodium level dropped despite normal saline infusions. This morning patient is feeling fine, strength improving. She denies any chest pain chest pressure warmth or palpitations. Continue normal saline infusion at 75 cc/h, and BMP every 6 hours to trend serum sodium level. Goals of corrections 8-10 points per 24 hours to avoid overcorrection with SUSTAINABLE DESIGN CONSULTANT consequences such as central pontine myelinolysis. 04/09: Serum sodium level 122 this morning. Patient is complaining of abdominal distension. She is complaining of nausea and poor appetite. She is complaining of general body weakness. Saline lock. 1500cc/day fluid restriction. Salt tab 1gm PO TID. BMP@1800. Goals of corrections 8-10 points per 24 hours to avoid overcorrection with SUSTAINABLE DESIGN CONSULTANT consequences such as central pontine myelinolysis. PT/INR, therapeutic paracentesis when available. 04/10: Serum sodium level last evening (04/09) was 123, this morning's level pending. Patient is complaining of abdominal distention's. She is coming of nausea. She denies any vomiting. She denies any abdominal pain. She is coming of general weakness, same degree relative to yesterday. Plan for therapeutic paracentesis this morning to relieve her ascites. Saline lock. 1500cc/day fluid restriction. Salt tab 1gm PO TID. continue to monitor for this morning's sodium level. Physical therapy evaluation and treatments for placement planning. 04/11 Patient feels she slept a little better. She had a paracentesis of 5 L y esterday. She still feels like there is some fluid in there. Blood pressures been soft. Planes of occasional cough but no shortness of breath. H&H low at 7.7. Monitor and follow-up. Monitor for bleeding. Thrombocytopenia 91. Hyponatremia improved but elevated potassium mild today. 04/12 Patient feeling stronger today after getting blood yesterday. EGD yesterday which showed no active bleeding varices but 1 lesion where it looks like it had been bleeding. This varix was clipped. Hemoglobin stable today. No bleeding overnight. 1 reported dark stool that was formed last night at 8 PM. Hemoglobin 9.8. Thrombocytopenia 74,000. Hyponatremia 128. 04/13 Patient complains of abdominal distention and swelling and discomfort again. Sodium decreased. No bloody stools overnight. Likely paracentesis before discharge. Patient went into A. fib RVR with rates 130s 140s. Lopressor given x3 without response. Amiodarone bolus and drip started 04/14 Had a little nausea last night but better today. No bowel movements. Sodium decreased. That is post paracentesis yesterday 5 L. Hypokalemia. Review of Systems: denies headache/fever/chills/nausea/vomiting/chest pain/dyspnea/diarrhea. Otherwise see above. Constitutional Vitals: Vital Signs Temp Pulse Resp BP Pulse Ox O2 Del Method O2 Flow Rate 98.2 F 82 12 99/62 99 5 04/14/22 04:01 04/14/22 06:01 04/14/22 06:01 04/14/22 06:01 04/14/22 06:01 04/14/22 05:01 04/11/22 14:09 Period Temp Pulse Resp BP Sys/Tan Pulse Ox O2 Del Method O2 Flow Rate Last 24 Hr 97.7 F-98.2 F 33-128 9-28 85-148/60-120 91-100 Room Air-Room Air Intake and Output 04/13/22 04/14/22 04/14/22 19:59 03:59 11:59 Intake Total 373 178 Output Total 600 325 300 Balance -227 -325 -122 Weight 83.597 kg Intake & Output: Intake & Output 04/13/22 04/14/22 04/14/22 19:59 03:59 11:59 Intake Total 373 178 Output Total 600 325 300 Balance -227 -325 -122 Weight 83.597 kg Intake: IV 253 178 Cordarone 150 mg In Dextrose 5% 53 in Water 50 ml @ 300 mls/hr IV ONCE ONE Rx#:[id number] Nexterone 360 mg In Premix 1 200 178 Bag @ 0.5 MG/MIN 16.667 mls/hr IV .Q12H SHARRI Rx#:[id number] Oral 120 Output: Void Amount 600 325 300 Other: Meal Lunch Percent of Meal Consumed popsicle Urine Appearance Clear Clear Clear Urine Color Pale Pale Light [place] Exam: General: Alert, Awake, No acute Distress, obese Eyes/N/T: EOMI, Head/Neck: neck supple, CV: RRR, No murmurs, Pulm: Clear b/l, no wheezing/rhonchi/rales Abd: soft, nontender, +BS x4 Ext: no clubbing/cyanosis, trace b/l LE edema Neuro: Alert, no focal deficits, moves all extremities, Skin: warm/dry OBJ DATA Labs CBC & Chem 7: 04/12/22 05:48 04/14/22 05:28 Labs: Abnormal Lab Results 04/14/22 04/13/22 04/12/22 05:28 05:34 05:48 WBC RBC Hgb Hct RDW Plt Count Immature Gran % (Auto) Neut % (Auto) Lymph % (Auto) Lymph # (Auto) PT 15.4 H INR 1.2 H Sodium 124 L 125 L Potassium 3.2 L Chloride 87 L 90 L BUN Glucose 244 H 141 H Calcium 8.5 L 8.3 L Total Bilirubin Direct Bilirubin GGT AST Lactate Dehydrogenase Total Protein Globulin 04/12/22 04/12/22 04/11/22 05:48 05:47 21:29 WBC 3.8 L RBC 3.22 L Hgb 9.8 L 9.7 L Hct 28.8 L 28.7 L RDW 15.3 H Plt Count 74 L Immature Gran % (Auto) Neut % (Auto) Lymph % (Auto) 10.5 L Lymph # (Auto) 0.40 L PT INR Sodium 128 L Potassium Chloride 95 L BUN Glucose 139 H Calcium Total Bilirubin 1.4 H Direct Bilirubin 0.3 H GGT 42 H AST 32 H Lactate Dehydrogenase 126 L Total Protein 5.2 L Globulin 1.8 L 04/11/22 04/11/22 05:38 05:38 WBC RBC 2.49 L Hgb 7.7 L Hct 22.7 L RDW 15.6 H Plt Count 91 L Immature Gran % (Auto) 0.8 H Neut % (Auto) 78.2 H Lymph % (Auto) 8.5 L Lymph # (Auto) 0.44 L PT INR Sodium 129 L Potassium 5.3 H Chloride 95 L BUN 31 H Glucose 151 H Calcium Total Bilirubin Direct Bilirubin GGT 51 H AST 34 H Lactate Dehydrogenase Total Protein 5.3 L Globulin 2.0 L Meds: Medications Acetaminophen (Acetaminophen 325 Mg Tablet) 650 mg PO Q6HP PRN; Protocol PRN Reason: Per Pain Protocol/Fever > 101 Last Admin: 04/12/22 21:14 Dose: 650 mg Hydrocodone Bitart/Acetaminophen (Hydrocodone/Apap 5/325mg Tablet) 1 tab PO BIDP PRN; Protocol PRN Reason: migraine headache Last Admin: 04/08/22 13:24 Dose: 1 tab Albuterol Sulfate (Albuterol Sulfate 60 Puff Inhaler) 2 puff INH Q4HP PRN PRN Reason: asthma Albuterol/Ipratropium (Ipratropium/Albuterol 3 Ml Ampul.Neb) 3 ml NEB Q4HRT PRN PRN Reason: Wheezing Ceftriaxone Sodium (Ceftriaxone 1 Gm Vial) 1 gm IV Q24H SHARRI; Protocol Stop: 04/17/22 12:01 Last Admin: 04/13/22 09:18 Dose: 1 gm Dextrose (Dextrose 50% 50 Ml Vial) 0 ml IV UD PRN PRN Reason: Per Sliding Scale Diagnostic Test (Pha) (Accu-Chek 1 Each Strip) 1 each FS ACHS SHARRI Last Admin: 04/13/22 20:39 Dose: 1 each Furosemide (Furosemide 80 Mg Tablet) 80 mg PO QDAY [facility] Glucose (Dextrose 31 Gm Oral.Susp) 15 gm PO PRN PRN PRN Reason: Hypoglycemia AMIODARONE 360 mg/ Premix 200 mls @ 16.667 mls/hr IV .Q12H [facility] Stop: 04/14/22 11:59 Last Admin: 04/14/22 04:35 Dose: 0.5 mg/min, 16.667 mls/hr Insulin Human Lispro (Insulin Lispro 1 Unit/0.01 Ml Unit) [facility]; Protocol Last Admin: 04/13/22 20:39 Dose: Not Given Lactulose (Lactulose 20 Gm/30 Ml Oral.Lise) 10 gm PO DAILYP PRN PRN Reason: Constipation Levothyroxine Sodium (Levothyroxine 50 Mcg Tablet) 50 mcg PO 0730 [facility] Last Admin: 04/13/22 07:51 Dose: 50 mcg Magnesium Oxide (Magnesium Oxide 400 Mg Tablet) 400 mg PO BID [facility] Last Admin: 04/13/22 20:39 Dose: 400 mg Melatonin (Melatonin 3 Mg Tablet) 3 mg PO HSP PRN PRN Reason: Insomnia Last Admin: 04/11/22 00:07 Dose: 3 mg Metoprolol Tartrate (Metoprolol Tartrate 5 Mg/5 Ml Vial) 5 mg IV Q2HP PRN PRN Reason: Tachyarrhythmias HR>110 Last Admin: 04/13/22 09:28 Dose: 5 mg Midodrine (Midodrine 5 Mg Tablet) 10 mg PO TID@0800,1200,1700 [facility] Last Admin: 04/13/22 16:24 Dose: 10 mg Ondansetron HCl (Ondansetron 4 Mg/2 Ml Vial) 4 mg IV Q4HP PRN; Protocol PRN Reason: Nausea And Vomiting Last Admin: 04/13/22 21:45 Dose: 4 mg Pantoprazole Sodium (Pantoprazole 40 Mg Vial) 40 mg IV BID [facility] Last Admin: 04/13/22 20:39 Dose: 40 mg Apremilast 30 Mg (Tablet) 1 dose PO BIDCC [facility] Last Admin: 04/13/22 16:23 Dose: 1 dose Promethazine HCl (Promethazine 25 Mg/Ml Vial) 12.5 mg IV Q4-6HP PRN PRN Reason: Nausea And Vomiting Last Admin: 04/09/22 23:38 Dose: 12.5 mg Senna (Sennosides 1 Tablet) 2 tab PO HSP PRN PRN Reason: Constipation Simvastatin (Simvastatin 10 Mg Tablet) 10 mg PO QHS SHARRI Last Admin: 04/13/22 20:39 Dose: 10 mg Sodium Chloride (0.9 % Sodium Chloride 10 Ml Syringe) 10 ml IV Q8 [facility]ARRI Last Admin: 04/14/22 05:54 Dose: 10 ml Trazodone HCl (Trazodone Hcl 50 Mg Tablet) 50 mg PO HSP PRN PRN Reason: Insomnia Last Admin: 04/13/22 20:40 Dose: 50 mg A/P Narrative A/P Narrative: Assessment and Plans: *Hyponatremia: poor prognosis in cirrhosis -Daily chemistry to trend serum sodium level -fluid restrict *Cirrhosis(nonalcoholic) w/refractory ascites: -thrombocytopenia/hyperbilirubinemia/ -cont Midodrine. Propranolol held d/t to hypotension, hyponatremia and refractory ascites -pt did have an episode of afib @ [facility], if need BB will start a selective BB like lopressor or decrease dose of propranolol -pt physiologic state such that one treatment counter productive to other dz state. propranolol beneficial for bleeding varices / afib but worsens hypotension > ascites and hyponatremia. -Outpatient GI follow up and hepatology -low blood pressure, common in cirrhosis d/t decreased syst vasc resistance but BB contributing -paracentesis on 04/10 of 5L and then again 04/13 of 5L *GI bleed likely upper: EGD with varices no active bleeding but stigmata of bleeding > banded x3 -ppx abx -consulted Dr. Meng *acute blood loss Anemia: monitor H&H, component of dilution as well -2PRBC (04/11) with good response *Afib RVR: did not respond to lV lopressor, BP soft as usual so started amio gtt -pt converted yesterday late afternoon *Hypokalemia/Hypomagnesemia: -as needed replacement and f/u and trend *Hypothyroidism / HLD: Continue thyroid replacement therapy / statin *T2DM: -Hold Metformin , Insulin Lispro SSI *Psoriasis: Apremilast, Calcipotriene topical ,Halobetasol propionate topical *Obese: bmi 34. Lifestyle changes *Generalized weakness/deconditioning: -Physical therapy evaluation and treatment for placement planning *ppx: Lovenox(held for GI bleed), SCD / ppi Code status Time Spent With Patient Time: Total time spent is greater than 50% in coordination of care (as documented) at patient's floor/unit and/or counseling patient: Total time spent with greater than 50% in coordination of care (as documented) at patient's floor/unit and/or counseling patient:: 35 - 50 minutes QUALITY Stroke Symptom Onset Unknown: No VTE Deep Vein Thrombosis/Pulmonary Embolism Present on Admission: No
[2022-04-14] MEDS ORDERED: POTASSIUM CHLORIDE 20 MEQ TABLET PO SCH (08:20)
[2022-04-14] MEDS: INSULIN LISPRO 1 UNIT/0.01 ML UNIT SQ SCH ×4 (09:02→21:21)
[2022-04-14] MEDS: MAGNESIUM OXIDE 400 MG TABLET PO SCH ×2 (09:04→21:19)
[2022-04-14] MEDS: SODIUM CHLORIDE 1 GM TABLET PO SCH ×3 (09:04→21:19)
[2022-04-14] MEDS: LEVOTHYROXINE 50 MCG TABLET PO SCH (09:04)
[2022-04-14] MEDS: MIDODRINE 5 MG TABLET PO SCH ×3 (09:05→16:51)
[2022-04-14] MEDS: PANTOPRAZOLE 40 MG VIAL IV SCH ×2 (09:05→21:21)
[2022-04-14] MEDS: cefTRIAXone 1 GM VIAL IV SCH (09:05)
--- NOTE | 2022-04-14 12:54 | EKG ---
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 Measurements Intervals [place] Rate: 113 P: [place]: QRS: 2 QRSD: 81 T: 205 QT: 286 QTc: 393 Interpretive Statements Atrial fibrillation Ventricular premature complex Borderline repolarization abnormality Electronically Signed On 04-14-2022 12:54:14 PST by Frandy Hyatt M.D. /store/[email or web address]/[id number]
[2022-04-14] MEDS: METOPROLOL TARTRATE 25 MG TABLET PO SCH (21:19)
[2022-04-14] MEDS: traZODone HCL 50 MG TABLET PO PRN (21:19)
[2022-04-14] MEDS: SIMVASTATIN 10 MG TABLET PO SCH (21:19)
[2022-04-15] MEDS: 0.9 % SODIUM CHLORIDE 10 ML SYRINGE IV SCH (05:54)
[2022-04-15 07:06] LABS: Basophils # (Auto) 0.02 K/mcL (0.00-0.30); Basophils % (Auto) 0.4 % (0.0-2.0); Eosinophils # (Auto) 0.08 K/mcL (0.00-0.70); Eosinophils % (Auto) 1.6 % (0.0-7.0); Hematocrit 30.1 % (34.1-44.9); Hemoglobin 10.5 g/dL (11.2-15.7); Lymphocytes # (Auto) 0.32 K/mcL (1.50-4.80); Lymphocytes % (Auto) 6.3 % (15.5-49.0); Mean Cell Volume 88.8 fL (80.0-100.0); Mean Corpuscular HGB Conc 34.9 g/dL (31.0-36.0); Mean Platelet Volume 10.8 fL (8.8-12.5); Monocytes % (Auto) 11.8 % (1.0-12.0); Neutrophils % (Auto) 79.3 % (38.0-78.0); Platelet Count 88 K/mcL (140-440); RBC 3.39 M/mcL (3.59-5.38); Red Cell Distribution Width 15.3 % (11.5-14.5); WBC 5.1 K/mcL (4.5-11.0)
[2022-04-15 07:28] LABS: Blood Urea Nitrogen 13 mg/dL (8-23); Calcium 8.2 mg/dL (8.6-10.4); Carbon Dioxide 27 mmol/L (22-30); Chloride 92 mmol/L (96-108); Glomerular Filtration Rate 96; Glucose 135 mg/dL (70-105)
[2022-04-15] MEDS: INSULIN LISPRO 1 UNIT/0.01 ML UNIT SQ SCH (08:15)
[2022-04-15] MEDS: MIDODRINE 5 MG TABLET PO SCH (08:36)
[2022-04-15] MEDS: LEVOTHYROXINE 50 MCG TABLET PO SCH (08:36)
[2022-04-15] MEDS: MAGNESIUM OXIDE 400 MG TABLET PO SCH (08:37)
[2022-04-15] MEDS: METOPROLOL TARTRATE 25 MG TABLET PO SCH (08:37)
[2022-04-15] MEDS: PANTOPRAZOLE 40 MG VIAL IV SCH (08:37)
[2022-04-15] MEDS: cefTRIAXone 1 GM VIAL IV SCH (08:46)
[2022-04-15] MEDS ORDERED: FUROSEMIDE 80 MG TABLET PO SCH (09:00)
== END 2022-04-15 12:00 | DRG 640 ==
LOC: ED 10:34 → ICU 14:57
PROVIDERS: ADMIT Internal Medicine; ATTEND Internal Medicine

== ENCOUNTER 2022-06-22 10:30 | Inpatient (IN) ==
[2022-06-22 10:58] LABS: POC Calcium, Ionized 1.22 (1.16-1.32); POC Creatinine 0.9 (0.6-1.2); POC Potassium 6.1 (3.3-5.1)
--- NOTE | 2022-06-22 11:06 | Emergency Department Note ---
HPI General Chief complaint: Recheck/Abnormal Lab/Rx Stated complaint: Low Sodium Levels Time Seen by Provider: 06/22/22 10:38 Source: patient Mode of arrival: ambulatory Limitations: no limitations History of Present Illness HPI Narrative: Narrative: This is a pleasant 66-year-old female who presents emergency dep artment with concerns for low sodium. She has had a problem with the sodium for a while now and was actually admitted in March of last year for hyponatremia and took about 7 days to get her back up to 127. She reports that on the she had her blood drawn and it was 121. Yesterday they were at they had her blood drawn and it resulted today which was 119 and they were told to come into the emergency department. The patient reports that she has had a little bit of nausea and was having cramps in her legs and feet last night but otherwise has not been having any other symptoms including headache, blurry vision, neck stiffness, chest pain, shortness of breath, disequilibrium, abdominal pain, diarrhea, vomiting, dysuria urinary frequency or urgency. She was told about a week ago to stop taking her Lasix. She was not told to stop taking her potassium which she has continued which is most likely the reason for her slightly elevated potassium here in the emergency department. She does have a history of nonalcoholic fatty liver disease that she is seeing for a possible liver transplant in the near future. She denies confusion or focal neurological deficits. Related Data Home Medications Medication Instructions Recorded Confirmed ascorbic acid (vitamin C) 500 mg 500 mg PO QDAY 11/19/18 06/22/22 tablet ferrous sulfate 325 mg (65 mg 325 mg PO QDAY 11/19/18 06/22/22 iron) tablet vitamin B complex 1 tab PO QDAY 01/15/19 06/22/22 spironolactone 100 mg tablet 200 mg PO QAM 04/10/22 06/22/22 Previous Rx's Medication Instructions Recorded Accu-Chek Compact Test (blood #102 ea 05/24/15 sugar diagnostic, drum) magnesium oxide 400 mg (241.3 mg 400 mg PO BID #180 tabs 05/29/16 magnesium) tablet lancets 33 gauge (OneTouch Delica #100 ea 01/03/18 Lancets) hydrocodone 5 mg-acetaminophen 325 1 tab PO BID PRN migraine headache 10/10/21 mg tablet #14 tabs apremilast 30 mg tablet 30 mg PO BID #180 tabs 11/03/21 pravastatin 20 mg tablet 20 mg PO QHS #90 tabs 12/29/21 albuterol sulfate 90 mcg/actuation 2 puff inhalation Q4H PRN asthma 01/30/22 aerosol inhaler #8.5 grams levothyroxine 50 mcg tablet 50 mcg PO QDAY #90 tabs 01/31/22 metformin 850 mg tablet 850 mg PO QDAY #90 tabs 02/06/22 propranolol 20 mg tablet 10 mg PO BID #30 tabs 04/12/22 ondansetron 4 mg disintegrating 4 mg PO Q6H PRN nausea and 04/18/22 tablet vomiting #20 tabs furosemide 80 mg tablet 80 mg PO QAM #90 tabs 05/30/22 midodrine 10 mg tablet 10 mg PO TID #90 tabs 05/30/22 blood sugar diagnostic (OneTouch #100 ea 06/01/22 Verio test strips) Allergies Allergy/AdvReac Type Severity Reaction Status Date / Time Sulfa (Sulfonamide Allergy Severe SWELLING Verified 06/22/22 15:31 Antibiotics) [SULFA (SULFONAMIDE ANTIBIOTICS)] NSAIDS (Non-Steroidal AdvReac Mild STOMACH Verified 06/22/22 15:31 Anti-Inflamma ULCERS [NSAIDS (NON-STEROIDAL ANTI-INFLAMMA] Review of Systems ROS ROS Narrative: Narrative: All systems ED: reviewed and negative except as stated. [facility] Narrative Patient History Narrative: Narrative: Medical/Surgical/Family History All Active Problems (Updated 06/22/22 @ 22:27 by Travis Snider PA-C) Ascites (Acute) Esophageal varices in cirrhosis (Acute) Insomnia (Acute) Hypomagnesemia (Acute) Hypokalemia (Acute) Acute hyponatremia (Acute) Hyponatremia (Acute) Cirrhosis of liver with ascites (Acute) Heart palpitations (Acute) Ascites (Acute) Acute hypotension (Acute) Ascites (Acute) Lesion of lip (Acute) Diarrhea (Acute) Abdominal bloating (Acute) Anemia (Chronic) Asthma (Chronic) Cholelithiasis (Chronic 03/23/13) Cirrhosis of liver (Chronic 03/23/13) Dermatitis (Chronic) Diabetes mellitus, type II (Chronic) Edema (Chronic) Elevated liver enzymes (Chronic) Esophageal varices (Chronic 05/22/13) Gastritis (Chronic 05/22/13) Hyperkalemia (Chronic) Hyperlipidemia (Chronic) Hypertension, essential (Chronic) Hypothyroidism (Chronic) Leukocytopenia (Chronic) Fatty liver disease, nonalcoholic (Chronic) Abnormal liver function test (Chronic) Migraine (Chronic) Obesity, morbid (Chronic) Obstructive sleep apnea (Chronic) Osteoarthritis (Chronic) Overactive bladder (Chronic) Presbyopia (Chronic) Reactive airway disease (Chronic) Rosacea (Chronic) Rotator cuff impingement syndrome (Chronic) Elevated sedimentation rate (Chronic) Splenomegaly (Chronic 02/24/13) Thrombocytopenia (Chronic) Vitamin D deficiency (Chronic) Psoriasis with arthropathy (Chronic) Hyperuricemia (Chronic) Encounter for long-term current use of high risk medication (Chronic) Numbness and tingling sensation of skin (Chronic) Dysphagia (Chronic) Metabolic Syndrome X (Chronic) Low back pain (Chronic) Chest discomfort (Chronic) Skin lesion (Chronic) Migraine (Chronic) Depression (Chronic) Weight loss, intentional (Chronic) Callus of foot (Chronic) Dysuria (Acute) Retinal ischemia (Chronic) Retinal hemorrhage (Chronic) CKD (chronic kidney disease), stage II (Chronic) Medicare annual wellness visit, initial (Acute) Low blood pressure (Acute) Medicare annual wellness visit, subsequent (Acute) Neck pain (Acute) Lumbar radiculopathy, right (Acute) Right hip pain (Acute) Medical History Abnormal liver function test Anemia Mild Asthma No recent exacerbation or need for albuterol. Refill albuterol today. Advised patient to call clinic if she develops upper respiratory symptoms. Cholelithiasis (03/23/13) Asymptomatic Cirrhosis of liver (03/23/13) Dermatitis Diabetes mellitus, type II Dysphagia since last variceal banding Edema Mild Elevated liver enzymes Elevated sedimentation rate Encounter for long-term current use of high risk medication Esophageal varices (05/22/13) banded several times Fatty liver disease, nonalcoholic Fracture of finger, closed 1983: Right Small Finger, 1977 Right Small Finger, 1977 Right Thumb Gastritis (05/22/13) Gum abscess Hyperkalemia Hyperlipidemia Hypertension, essential Hypotension improved after decreased losartan dose Continue losartan as well as spironolactone, propranolol, and Lasix. Low-sodium diet recommended. Hyperuricemia H/O Hypothyroidism Leukocytopenia Secondary to cirrhosis. Medicare annual wellness visit, initial Medicare annual wellness visit, subsequent Metabolic Syndrome X Migraine Nuclear sclerosis Obesity, morbid Obstructive sleep apnea With the weight loss she feels she does not need CPAP Osteoarthritis Overactive bladder Pancytopenia (12/25/11) Pelvic inflammatory disease 1978 Presbyopia Psoriasis with arthropathy Rash similar to previous episodes of psoriasis. Reactive airway disease Right hip pain Rosacea Rotator cuff impingement syndrome Splenomegaly (02/24/13) Thrombocytopenia Secondary to cirrhosis. Vertigo BPPV Vitamin D deficiency Surgical History History of arthroscopy of left knee 2008 History of section 1989, 1985 History of colonoscopy (06/15/21) 08/29/10 - Dr Pineda - TA times two. 10/04/15 - normal-5 year follow up. History of endometrial ablation February 2003 menometrorrhagia History of esophagogastroduodenoscopy (06/15/21) 06/12/2014-Esophageal Varices 05/22/2013-No abnormalities. 05/31/15-Dr Delgado - Grade II esophageal varices. 01/08/17-July [place], Varices, banded 2. 01/07/18-esophageal varices banded x2. Dr. Saunders. 1 year follow-up EGD. 12/08/20 History of laparoscopy 1983 Diagnostic, infertility History of liver biopsy (03/03/13) Chronic hepatitis Family History Unknown Essential hypertension Social History Smoking Status: Former smoker Alcohol Intake Frequency: former alcohol drinker Substance Use: does not use Exam Narrative Narrative: Narrative: General: Alert, in no acute distress Head: No trauma normocephalic Eyes: PERRLA, EOMs intact no scleral icterus or scleral injection Neck: Full range of motion, no midline tenderness ENT: Moist mucous membranes, uvula is midline. No sign of peritonsillar abscess or Mario's angina. Cardiovascular: Regular rate and rhythm no murmur Respiratory: Clear to auscultation bilaterally. No rhonchi rales or wheezes, no respiratory distress Abdomen pelvis: Abdomen is soft and nontender to palpation. There is no guarding no rebound tenderness. Negative Tillman sign. No tenderness over McBurney's point. Neuro: Patient is alert and oriented x3 Psych: Normal affect, normal mood Skin: Warm, no rash, normal color General Limitations: no limitations Course Vital Signs Vital signs: Vital Signs Temperature 97 F 06/22/22 10:35 Pulse Rate 83 06/22/22 10:35 Respiratory Rate 19 06/22/22 10:35 Blood Pressure 106/72 06/22/22 10:35 Pulse Oximetry (%) 98 06/22/22 10:35 Oxygen Delivery Method Room Air 06/22/22 10:35 Temperature 97.7 F 06/22/22 19:41 Pulse Rate 84 06/22/22 19:41 Respiratory Rate 18 06/22/22 19:41 Blood Pressure 94/60 06/22/22 19:41 Pulse Oximetry (%) 100 06/22/22 19:41 Oxygen Delivery Method Room Air 06/22/22 19:41 MDM MDM Narrative Medical decision making narrative: Narrative: Sodium Correction for Hyperglycemia from [facility] on 06/22/2022 All calculations should be rechecked by clinician prior to use RESULT SUMMARY: 119 mEq/L Corrected Sodium ([place], 1973) 120 mEq/L Corrected Sodium ([place], 1999) INPUTS: Sodium > 118 mEq/L Glucose > 187 mg/dL Patient's labs are reviewed. Her white blood cell count did to show any elevation H&H is stable patient has a critical low sodium at 118 [id number] potassium at 6.1 although this is most likely due to the patient still taking her supplemental potassium since she did not know to stop it when she stopped taking the furosemide. BUN and creatinine stable, urine does not show any sign of infection I did speak with the [facility] food demonstrator and they felt comfortable having us treat the patient for her hyponatremia here in [place]. I spoke with the hospitalist Dr. Collins who agreed to admit the patient for further evaluation and treatment. Lab Data 06/22/22 10:50 Labs: Lab Results 06/22/22 06/22/22 06/22/22 Range/Units 10:50 10:50 10:50 WBC 6.1 (4.5-11.0) K/mcL RBC 3.79 (3.59-5.38) M/mcL Hgb 12.0 (11.2-15.7) g/dL Hct 34.3 (34.1-44.9) % POC Hct (36-48) MCV 90.5 (80.0-100.0) fL MCH 31.7 (26.0-34.0) pg MCHC 35.0 (31.0-36.0) g/dL RDW 15.0 H (11.5-14.5) % Plt Count 182 (140-440) K/mcL MPV 9.4 (8.8-12.5) fL Immature Gran % (Auto) 1.1 H (0.0-0.5) % Neut % (Auto) 78.8 H (38.0-78.0) % Lymph % (Auto) 4.2 L (15.5-49.0) % Lamar % (Auto) 12.7 H (1.0-12.0) % Eos % (Auto) 2.1 (0.0-7.0) % Baso % (Auto) 1.1 (0.0-2.0) % Lymph # (Auto) 0.26 L (1.50-4.80) K/mcL Lamar # (Auto) 0.78 (0.10-0.90) K/mcL Eos # (Auto) 0.13 (0.00-0.70) K/mcL Baso # (Auto) 0.07 (0.00-0.30) K/mcL Immature Gran # 0.07 H (0.00-0.05) K/mcl Absolute Neutrophils 4.83 (1.80-8.00) K/mcL POC Sodium (133-145) Sodium (133-145) mmol/L POC Potassium (3.3-5.1) Potassium (3.3-5.1) mmol/L POC Chloride (96-108) Chloride (96-108) mmol/L Carbon Dioxide (22-30) mmol/L POC Total CO2 (22-30) Anion Gap (8.0-16.0) POC BUN (6-20) BUN (8-23) mg/dL Creatinine (0.6-1.1) mg/dL POC Creatinine (0.6-1.2) GFR Calculation Glucose (70-105) mg/dL POC Glucose (70-105) Osmolality 267 L (280-300) mOSM/kg Calcium (8.6-10.4) mg/dL POC WB Ioniz Calcium (1.16-1.32) Magnesium 2.0 (1.6-2.5) mg/dL Total Bilirubin 1.6 H (0.1-1.0) mg/dL Direct Bilirubin 0.4 H (<0.3) mg/dL AST 72 H (<32) U/L ALT 47 H (<40) U/L Alkaline Phosphatase 104 (39-117) U/L Total Protein 6.7 (5.9-8.4) gm/dL Albumin 3.8 (3.2-5.2) gm/dL Globulin 2.9 (2.2-3.7) gm/dL Urine Color Urine Appearance (Clear) Urine pH (5.0-9.0) Ur Specific [place] (1.000-1.035) Urine Protein (Negative) mg/dL Urine Glucose (UA) (Negative) mg/dL Urine Ketones (Negative) mg/dL Urine Occult Blood (Negative) mg/dL Urine Nitrate (Negative) Urine Bilirubin (Negative) mg/dL Urine Urobilinogen mg/dL Ur Leukocyte Esterase (Negative) /uL Urine RBC (0-3) /hpf Urine WBC (0-4) /hpf Ur Squamous Epith Cells (0-4) /hpf Urine Bacteria (0) /hpf Hyaline Casts (0-2) /lph Urine Mucus (None) /hpf Ur Culture Indicated? Urine Osmolality (80-1000) mOSM/kg Ur Random Sodium mmol/L 06/22/22 06/22/22 06/22/22 Range/Units 10:50 10:56 13:40 WBC (4.5-11.0) K/mcL RBC (3.59-5.38) M/mcL Hgb (11.2-15.7) g/dL Hct (34.1-44.9) % POC Hct 36.0 (36-48) MCV (80.0-100.0) fL MCH (26.0-34.0) pg MCHC (31.0-36.0) g/dL RDW (11.5-14.5) % Plt Count (140-440) K/mcL MPV (8.8-12.5) fL Immature Gran % (Auto) (0.0-0.5) % Neut % (Auto) (38.0-78.0) % Lymph % (Auto) (15.5-49.0) % Lamar % (Auto) (1.0-12.0) % Eos % (Auto) (0.0-7.0) % Baso % (Auto) (0.0-2.0) % Lymph # (Auto) (1.50-4.80) K/mcL Lamar # (Auto) (0.10-0.90) K/mcL Eos # (Auto) (0.00-0.70) K/mcL Baso # (Auto) (0.00-0.30) K/mcL Immature Gran # (0.00-0.05) K/mcl Absolute Neutrophils (1.80-8.00) K/mcL POC Sodium 118 L* (133-145) Sodium 119 L* (133-145) mmol/L POC Potassium 6.1 H* (3.3-5.1) Potassium 6.3 H* (3.3-5.1) mmol/L POC Chloride 89 L (96-108) Chloride 85 L (96-108) mmol/L Carbon Dioxide 20 L (22-30) mmol/L POC Total CO2 25.0 (22-30) Anion Gap 14.0 (8.0-16.0) POC BUN 30 H (6-20) BUN 31 H (8-23) mg/dL Creatinine 0.8 (0.6-1.1) mg/dL POC Creatinine 0.9 (0.6-1.2) GFR Calculation 77 Glucose 190 H (70-105) mg/dL POC Glucose 187 H (70-105) Osmolality (280-300) mOSM/kg Calcium 9.9 (8.6-10.4) mg/dL POC WB Ioniz Calcium 1.22 (1.16-1.32) Magnesium (1.6-2.5) mg/dL Total Bilirubin (0.1-1.0) mg/dL Direct Bilirubin (<0.3) mg/dL AST (<32) U/L ALT (<40) U/L Alkaline Phosphatase (39-117) U/L Total Protein (5.9-8.4) gm/dL Albumin (3.2-5.2) gm/dL Globulin (2.2-3.7) gm/dL Urine Color Urine Appearance (Clear) Urine pH (5.0-9.0) Ur Specific [place] (1.000-1.035) Urine Protein (Negative) mg/dL Urine Glucose (UA) (Negative) mg/dL Urine Ketones (Negative) mg/dL Urine Occult Blood (Negative) mg/dL Urine Nitrate (Negative) Urine Bilirubin (Negative) mg/dL Urine Urobilinogen mg/dL Ur Leukocyte Esterase (Negative) /uL Urine RBC (0-3) /hpf Urine WBC (0-4) /hpf Ur Squamous Epith Cells (0-4) /hpf Urine Bacteria (0) /hpf Hyaline Casts (0-2) /lph Urine Mucus (None) /hpf Ur Culture Indicated? Urine Osmolality 517 (80-1000) mOSM/kg Ur Random Sodium < 10 mmol/L 06/22/22 Range/Units 13:40 WBC (4.5-11.0) K/mcL RBC (3.59-5.38) M/mcL Hgb (11.2-15.7) g/dL Hct (34.1-44.9) % POC Hct (36-48) MCV (80.0-100.0) fL MCH (26.0-34.0) pg MCHC (31.0-36.0) g/dL RDW (11.5-14.5) % Plt Count (140-440) K/mcL MPV (8.8-12.5) fL Immature Gran % (Auto) (0.0-0.5) % Neut % (Auto) (38.0-78.0) % Lymph % (Auto) (15.5-49.0) % Lamar % (Auto) (1.0-12.0) % Eos % (Auto) (0.0-7.0) % Baso % (Auto) (0.0-2.0) % Lymph # (Auto) (1.50-4.80) K/mcL Lamar # (Auto) (0.10-0.90) K/mcL Eos # (Auto) (0.00-0.70) K/mcL Baso # (Auto) (0.00-0.30) K/mcL Immature Gran # (0.00-0.05) K/mcl Absolute Neutrophils (1.80-8.00) K/mcL POC Sodium (133-145) Sodium (133-145) mmol/L POC Potassium (3.3-5.1) Potassium (3.3-5.1) mmol/L POC Chloride (96-108) Chloride (96-108) mmol/L Carbon Dioxide (22-30) mmol/L POC Total CO2 (22-30) Anion Gap (8.0-16.0) POC BUN (6-20) BUN (8-23) mg/dL Creatinine (0.6-1.1) mg/dL POC Creatinine (0.6-1.2) GFR Calculation Glucose (70-105) mg/dL POC Glucose (70-105) Osmolality (280-300) mOSM/kg Calcium (8.6-10.4) mg/dL POC WB Ioniz Calcium (1.16-1.32) Magnesium (1.6-2.5) mg/dL Total Bilirubin (0.1-1.0) mg/dL Direct Bilirubin (<0.3) mg/dL AST (<32) U/L ALT (<40) U/L Alkaline Phosphatase (39-117) U/L Total Protein (5.9-8.4) gm/dL Albumin (3.2-5.2) gm/dL Globulin (2.2-3.7) gm/dL Urine Color Yellow Urine Appearance Clear (Clear) Urine pH 6.0 (5.0-9.0) Ur Specific [place] 1.016 (1.000-1.035) Urine Protein Negative (Negative) mg/dL Urine Glucose (UA) Negative (Negative) mg/dL Urine Ketones Negative (Negative) mg/dL Urine Occult Blood Negative (Negative) mg/dL Urine Nitrate Negative (Negative) Urine Bilirubin Negative (Negative) mg/dL Urine Urobilinogen Negative mg/dL Ur Leukocyte Esterase Negative (Negative) /uL Urine RBC < 1 (0-3) /hpf Urine WBC 1 (0-4) /hpf Ur Squamous Epith Cells 1 (0-4) /hpf Urine Bacteria None (0) /hpf Hyaline Casts 6 H (0-2) /lph Urine Mucus Few A (None) /hpf Ur Culture Indicated? No Urine Osmolality (80-1000) mOSM/kg Ur Random Sodium mmol/L EKG Data EKG #1: EKG results narrative: ECG shows normal sinus rhythm, normal axis, normal PA interval narrow QRS normal QTC. There is no signs of Brugada, Kmacr-Hisbgtjsy-Nmigl or HOCM. There is no dagger Q waves. There is no ST segment deviation or hyperacute T waves. My interpretation is normal sinus rhythm. Discharge Plan Patient/Caregiver Discharge Instructions Pt seen by WELL DRILLER/PA only: Yes Clinical Impression: Hyperkalemia, Acute hyponatremia Patient Disposition: Xfer As Inpt ([facility]) Discharge Date/Time: 06/22/22 14:53
[2022-06-22] MEDS ORDERED: 0.9 % SODIUM CHLORIDE 500 ML IV ONE (11:33)
[2022-06-22 11:43] LABS: Basophils # (Auto) 0.07 K/mcL (0.00-0.30); Basophils % (Auto) 1.1 % (0.0-2.0); Eosinophils # (Auto) 0.13 K/mcL (0.00-0.70); Eosinophils % (Auto) 2.1 % (0.0-7.0); Hematocrit 34.3 % (34.1-44.9); Lymphocytes # (Auto) 0.26 K/mcL (1.50-4.80); Lymphocytes % (Auto) 4.2 % (15.5-49.0); Mean Cell Volume 90.5 fL (80.0-100.0); Mean Platelet Volume 9.4 fL (8.8-12.5); Monocytes # (Auto) 0.78 K/mcL (0.10-0.90); Monocytes % (Auto) 12.7 % (1.0-12.0); Neutrophils % (Auto) 78.8 % (38.0-78.0); Platelet Count 182 K/mcL (140-440); RBC 3.79 M/mcL (3.59-5.38); WBC 6.1 K/mcL (4.5-11.0)
[2022-06-22 12:17] LABS: ALT/SGPT 47 U/L (<40); AST/SGOT 72 U/L (<32); Albumin 3.8 gm/dL (3.2-5.2); Alkaline Phosphatase 104 U/L (39-117); Bilirubin,Direct 0.4 mg/dL (<0.3); Bilirubin,Total 1.6 mg/dL (0.1-1.0); Globulin 2.9 gm/dL (2.2-3.7)
[2022-06-22 12:59] LABS: Blood Urea Nitrogen 31 mg/dL (8-23); Calcium 9.9 mg/dL (8.6-10.4); Carbon Dioxide 20 mmol/L (22-30); Chloride 85 mmol/L (96-108); Glomerular Filtration Rate 77; Glucose 190 mg/dL (70-105)
--- NOTE | 2022-06-22 13:21 | EKG ---
[facility] Test Date: 2022-06-22 Pat Name: Maryam Cruz Department: ED Room: Gender: Female [employer] Worker: ss : 1955 Requested By: Travis Snider Order Number: [id number] Reading MD: Mao Britton Measurements Intervals [place] Rate: 81 P: 63 IA: 152 QRS: 32 QRSD: 87 T: 43 QT: 354 QTc: 411 Interpretive Statements Sinus rhythm Probable left atrial enlargement Anteroseptal infarct, age indeterminate Electronically Signed On 06-22-2022 13:21:08 PST by Mao Britton /store/M0/[id number]
--- NOTE | 2022-06-22 13:50 | Internal Med History&Physical ---
HPI History of Present Illness Patient information: Note initiated : 06/22/22 at 1:48 pm Service Date, if different from initiated Date: [] Patient: Maryam Cruz a 66 y/o F admitted on for Low Sodium Levels. Chief Complaint: [lab abnormalities] Chief complaint: lab abnormalities History of present illness: Ms. Cruz is a 66 year old F history of nonalcoholic cirrhosis, type 2 diabetes, hypothyroidism, presenting with lab abnormalities. She was being followed with [facility] and hepatology team and as part of the routine work-up she received weekly lab checks. Last week she was told that her serum sodium level was at 121 and that she should stop taking her Lasix and spironolactone. She still took her potassium chloride supplement. She received paracentesis with 5 L ascitic fluid removed yesterday 06/21, and a repeat lab check indicated her serum sodium level was 119 and her potassium level was 6.1, and she was told to come to ED for further evaluations. A repeat lab checks in the ED today showing a serum sodium level of 119 and potassium level 6.3. EKG did not show any EKG changes associated with hyperkalemia. 1 L normal saline bolus was being given in the ED. Admission request is called for hyponatremia and hypokalemia. Constitutional Constitutional: Absent chills, excessive sweating, fatigue, fever(s) or weakness EENT Eyes: Absent blurry vision, change in vision, loss of vision or other visual disturbances Ears: Absent decreased hearing or tinnitus Nose, mouth and throat: Absent abnormal hearing, dry mouth, headache(s), nasal congestion or sore throat Cardiovascular Cardiovascular: Absent chest pain, chest pain at rest, edema, irregular heart rhythm or palpatations Respiratory Respiratory: Absent cough, dyspnea or wheezing Gastrointestinal Gastrointestinal: Absent abdominal pain, constipation, diarrhea, nausea or vomiting Musculoskeletal Musculoskeletal: Absent back pain, deformity, limited range of motion, muscle cramps, muscle weakness or numbness Integumentary Integumentary: Absent lesions, rash or wounds Neurological Neurological: Absent focal weakness, headache(s) or numbness Psychiatric Psychiatric: Absent anxiety, depression or hallucinations PFSH PFSH All Active Problems Ascites (Acute) Esophageal varices in cirrhosis (Acute) Insomnia (Acute) Hypomagnesemia (Acute) Hypokalemia (Acute) Acute hyponatremia (Acute) Hyponatremia (Acute) Cirrhosis of liver with ascites (Acute) Heart palpitations (Acute) Ascites (Acute) Acute hypotension (Acute) Ascites (Acute) Lesion of lip (Acute) Diarrhea (Acute) Abdominal bloating (Acute) Anemia (Chronic) Asthma (Chronic) Cholelithiasis (Chronic 03/23/13) Cirrhosis of liver (Chronic 03/23/13) Dermatitis (Chronic) Diabetes mellitus, type II (Chronic) Edema (Chronic) Elevated liver enzymes (Chronic) Esophageal varices (Chronic 05/22/13) Gastritis (Chronic 05/22/13) Hyperkalemia (Chronic) Hyperlipidemia (Chronic) Hypertension, essential (Chronic) Hypothyroidism (Chronic) Leukocytopenia (Chronic) Fatty liver disease, nonalcoholic (Chronic) Abnormal liver function test (Chronic) Migraine (Chronic) Obesity, morbid (Chronic) Obstructive sleep apnea (Chronic) Osteoarthritis (Chronic) Overactive bladder (Chronic) Presbyopia (Chronic) Reactive airway disease (Chronic) Rosacea (Chronic) Rotator cuff impingement syndrome (Chronic) Elevated sedimentation rate (Chronic) Splenomegaly (Chronic 02/24/13) Thrombocytopenia (Chronic) Vitamin D deficiency (Chronic) Psoriasis with arthropathy (Chronic) Hyperuricemia (Chronic) Encounter for long-term current use of high risk medication (Chronic) Numbness and tingling sensation of skin (Chronic) Dysphagia (Chronic) Metabolic Syndrome X (Chronic) Low back pain (Chronic) Chest discomfort (Chronic) Skin lesion (Chronic) Migraine (Chronic) Depression (Chronic) Weight loss, intentional (Chronic) Callus of foot (Chronic) Dysuria (Acute) Retinal ischemia (Chronic) Retinal hemorrhage (Chronic) CKD (chronic kidney disease), stage II (Chronic) Medicare annual wellness visit, initial (Acute) Low blood pressure (Acute) Medicare annual wellness visit, subsequent (Acute) Neck pain (Acute) Lumbar radiculopathy, right (Acute) Right hip pain (Acute) Medical History Abnormal liver function test Anemia Mild Asthma No recent exacerbation or need for albuterol. Refill albuterol today. Advised patient to call clinic if she develops upper respiratory symptoms. Cholelithiasis (03/23/13) Asymptomatic Cirrhosis of liver (03/23/13) Dermatitis Diabetes mellitus, type II Dysphagia since last variceal banding Edema Mild Elevated liver enzymes Elevated sedimentation rate Encounter for long-term current use of high risk medication Esophageal varices (05/22/13) banded several times Fatty liver disease, nonalcoholic Fracture of finger, closed 1984: Right Small Finger, 1977 Right Small Finger, 1976 Right Thumb Gastritis (05/22/13) Gum abscess Hyperkalemia Hyperlipidemia Hypertension, essential Hypotension improved after decreased losartan dose Continue losartan as well as spironolactone, propranolol, and Lasix. Low-sodium diet recommended. Hyperuricemia H/O Hypothyroidism Leukocytopenia Secondary to cirrhosis. Medicare annual wellness visit, initial Medicare annual wellness visit, subsequent Metabolic Syndrome X Migraine Nuclear sclerosis Obesity, morbid Obstructive sleep apnea With the weight loss she feels she does not need CPAP Osteoarthritis Overactive bladder Pancytopenia (12/25/11) Pelvic inflammatory disease 1977 Presbyopia Psoriasis with arthropathy Rash similar to previous episodes of psoriasis. Reactive airway disease Right hip pain Rosacea Rotator cuff impingement syndrome Splenomegaly (02/24/13) Thrombocytopenia Secondary to cirrhosis. Vertigo BPPV Vitamin D deficiency Surgical History History of arthroscopy of left knee 2008 History of section 1989, 1985 History of colonoscopy (06/15/21) 08/29/10 - Dr Pineda - TA times two. 10/04/15 - normal-5 year follow up. History of endometrial ablation February 2003 menometrorrhagia History of esophagogastroduodenoscopy (06/15/21) 06/12/2014-Esophageal Varices 05/22/2013-No abnormalities. 05/31/15-Dr Delgado - Grade II esophageal varices. 01/08/17-Kate Piscetello, Varices, banded 2. 01/07/18-esophageal varices banded x2. Dr. Saunders. 1 year follow-up EGD. 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 smoking status: Former smoker alcohol intake frequency: former alcohol drinker substance use type: does not use MEDS/ALLERGIES Home Medications and Allergies Home Medications Medication Instructions Recorded Confirmed Type Accu-Chek Compact Test (blood #102 ea 05/24/15 04/18/22 Rx sugar diagnostic, drum) magnesium oxide 400 mg (241.3 mg 400 mg PO BID #180 tabs 05/29/16 04/18/22 Rx magnesium) tablet lancets 33 gauge (OneTouch Delica #100 ea 01/03/18 04/18/22 Rx Lancets) ascorbic acid (vitamin C) 500 mg 500 mg PO QDAY 11/19/18 04/18/22 History tablet ferrous sulfate 325 mg (65 mg 325 mg PO QDAY 11/19/18 04/18/22 History iron) tablet vitamin B complex 1 tab PO QDAY 01/15/19 04/18/22 History calcipotriene 0.005 % topical cream 1 applic topical BID PRN psoriasis 01/24/21 04/18/22 Rx #120 grams halobetasol propionate 0.05 % 1 applic topical BID PRN psoriasis 01/24/21 04/18/22 Rx topical ointment #50 grams hydrocodone 5 mg-acetaminophen 325 1 tab PO BID PRN migraine headache 10/10/21 04/18/22 Rx mg tablet #14 tabs apremilast 30 mg tablet 30 mg PO BID #180 tabs 11/03/21 04/18/22 Rx pravastatin 20 mg tablet 20 mg PO QHS #90 tabs 12/29/21 04/18/22 Rx albuterol sulfate 90 mcg/actuation 2 puff inhalation Q4H PRN asthma 01/30/22 04/18/22 Rx aerosol inhaler #8.5 grams levothyroxine 50 mcg tablet 50 mcg PO QDAY #90 tabs 01/31/22 04/18/22 Rx metformin 850 mg tablet 850 mg PO QDAY #90 tabs 02/06/22 04/18/22 Rx spironolactone 100 mg tablet 200 mg PO QAM 04/10/22 04/18/22 History propranolol 20 mg tablet 10 mg PO BID #30 tabs 04/12/22 04/18/22 Rx ondansetron 4 mg disintegrating 4 mg PO Q6H PRN nausea and 04/18/22 04/18/22 Rx tablet vomiting #20 tabs trazodone 50 mg tablet 50 mg PO QHS PRN insomnia #30 tabs 04/18/22 04/18/22 Rx furosemide 80 mg tablet 80 mg PO QAM #90 tabs 05/30/22 Rx midodrine 10 mg tablet 10 mg PO TID #90 tabs 05/30/22 Rx blood sugar diagnostic (OneTouch #100 ea 06/01/22 Rx Verio test strips) Allergies Allergy/AdvReac Type Severity Reaction Status Date / Time Sulfa (Sulfonamide Allergy Severe SWELLING Verified 06/22/22 10:38 Antibiotics) [SULFA (SULFONAMIDE ANTIBIOTICS)] NSAIDS (Non-Steroidal AdvReac Mild STOMACH Verified 06/22/22 10:38 Anti-Inflamma ULCERS [NSAIDS (NON-STEROIDAL ANTI-INFLAMMA] EXAM Constitutional Vitals: Temp Pulse Resp BP Pulse Ox O2 Del Method 36.1 C 86 16 100/69 98 Room Air 06/22/22 10:35 06/22/22 13:31 06/22/22 13:31 06/22/22 13:31 06/22/22 13:31 06/22/22 10:35 General appearance: cooperative and no acute distress Head Head exam: Present atraumatic and normocephalic Eye Eye exam: Present EOMI and PERRL ENT ENT exam: Present mucous membranes moist, normal exam and normal external ear exam Neck Neck exam: Present normal inspection; Absent lymphadenopathy, tenderness or thyromegaly Respiratory Respiratory exam: Absent accessory muscle use, respiratory distress or wheezes Cardiovascular Cardiovascular exam: Present normal rate and rhythm; Absent JVD GI/Abdominal GI/Abdominal exam: Present normal bowel sounds, soft, distended and organomegaly; Absent tenderness Additional comments: Caput medusae Extremities Exam Extremities exam: Present full ROM, normal capillary refill and normal inspection; Absent tenderness Neurological Exam Neurological exam: Present alert, CN II-XII intact and oriented X3; Absent motor sensory deficit Psychiatric Psychiatric exam: Present normal affect and normal mood; Absent anxious or depressed Skin Skin exam: Present dry and intact DATA Data Completed and Pending Labs: Labs from last 24 hours 06/22/22 06/22/22 06/22/22 10:56 10:50 10:50 WBC RBC Hgb Hct POC Hct 36.0 MCV MCH MCHC RDW Plt Count MPV Immature Gran % (Auto) Neut % (Auto) Lymph % (Auto) Wood % (Auto) Eos % (Auto) Baso % (Auto) Lymph # (Auto) Wood # (Auto) Eos # (Auto) Baso # (Auto) Immature Gran # Absolute Neutrophils POC Sodium 118 L* Sodium 119 L* POC Potassium 6.1 H* Potassium 6.3 H* POC Chloride 89 L Chloride 85 L Carbon Dioxide 20 L POC Total CO2 25.0 Anion Gap 14.0 POC BUN 30 H BUN 31 H Creatinine 0.8 POC Creatinine 0.9 GFR Calculation 77 Glucose 190 H POC Glucose 187 H Osmolality 267 L Calcium 9.9 POC WB Ioniz Calcium 1.22 Magnesium Total Bilirubin Direct Bilirubin AST ALT Alkaline Phosphatase Total Protein Albumin Globulin 06/22/22 06/22/22 10:50 10:50 WBC 6.1 RBC 3.79 Hgb 12.0 Hct 34.3 POC Hct MCV 90.5 MCH 31.7 MCHC 35.0 RDW 15.0 H Plt Count 182 MPV 9.4 Immature Gran % (Auto) 1.1 H Neut % (Auto) 78.8 H Lymph % (Auto) 4.2 L Wood % (Auto) 12.7 H Eos % (Auto) 2.1 Baso % (Auto) 1.1 Lymph # (Auto) 0.26 L Wood # (Auto) 0.78 Eos # (Auto) 0.13 Baso # (Auto) 0.07 Immature Gran # 0.07 H Absolute Neutrophils 4.83 POC Sodium Sodium POC Potassium Potassium POC Chloride Chloride Carbon Dioxide POC Total CO2 Anion Gap POC BUN BUN Creatinine POC Creatinine GFR Calculation Glucose POC Glucose Osmolality Calcium POC WB Ioniz Calcium Magnesium 2.0 Total Bilirubin 1.6 H Direct Bilirubin 0.4 H AST 72 H ALT 47 H Alkaline Phosphatase 104 Total Protein 6.7 Albumin 3.8 Globulin 2.9 A/P Assessment and plan (1) Cirrhosis of liver with ascites: Status: Acute (2) Diabetes mellitus, type II: Status: Chronic Qualifiers: Diabetes mellitus complication status: with neurologic complications Diabetes mellitus complication detail: with unspecified neuropathy Diabetes m ellitus longwall headgate operator insulin use: without prison use Qualified Code(s): E11.40 - Type 2 diabetes mellitus with diabetic neuropathy, unspecified (3) Hyperkalemia: Status: Chronic (4) Hypothyroidism: Status: Chronic Qualifiers: Hypothyroidism type: acquired Qualified Code(s): E03.9 - Hypothyroidism, unspecified (5) Hyponatremia: Status: Acute Narrative A/P Narrative: Assessment and Plans: 1. Hyponatremia: Inpatient med surg telemetry Discontinue Lasix Discontinue Spironolactone s/p 1L NS bolus in the ED, will then saline lock NaCl 1mg PO TID BMP q6hr to trend serum sodium level, goal of correction 8-10 points in the first 24 hour to avoid overcorrection with associated SENIOR NUCLEAR MEDICINE TECHNOLOGIST consequences such as Central Pontine Myelinolysis 2. Hyperkalemia: Discontinue Spironolactone Discontinue potassium chloride oral replacement Calcium gluconate Regular insulin with Dextrose Kayexalate BMP q6hr to trend serum potassium level 3. T2DM: HgA1c Hold Metformin Insulin Lispro SSI AC HS Accu Check AC HS Hypoglycemia protocol Diabetic diet 4. Non alcoholic cirrhosis with ascites: s/p paracentesis with 5L ascites fluid removed on 06/21 Follow up with hepatology team outpatient 5. Hypothyroidism: Continue oral thyroid replacement GI ppx: not currently indicated DVT ppx: Lovenox Code status: Full Prognosis: Guarded Disposition: inpatient med surg telemetry Time Spent With Patient Time: Total time spent is greater than 50% in coordination of care (as documented) at patient's floor/unit and/or counseling patient: Initial: Total time with patient: 55 - 74 minutes
[2022-06-22] MEDS ORDERED: DEXTROSE 50% 50 ML VIAL IV ONE (15:04)
[2022-06-22] MEDS ORDERED: DEXTROSE 31 GM ORAL.SUSP PO PRN (15:04)
[2022-06-22] MEDS ORDERED: DEXTROSE 50% 50 ML VIAL IV PRN (15:04)
[2022-06-22] MEDS ORDERED: traZODone HCL 50 MG TABLET PO PRN (15:04)
[2022-06-22] MEDS ORDERED: INSULIN REGULAR, HUMAN 1 UNIT/0.01 ML UNIT IV ONE (15:04)
[2022-06-22] MEDS ORDERED: CALCIUM GLUCONATE 4.65 MEQ/10 ML VIAL IV ONE (15:04)
[2022-06-22] MEDS ORDERED: DEXTROSE 50% 50 ML SYRINGE IV ONE (15:15)
[2022-06-22] MEDS ORDERED: CALCIUM GLUCONATE 9.3 MEQ in DEXTROSE 5% IN WATER 50 ML IV ONE (15:15)
[2022-06-22 15:22] LABS: Osmolality,Urine 517 mOSM/kg (80-1000)
[2022-06-22] MEDS: SODIUM CHLORIDE 1 GM TABLET PO SCH ×2 (15:45→21:28)
[2022-06-22] MEDS: 0.9 % SODIUM CHLORIDE 10 ML SYRINGE IV SCH ×2 (15:46→21:38)
[2022-06-22 15:52] LABS: Appearance,Urine CLEAR (Clear); Bilirubin,Urine Negative (Negative); Color,Urine YELLOW; Culture Indicated,Urine No; Glucose,Urine (UA) Negative (Negative); Ketones,Urine Negative (Negative); Leukocyte Esterase,Urine Negative /uL (Negative); Mucus,Urine FEW /hpf; Nitrate,Urine Negative (Negative); Protein,Urine Negative (Negative); Specific Gravity,Urine 1.016 (1.000-1.035); Urine Blood Negative (Negative); Urine Hyaline Cast 6 /lph (0-2); Urine RBC < 1 /hpf (0-3); Urine Squamous Epithelial Cell 1 /hpf (0-4); Urine WBC 1 /hpf (0-4); Urobilinogen,Urine Negative
[2022-06-22 16:03] LABS: Sodium, Urine Random < 10 mmol/L
[2022-06-22] MEDS: IPRATROPIUM/ALBUTEROL 3 ML AMPUL.NEB NEB PRN ×2 (16:42→23:27)
[2022-06-22] MEDS: INSULIN LISPRO 1 UNIT/0.01 ML UNIT SQ SCH ×2 (16:55→21:29)
[2022-06-22] MEDS ORDERED: HYDROcodone/APAP 5/325MG TABLET PO PRN (17:49)
[2022-06-22] MEDS ORDERED: ALBUTEROL SULFATE 60 PUFF INHALER INH PRN (17:49)
[2022-06-22 19:18] LABS: Blood Urea Nitrogen 30 mg/dL (8-23); Calcium 9.7 mg/dL (8.6-10.4); Carbon Dioxide 24 mmol/L (22-30); Chloride 88 mmol/L (96-108); Glomerular Filtration Rate 96; Glucose 144 mg/dL (70-105)
[2022-06-22] MEDS ORDERED: MIDODRINE 5 MG TABLET PO ONE (21:02)
[2022-06-22] MEDS: MAGNESIUM OXIDE 400 MG TABLET PO SCH (21:28)
[2022-06-22] MEDS: SENNOSIDES 1 TABLET PO SCH (21:28)
[2022-06-22] MEDS: SIMVASTATIN 10 MG TABLET PO SCH (21:28)
[2022-06-22] MEDS: DOCUSATE SODIUM 100 MG CAPSULE PO SCH (21:29)
[2022-06-22] MEDS: PROPRANOLOL 10 MG TABLET PO SCH (21:30)
[2022-06-22] MEDS: SODIUM POLYSTYRENE SULFONATE 15 GM/60 ML SUSPENSION PO SCH (21:30)
[2022-06-23] MEDS: 0.9 % SODIUM CHLORIDE 10 ML SYRINGE IV SCH ×3 (07:23→22:18)
[2022-06-23] MEDS: MIDODRINE 5 MG TABLET PO SCH ×3 (07:28→17:04)
[2022-06-23] MEDS: INSULIN LISPRO 1 UNIT/0.01 ML UNIT SQ SCH ×4 (08:10→22:17)
[2022-06-23] MEDS: ENOXAPARIN 40 MG/0.4 ML SYRINGE SQ SCH (08:10)
[2022-06-23] MEDS: DOCUSATE SODIUM 100 MG CAPSULE PO SCH ×2 (08:11→21:55)
[2022-06-23] MEDS: MAGNESIUM OXIDE 400 MG TABLET PO SCH ×2 (08:11→22:16)
[2022-06-23] MEDS: SODIUM CHLORIDE 1 GM TABLET PO SCH ×3 (08:11→22:17)
[2022-06-23] MEDS: VITAMIN B COMPLEX 1 CAPSULE PO SCH (08:11)
[2022-06-23] MEDS: ASCORBIC ACID 500 MG TABLET PO SCH (08:11)
[2022-06-23] MEDS: PROPRANOLOL 10 MG TABLET PO SCH ×2 (08:11→22:17)
[2022-06-23] MEDS: LEVOTHYROXINE 50 MCG TABLET PO SCH (08:11)
[2022-06-23] MEDS: FERROUS SULFATE 325 MG TABLET PO SCH (08:11)
[2022-06-23 08:54] LABS: Blood Urea Nitrogen 26 mg/dL (8-23); Calcium 9.3 mg/dL (8.6-10.4); Carbon Dioxide 18 mmol/L (22-30); Chloride 88 mmol/L (96-108); Glomerular Filtration Rate 91; Glucose 163 mg/dL (70-105)
[2022-06-23 08:58] LABS: Estimated Average Glucose(eAG) 146 mg/dL; Hemoglobin A1C 6.7 % Hgb (4.0-6.0)
[2022-06-23] MEDS: SODIUM POLYSTYRENE SULFONATE 15 GM/60 ML SUSPENSION PO SCH (09:54)
[2022-06-23 13:49] LABS: Blood Urea Nitrogen 25 mg/dL (8-23); Calcium 8.5 mg/dL (8.6-10.4); Carbon Dioxide 19 mmol/L (22-30); Chloride 84 mmol/L (96-108); Glomerular Filtration Rate 96; Glucose 298 mg/dL (70-105)
[2022-06-23] MEDS ORDERED: SODIUM CHLORIDE 3 % 500 ML IV ONE (13:54)
--- NOTE | 2022-06-23 14:28 | Internal Med Progress Note ---
SUBJECTIVE Subjective Patient information: Note initiated : 06/23/22 at 2:24 pm Service Date, if different from initiated Date: [] Patient: Maryam Cruz a 66 y/o F admitted on 06/22/22 for Low Sodium Levels. Chief Complaint: [] Interval history: Ms. Cruz is a 66 year old F history of nonalcoholic cirrhosis, type 2 diabetes, hypothyroidism, presenting with lab abnormalities. She was being followed with [facility] and hepatology team and as part of the routine work-up she received weekly lab checks. Last week she was told that her serum sodium level was at 121 and that she should stop taking her Lasix and spironolactone. She still took her potassium chloride supplement. She received paracentesis with 5 L ascitic fluid removed yesterday 06/21, and a repeat lab check indicated her serum sodium level was 119 and her potassium level was 6.1, and she was told to come to ED for further evaluations. A repeat lab checks in the ED today showing a serum sodium level of 119 and potassium level 6.3. EKG did not show any EKG changes associated with hyperkalemia. 1 L normal saline bolus was being given in the ED. Admission request is called for hyponatremia and hypokalemia. 06/23: Latest serum sodium level 116, potassium level 4.0. Patient is coming of abdominal distention. She is able to have a bowel movement and it helps with her abdominal distention. She is complaining of insomnia last night though. She is also complaining of cough. For hyponatremia, will continue sodium chloride 1 g p.o. 3 times daily, and will add hypertonic saline running at 30 cc/h. We will continue BMP every 6 hours to trend serum sodium level with goal of corrections 8-10 points in the first 24 hours to avoid overcorrection's with TECHNICAL ASSISTANT consequences such as central pontine myelinolysis. Constitutional Vitals: Vital Signs Temp Pulse Resp BP Pulse Ox O2 Del Method 36.8 C 101 H 18 99/69 98 Room Air 06/23/22 11:57 06/23/22 11:57 06/23/22 11:57 06/23/22 11:57 06/23/22 11:57 06/23/22 11:57 Period Temp Pulse Resp BP Sys/Tan Pulse Ox O2 Del Method O2 Flow Rate Last 24 Hr 36.2 C-37.0 C 84-109 14-18 92-116/60-87 95-100 Room Air-Room Air Intake and Output 06/23/22 06/23/22 06/23/22 03:59 11:59 19:59 Intake Total 1537 680 Output Total 850 450 Balance 687 230 Weight 78.063 kg 78.063 kg Patient Weight 06/24/22 03:59 Weight 78.063 kg Intake & Output: Intake & Output 06/23/22 06/23/22 06/23/22 03:59 11:59 19:59 Intake Total 1537 680 Output Total 850 450 Balance 687 230 Weight 78.063 kg 78.063 kg Intake: Oral 1537 680 Output: Void Amount 850 450 Other: Meal Breakfast Percent of Meal Consumed 100% Feeding Ability Independent Urine Appearance Clear Clear Urine Color Yellow Yellow Urine Odor Normal Stool Size Moderate Stool Color Brown Stool Consistency Soft # Voids 1 # Bowel Movements 1 Head Head exam: Present atraumatic and normal inspection Eye Eye exam: Present normal appearance ENT ENT exam: Present mucous membranes moist, normal exam and normal external ear exam Neck Neck exam: Present normal inspection Respiratory Respiratory exam: Present normal respiratory exam Cardiovascular Cardiovascular exam: Present normal rate and rhythm GI/Abdominal GI/Abdominal exam: Present distended and organomegaly; Absent tenderness Back Exam Back exam: Present normal inspection Neurological Exam Neurological exam: Present alert and oriented X3 Skin Skin exam: Present intact and warm OBJ DATA Labs 06/22/22 10:50 06/23/22 12:05 Labs: Abnormal Lab Results 06/23/22 06/23/22 06/23/22 12:05 05:35 05:35 RDW Immature Gran % (Auto) Neut % (Auto) Lymph % (Auto) Dickens % (Auto) Lymph # (Auto) Immature Gran # POC Sodium Sodium 116 L* 121 L POC Potassium Potassium POC Chloride Chloride 84 L 88 L Carbon Dioxide 19 L 18 L POC BUN BUN 25 H 26 H Glucose 298 H 163 H POC Glucose Hemoglobin A1c 6.7 H Osmolality Calcium 8.5 L Total Bilirubin Direct Bilirubin AST ALT Hyaline Casts Urine Mucus 06/22/22 06/22/22 06/22/22 17:52 13:40 10:56 RDW Immature Gran % (Auto) Neut % (Auto) Lymph % (Auto) Dickens % (Auto) Lymph # (Auto) Immature Gran # POC Sodium 118 L* Sodium 120 L POC Potassium 6.1 H* Potassium POC Chloride 89 L Chloride 88 L Carbon Dioxide POC BUN 30 H BUN 30 H Glucose 144 H POC Glucose 187 H Hemoglobin A1c Osmolality Calcium Total Bilirubin Direct Bilirubin AST ALT Hyaline Casts 6 H Urine Mucus Few A 06/22/22 06/22/22 06/22/22 10:50 10:50 10:50 RDW Immature Gran % (Auto) Neut % (Auto) Lymph % (Auto) Dickens % (Auto) Lymph # (Auto) Immature Gran # POC Sodium Sodium 119 L* POC Potassium Potassium 6.3 H* POC Chloride Chloride 85 L Carbon Dioxide 20 L POC BUN BUN 31 H Glucose 190 H POC Glucose Hemoglobin A1c Osmolality 267 L Calcium Total Bilirubin 1.6 H Direct Bilirubin 0.4 H AST 72 H ALT 47 H Hyaline Casts Urine Mucus 06/22/22 10:50 RDW 15.0 H Immature Gran % (Auto) 1.1 H Neut % (Auto) 78.8 H Lymph % (Auto) 4.2 L Dickens % (Auto) 12.7 H Lymph # (Auto) 0.26 L Immature Gran # 0.07 H POC Sodium Sodium POC Potassium Potassium POC Chloride Chloride Carbon Dioxide POC BUN BUN Glucose POC Glucose Hemoglobin A1c Osmolality Calcium Total Bilirubin Direct Bilirubin AST ALT Hyaline Casts Urine Mucus Meds: Medications Hydrocodone Bitart/Acetaminophen (Hydrocodone/Apap 5/325mg Tablet) 1 tab PO BID PRN; Protocol PRN Reason: migraine headache Albuterol Sulfate (Albuterol Sulfate 60 Puff Inhaler) 2 puff INH Q4HP PRN PRN Reason: asthma Albuterol/Ipratropium (Ipratropium/Albuterol 3 Ml Ampul.Neb) 3 ml NEB Q4HRT PRN PRN Reason: Wheezing Last Admin: 06/22/22 23:27 Dose: 3 ml Ascorbic Acid (Ascorbic Acid 500 Mg Tablet) 500 mg PO QDAY SHARRI Last Admin: 06/23/22 08:11 Dose: 500 mg Dextrose (Dextrose 50% 50 Ml Vial) 0 ml IV UD PRN PRN Reason: Per Sliding Scale Diagnostic Test (Pha) (Accu-Chek 1 Each Strip) 1 each FS ACHS [facility] Last Admin: 06/23/22 11:56 Dose: 1 each Docusate Sodium (Docusate Sodium 100 Mg Capsule) 100 mg PO BID SHARRI Last Admin: 06/23/22 08:11 Dose: 100 mg Enoxaparin Sodium (Enoxaparin 40 Mg/0.4 Ml Syringe) 40 mg SQ DAILY [facility] Last Admin: 06/23/22 08:10 Dose: 40 mg Ferrous Sulfate (Ferrous Sulfate 325 Mg Tablet) 325 mg PO QDAY [facility] Last Admin: 06/23/22 08:11 Dose: 325 mg Glucose (Dextrose 31 Gm Oral.Susp) 15 gm PO PRN PRN PRN Reason: Hypoglycemia Guaifenesin (Guaifenesin/Dextromethorphan 5ml Ud Cup) 10 ml PO Q4HP PRN PRN Reason: Cough Sodium Chloride (Sodium Chloride 3%) 500 mls @ 30 mls/hr IV ONCE ONE Stop: 06/24/22 06:33 Insulin Human Lispro (Insulin Lispro 1 Unit/0.01 Ml Unit) 0 unit SQ ACHS [facility]; Protocol Last Admin: 06/23/22 12:01 Dose: 4 unit Levothyroxine Sodium (Levothyroxine 50 Mcg Tablet) 50 mcg PO QDAY [facility] Last Admin: 06/23/22 08:11 Dose: 50 mcg Magnesium Oxide (Magnesium Oxide 400 Mg Tablet) 400 mg PO BID [facility] Last Admin: 06/23/22 08:11 Dose: 400 mg Midodrine (Midodrine 5 Mg Tablet) 10 mg PO TID@0800,1200,1700 [facility] Last Admin: 06/23/22 12:01 Dose: 10 mg Ondansetron HCl (Ondansetron 4 Mg/2 Ml Vial) 4 mg IV Q6HP PRN PRN Reason: Nausea And Vomiting Apremilast [Otezla] (30 Mg Tablet) 1 dose PO BID [facility] Last Admin: 06/23/22 08:12 Dose: 1 dose Propranolol HCl (Propranolol 10 Mg Tablet) 10 mg PO BID [facility] Last Admin: 06/23/22 08:11 Dose: 10 mg Senna (Sennosides 1 Tablet) 2 tab PO HS [facility] Last Admin: 06/22/22 21:28 Dose: 2 tab Simvastatin (Simvastatin 10 Mg Tablet) 10 mg PO HS [facility] Last Admin: 06/22/22 21:28 Dose: 10 mg Sodium Chloride (0.9 % Sodium Chloride 10 Ml Syringe) 10 ml IV Q8 [facility] Last Admin: 06/23/22 07:23 Dose: 10 ml Sodium Chloride (Sodium Chloride 1 Gm Tablet) 1 gm PO TID [facility] Last Admin: 06/23/22 08:11 Dose: 1 gm Trazodone HCl (Trazodone Hcl 50 Mg Tablet) 25 mg PO HSP PRN PRN Reason: Insomnia Vitamin B Complex (Vitamin B Complex 1 Capsule) 1 cap PO DAILY [facility] Last Admin: 06/23/22 08:11 Dose: 1 cap A/P Assessment and plan (1) Cirrhosis of liver with ascites: Status: Acute (2) Diabetes mellitus, type II: Status: Chronic Qualifiers: Diabetes mellitus complication status: with neurologic complications Diabetes mellitus complication detail: with unspecified neuropathy Diabetes mellitus intermediate designer insulin use: without jail use Qualified Code(s): E11.40 - Type 2 diabetes mellitus with diabetic neuropathy, unspecified (3) Hyperkalemia: Status: Chronic (4) Hypothyroidism: Status: Chronic Qualifiers: Hypothyroidism type: acquired Qualified Code(s): E03.9 - Hypothyroidism, unspecified (5) Hyponatremia: Status: Acute Narrative A/P Narrative: Assessment and Plans: 1. Hyponatremia: Inpatient med surg telemetry Discontinue Lasix Discontinue Spironolactone s/p 1L NS bolus in the ED, will then saline lock NaCl 1mg PO TID 3% Saline @30cc/hr BMP q6hr to trend serum sodium level, goal of correction 8-10 points in the first 24 hour to avoid overcorrection with associated TECHNICAL ASSISTANT consequences such as Central Pontine Myelinolysis 2. Hyperkalemia: RESOLVED Discontinue Spironolactone Discontinue potassium chloride oral replacement s/p Calcium gluconate s/p Regular insulin with Dextrose s/p Kayexalate BMP q6hr to trend serum potassium level 3. T2DM: HgA1c 6.7 Hold Metformin Insulin Lispro SSI AC HS Accu Check AC HS Hypoglycemia protocol Diabetic diet 4. Non alcoholic cirrhosis with ascites: s/p paracentesis with 5L ascites fluid removed on 06/21 Follow up with hepatology team outpatient 5. Hypothyroidism: Continue oral thyroid replacement GI ppx: not currently indicated DVT ppx: Lovenox Code status: Full Prognosis: Guarded Disposition: inpatient med surg telemetry Time Spent With Patient Time: Total time spent is greater than 50% in coordination of care (as documented) at patient's floor/unit and/or counseling patient: Subsequent: Total time with patient: 35 - 49 minutes QUALITY VTE Deep Vein Thrombosis/Pulmonary Embolism Present on Admission: No
[2022-06-23] MEDS: guaiFENesin/DEXTROMETHORPHAN 5ML UD CUP PO PRN ×2 (14:47→22:17)
[2022-06-23] MEDS: ONDANSETRON 4 MG/2 ML VIAL IV PRN (17:04)
[2022-06-23 19:07] LABS: Blood Urea Nitrogen 25 mg/dL (8-23); Calcium 8.5 mg/dL (8.6-10.4); Carbon Dioxide 21 mmol/L (22-30); Chloride 86 mmol/L (96-108); Glomerular Filtration Rate 91; Glucose 280 mg/dL (70-105)
[2022-06-23] MEDS: SENNOSIDES 1 TABLET PO SCH (21:56)
[2022-06-23] MEDS: SIMVASTATIN 10 MG TABLET PO SCH (22:16)
[2022-06-23] MEDS: ZOLPIDEM 5 MG TABLET PO PRN (22:17)
[2022-06-24 01:52] LABS: Blood Urea Nitrogen 25 mg/dL (8-23); Carbon Dioxide 21 mmol/L (22-30); Chloride 90 mmol/L (96-108); Glomerular Filtration Rate 96; Glucose 160 mg/dL (70-105)
[2022-06-24] MEDS: 0.9 % SODIUM CHLORIDE 10 ML SYRINGE IV SCH ×3 (05:50→21:30)
[2022-06-24] MEDS: INSULIN LISPRO 1 UNIT/0.01 ML UNIT SQ SCH ×4 (07:30→21:29)
[2022-06-24] MEDS: MIDODRINE 5 MG TABLET PO SCH ×3 (07:31→17:38)
[2022-06-24] MEDS: ASCORBIC ACID 500 MG TABLET PO SCH (08:06)
[2022-06-24] MEDS: PROPRANOLOL 10 MG TABLET PO SCH ×2 (08:06→21:27)
[2022-06-24] MEDS: FERROUS SULFATE 325 MG TABLET PO SCH (08:06)
[2022-06-24] MEDS: LEVOTHYROXINE 50 MCG TABLET PO SCH (08:06)
[2022-06-24] MEDS: VITAMIN B COMPLEX 1 CAPSULE PO SCH (09:17)
[2022-06-24] MEDS: ENOXAPARIN 40 MG/0.4 ML SYRINGE SQ SCH (09:18)
[2022-06-24] MEDS: MAGNESIUM OXIDE 400 MG TABLET PO SCH ×2 (09:18→21:27)
[2022-06-24] MEDS: DOCUSATE SODIUM 100 MG CAPSULE PO SCH ×2 (09:18→21:26)
[2022-06-24] MEDS: SODIUM CHLORIDE 1 GM TABLET PO SCH ×3 (09:18→21:27)
[2022-06-24 09:40] LABS: Blood Urea Nitrogen 22 mg/dL (8-23); Calcium 8.1 mg/dL (8.6-10.4); Carbon Dioxide 20 mmol/L (22-30); Chloride 90 mmol/L (96-108); Glomerular Filtration Rate 102; Glucose 124 mg/dL (70-105)
[2022-06-24] MEDS ORDERED: SODIUM CHLORIDE 3 % 500 ML IV ONE (10:47)
--- NOTE | 2022-06-24 12:17 | Internal Med Progress Note ---
SUBJECTIVE Subjective Patient information: Note initiated : 06/24/22 at 12:14 pm Service Date, if different from initiated Date: [] Patient: Maryam Cruz a 66 y/o F admitted on 06/22/22 for Low Sodium Levels. Chief Complaint: [] Interval history: Ms. Cruz is a 66 year old F history of nonalcoholic cirrhosis, type 2 diabetes, hypothyroidism, presenting with lab abnormalities. She was being followed with [facility] and hepatology team and as part of the routine work-up she received weekly lab checks. Last week she was told that her serum sodium level was at 121 and that she should stop taking her Lasix and spironolactone. She still took her potassium chloride supplement. She received paracentesis with 5 L ascitic fluid removed yesterday 06/21, and a repeat lab check indicated her serum sodium level was 119 and her potassium level was 6.1, and she was told to come to ED for further evaluations. A repeat lab checks in the ED today showing a serum sodium level of 119 and potassium level 6.3. EKG did not show any EKG changes associated with hyperkalemia. 1 L normal saline bolus was being given in the ED. Admission request is called for hyponatremia and hypokalemia. 06/23: Latest serum sodium level 116, potassium level 4.0. Patient is coming of abdominal distention. She is able to have a bowel movement and it helps with her abdominal distention. She is complaining of insomnia last night though. She is also complaining of cough. For hyponatremia, will continue sodium chloride 1 g p.o. 3 times daily, and will add hypertonic saline running at 30 cc/h. We will continue BMP every 6 hours to trend serum sodium level with goal of corrections 8-10 points in the first 24 hours to avoid overcorrection's with EDI ARCHITECT consequences such as central pontine myelinolysis. 06/24: Serum sodium level as low as 115 yesterday afternoon, so 3% hypertonic saline infusion at 30 cc/h was initiated. Sodium chloride 1 g p.o. [address] times daily also in place. This morning her serum sodium level improved to 119. Potassium level 4.1. Patient had a good sleep last night denies having insomnia and she also stated that Robitussin helps with her cough. She is having mild abdominal distention's. Continue 3% hypertonic saline infusion at 30 cc/h as well as sodium chloride 1 g p.o. 3 times daily for high high pole natremia while monitoring serum sodium level with BMP every 6. Goal of corrections 8-10 points in the first 24 hours to avoid overcorrection's with EDI ARCHITECT consequences such as central pontine myelinolysis. Constitutional Vitals: Vital Signs Temp Pulse Resp BP Pulse Ox O2 Del Method 36.1 C 74 12 90/60 99 Room Air 06/24/22 07:40 06/24/22 07:40 06/24/22 07:40 06/24/22 07:40 06/24/22 07:40 06/24/22 07:40 Period Temp Pulse Resp BP Sys/Tan Pulse Ox O2 Del Method O2 Flow Rate Last 24 Hr 36.1 C-36.8 C 74-98 12-18 90-109/60-78 96-100 Room Air-Room Air Intake and Output 06/24/22 06/24/22 06/24/22 03:59 11:59 19:59 Intake Total 240 360 Output Total 375 Balance 240 -15 Weight 80.513 kg Intake & Output: Intake & Output 06/24/22 06/24/22 06/24/22 03:59 11:59 19:59 Intake Total 240 360 Output Total 375 Balance 240 -15 Weight 80.513 kg Intake: Oral 240 360 Output: Void Amount 375 Other: Urine Appearance Clear Urine Color Yellow Dark Yellow Urine Odor Normal Head Head exam: Present atraumatic and normal inspection Eye Eye exam: Present normal appearance ENT ENT exam: Present mucous membranes moist, normal exam and normal external ear exam Neck Neck exam: Present normal inspection Respiratory Respiratory exam: Present normal respiratory exam Cardiovascular Cardiovascular exam: Present normal rate and rhythm GI/Abdominal GI/Abdominal exam: Present distended and organomegaly Back Exam Back exam: Present normal inspection Neurological Exam Neurological exam: Present alert and oriented X3 Skin Skin exam: Present intact and warm OBJ DATA Labs 06/22/22 10:50 06/24/22 06:46 Labs: Abnormal Lab Results 06/24/22 06/24/22 06/23/22 06:46 00:51 17:50 RDW Immature Gran % (Auto) Neut % (Auto) Lymph % (Auto) [place] % (Auto) Lymph # (Auto) Immature Gran # POC Sodium Sodium 119 L* 118 L* 115 L* POC Potassium Potassium POC Chloride Chloride 90 L 90 L 86 L Carbon Dioxide 20 L 21 L 21 L Anion Gap 7.0 L POC BUN BUN 25 H 25 H Creatinine 0.5 L Glucose 124 H 160 H 280 H POC Glucose Hemoglobin A1c Osmolality Calcium 8.1 L 8.0 L 8.5 L Total Bilirubin Direct Bilirubin AST ALT Hyaline Casts Urine Mucus 06/23/22 06/23/22 06/23/22 12:05 05:35 05:35 RDW Immature Gran % (Auto) Neut % (Auto) Lymph % (Auto) [place] % (Auto) Lymph # (Auto) Immature Gran # POC Sodium Sodium 116 L* 121 L POC Potassium Potassium POC Chloride Chloride 84 L 88 L Carbon Dioxide 19 L 18 L Anion Gap POC BUN BUN 25 H 26 H Creatinine Glucose 298 H 163 H POC Glucose Hemoglobin A1c 6.7 H Osmolality Calcium 8.5 L Total Bilirubin Direct Bilirubin AST ALT Hyaline Casts Urine Mucus 06/22/22 06/22/22 06/22/22 17:52 13:40 10:56 RDW Immature Gran % (Auto) Neut % (Auto) Lymph % (Auto) [place] % (Auto) Lymph # (Auto) Immature Gran # POC Sodium 118 L* Sodium 120 L POC Potassium 6.1 H* Potassium POC Chloride 89 L Chloride 88 L Carbon Dioxide Anion Gap POC BUN 30 H BUN 30 H Creatinine Glucose 144 H POC Glucose 187 H Hemoglobin A1c Osmolality Calcium Total Bilirubin Direct Bilirubin AST ALT Hyaline Casts 6 H Urine Mucus Few A 06/22/22 06/22/22 06/22/22 10:50 10:50 10:50 RDW Immature Gran % (Auto) Neut % (Auto) Lymph % (Auto) [place] % (Auto) Lymph # (Auto) Immature Gran # POC Sodium Sodium 119 L* POC Potassium Potassium 6.3 H* POC Chloride Chloride 85 L Carbon Dioxide 20 L Anion Gap POC BUN BUN 31 H Creatinine Glucose 190 H POC Glucose Hemoglobin A1c Osmolality 267 L Calcium Total Bilirubin 1.6 H Direct Bilirubin 0.4 H AST 72 H ALT 47 H Hyaline Casts Urine Mucus 06/22/22 10:50 RDW 15.0 H Immature Gran % (Auto) 1.1 H Neut % (Auto) 78.8 H Lymph % (Auto) 4.2 L [place] % (Auto) 12.7 H Lymph # (Auto) 0.26 L Immature Gran # 0.07 H POC Sodium Sodium POC Potassium Potassium POC Chloride Chloride Carbon Dioxide Anion Gap POC BUN BUN Creatinine Glucose POC Glucose Hemoglobin A1c Osmolality Calcium Total Bilirubin Direct Bilirubin AST ALT Hyaline Casts Urine Mucus Meds: Medications Hydrocodone Bitart/Acetaminophen (Hydrocodone/Apap 5/325mg Tablet) 1 tab PO BID PRN; Protocol PRN Reason: migraine headache Albuterol Sulfate (Albuterol Sulfate 60 Puff Inhaler) 2 puff INH Q4HP PRN PRN Reason: asthma Albuterol/Ipratropium (Ipratropium/Albuterol 3 Ml Ampul.Neb) 3 ml NEB Q4HRT PRN PRN Reason: Wheezing Last Admin: 06/22/22 23:27 Dose: 3 ml Ascorbic Acid (Ascorbic Acid 500 Mg Tablet) 500 mg PO QDAY [facility] Last Admin: 06/24/22 08:06 Dose: 500 mg Dextrose (Dextrose 50% 50 Ml Vial) 0 ml IV UD PRN PRN Reason: Per Sliding Scale Diagnostic Test (Pha) (Accu-Chek 1 Each Strip) 1 each FS [facility] Last Admin: 06/24/22 11:38 Dose: 1 each Docusate Sodium (Docusate Sodium 100 Mg Capsule) 100 mg PO BID [facility] Last Admin: 06/24/22 09:18 Dose: 100 mg Enoxaparin Sodium (Enoxaparin 40 Mg/0.4 Ml Syringe) 40 mg SQ DAILY [facility] Last Admin: 06/24/22 09:18 Dose: 40 mg Ferrous Sulfate (Ferrous Sulfate 325 Mg Tablet) 325 mg PO QDAY [facility] Last Admin: 06/24/22 08:06 Dose: 325 mg Glucose (Dextrose 31 Gm Oral.Susp) 15 gm PO PRN PRN PRN Reason: Hypoglycemia Guaifenesin (Guaifenesin/Dextromethorphan 5ml Ud Cup) 10 ml PO Q4HP PRN PRN Reason: Cough Last Admin: 06/23/22 22:17 Dose: 10 ml Sodium Chloride (Sodium Chloride 3%) 500 mls @ 30 mls/hr IV ONCE ONE Stop: 06/25/22 03:26 Insulin Human Lispro (Insulin Lispro 1 Unit/0.01 Ml Unit) 0 unit SQ ACHS [facility]; Protocol Last Admin: 06/24/22 07:30 Dose: Not Given Levothyroxine Sodium (Levothyroxine 50 Mcg Tablet) 50 mcg PO QDAY [facility] Last Admin: 06/24/22 08:06 Dose: 50 mcg Magnesium Oxide (Magnesium Oxide 400 Mg Tablet) 400 mg PO BID [facility] Last Admin: 06/24/22 09:18 Dose: 400 mg Midodrine (Midodrine 5 Mg Tablet) 10 mg PO TID@0800,1200,1700 [facility] Last Admin: 06/24/22 07:31 Dose: 10 mg Ondansetron HCl (Ondansetron 4 Mg/2 Ml Vial) 4 mg IV Q6HP PRN PRN Reason: Nausea And Vomiting Last Admin: 06/23/22 17:04 Dose: 4 mg Apremilast [Otezla] (30 Mg Tablet) 1 dose PO BID [facility] Last Admin: 06/24/22 09:19 Dose: 1 dose Propranolol HCl (Propranolol 10 Mg Tablet) 10 mg PO BID [facility] Last Admin: 06/24/22 08:06 Dose: 10 mg Senna (Sennosides 1 Tablet) 2 tab PO [facility] Last Admin: 06/23/22 21:56 Dose: Not Given Simvastatin (Simvastatin 10 Mg Tablet) 10 mg PO [facility] Last Admin: 06/23/22 22:16 Dose: 10 mg Sodium Chloride (0.9 % Sodium Chloride 10 Ml Syringe) 10 ml IV Q8 [facility] Last Admin: 06/24/22 05:50 Dose: Not Given Sodium Chloride (Sodium Chloride 1 Gm Tablet) 1 gm PO TID [facility] Last Admin: 06/24/22 09:18 Dose: 1 gm Vitamin B Complex (Vitamin B Complex 1 Capsule) 1 cap PO DAILY [facility] Last Admin: 06/24/22 09:17 Dose: 1 cap Zolpidem Tartrate (Zolpidem 5 Mg Tablet) 5 mg PO HSP PRN PRN Reason: Insomnia Last Admin: 06/23/22 22:17 Dose: 5 mg A/P Assessment and plan (1) Cirrhosis of liver with ascites: Status: Acute (2) Diabetes mellitus, type II: Status: Chronic Qualifiers: Diabetes mellitus complication status: with neurologic complications Diabetes mellitus complication detail: with unspecified neuropathy Diabetes mellitus fdc insulin use: without fdc use Qualified Code(s): E11.40 - Type 2 diabetes mellitus with diabetic neuropathy, unspecified (3) Hyperkalemia: Status: Chronic (4) Hypothyroidism: Status: Chronic Qualifiers: Hypothyroidism type: acquired Qualified Code(s): E03.9 - Hypothyroidism, unspecified (5) Hyponatremia: Status: Acute Narrative A/P Narrative: Assessment and Plans: 1. Hyponatremia: Inpatient med surg telemetry Discontinue Lasix Discontinue Spironolactone s/p 1L NS bolus in the ED, will then saline lock NaCl 1mg PO TID 3% Saline @30cc/hr BMP q6hr to trend serum sodium level, goal of correction 8-10 points in the first 24 hour to avoid overcorrection with associated EDI ARCHITECT consequences such as Central Pontine Myelinolysis 2. Hyperkalemia: RESOLVED Discontinue Spironolactone Discontinue potassium chloride oral replacement s/p Calcium gluconate s/p Regular insulin with Dextrose s/p Kayexalate BMP q6hr to trend serum potassium level 3. T2DM: HgA1c 6.7 Hold Metformin Insulin Lispro SSI AC HS Accu Check AC HS Hypoglycemia protocol Diabetic diet 4. Non alcoholic cirrhosis with ascites: s/p paracentesis with 5L ascites fluid removed on 06/21 Follow up with hepatology team outpatient 5. Hypothyroidism: Continue oral thyroid replacement GI ppx: not currently indicated DVT ppx: Lovenox Code status: Full Prognosis: Guarded Disposition: inpatient med surg telemetry Time Spent With Patient Time: Total time spent is greater than 50% in coordination of care (as documented) at patient's floor/unit and/or counseling patient: Subsequent: Total time with patient: 35 - 49 minutes QUALITY VTE Deep Vein Thrombosis/Pulmonary Embolism Present on Admission: No
[2022-06-24 13:27] LABS: Blood Urea Nitrogen 21 mg/dL (8-23); Calcium 8.1 mg/dL (8.6-10.4); Carbon Dioxide 24 mmol/L (22-30); Chloride 89 mmol/L (96-108); Glomerular Filtration Rate 91; Glucose 240 mg/dL (70-105)
[2022-06-24] MEDS: guaiFENesin/DEXTROMETHORPHAN 5ML UD CUP PO PRN ×2 (14:58→21:27)
[2022-06-24 19:31] LABS: Blood Urea Nitrogen 20 mg/dL (8-23); Calcium 8.4 mg/dL (8.6-10.4); Carbon Dioxide 23 mmol/L (22-30); Chloride 88 mmol/L (96-108); Glomerular Filtration Rate 96; Glucose 197 mg/dL (70-105)
[2022-06-24] MEDS: SENNOSIDES 1 TABLET PO SCH (21:26)
[2022-06-24] MEDS: SIMVASTATIN 10 MG TABLET PO SCH (21:27)
[2022-06-24] MEDS: ZOLPIDEM 5 MG TABLET PO PRN (21:27)
[2022-06-25] MEDS: ONDANSETRON 4 MG/2 ML VIAL IV PRN (02:47)
[2022-06-25] MEDS: 0.9 % SODIUM CHLORIDE 10 ML SYRINGE IV SCH ×3 (05:57→21:06)
[2022-06-25] MEDS: INSULIN LISPRO 1 UNIT/0.01 ML UNIT SQ SCH ×4 (09:39→21:03)
[2022-06-25] MEDS: LEVOTHYROXINE 50 MCG TABLET PO SCH (09:39)
[2022-06-25] MEDS: ASCORBIC ACID 500 MG TABLET PO SCH (10:11)
[2022-06-25] MEDS: VITAMIN B COMPLEX 1 CAPSULE PO SCH (10:11)
[2022-06-25] MEDS: SODIUM CHLORIDE 1 GM TABLET PO SCH ×3 (10:11→21:05)
[2022-06-25] MEDS: MIDODRINE 5 MG TABLET PO SCH ×3 (10:11→17:43)
[2022-06-25] MEDS: MAGNESIUM OXIDE 400 MG TABLET PO SCH ×2 (10:11→21:04)
[2022-06-25] MEDS: PROPRANOLOL 10 MG TABLET PO SCH ×2 (10:12→21:04)
[2022-06-25] MEDS: FERROUS SULFATE 325 MG TABLET PO SCH (10:12)
[2022-06-25] MEDS: DOCUSATE SODIUM 100 MG CAPSULE PO SCH ×2 (10:13→21:04)
[2022-06-25] MEDS: ENOXAPARIN 40 MG/0.4 ML SYRINGE SQ SCH (10:15)
[2022-06-25 10:19] LABS: Blood Urea Nitrogen 21 mg/dL (8-23); Calcium 8.3 mg/dL (8.6-10.4); Carbon Dioxide 16 mmol/L (22-30); Chloride 93 mmol/L (96-108); Glomerular Filtration Rate 96; Glucose 210 mg/dL (70-105)
--- NOTE | 2022-06-25 10:46 | Internal Med Progress Note ---
SUBJECTIVE Subjective Patient information: Note initiated : 06/25/22 at 10:42 am Service Date, if different from initiated Date: [] Patient: Maryam Cruz a 66 y/o F admitted on 06/22/22 for Low Sodium Levels. Chief Complaint: [] Interval history: Ms. Cruz is a 66 year old F history of nonalcoholic cirrhosis, type 2 diabetes, hypothyroidism, presenting with lab abnormalities. She was being followed with [facility] and hepatology team and as part of the routine work-up she received weekly lab checks. Last week she was told that her serum sodium level was at 121 and that she should stop taking her Lasix and spironolactone. She still took her potassium chloride supplement. She received paracentesis with 5 L ascitic fluid removed yesterday 06/21, and a repeat lab check indicated her serum sodium level was 119 and her potassium level was 6.1, and she was told to come to ED for further evaluations. A repeat lab checks in the ED today showing a serum sodium level of 119 and potassium level 6.3. EKG did not show any EKG changes associated with hyperkalemia. 1 L normal saline bolus was being given in the ED. Admission request is called for hyponatremia and hypokalemia. 06/23: Latest serum sodium level 116, potassium level 4.0. Patient is coming of abdominal distention. She is able to have a bowel movement and it helps with her abdominal distention. She is complaining of insomnia last night though. She is also complaining of cough. For hyponatremia, will continue sodium chloride 1 g p.o. 3 times daily, and will add hypertonic saline running at 30 cc/h. We will continue BMP every 6 hours to trend serum sodium level with goal of corrections 8-10 points in the first 24 hours to avoid overcorrection's with [employer] consequences such as central pontine myelinolysis. 06/24: Serum sodium level as low as 115 yesterday afternoon, so 3% hypertonic saline infusion at 30 cc/h was initiated. Sodium chloride 1 g p.o. 3 times daily also in place. This morning her serum sodium level improved to 119. Potassium level 4.1. Patient had a good sleep last night denies having insomnia and she also stated that Robitussin helps with her cough. She is having mild abdominal distention's. Continue 3% hypertonic saline infusion at 30 cc/h as well as sodium chloride 1 g p.o. 3 times daily for high high pole natremia while monitoring serum sodium level with BMP every 6. Goal of corrections 8-10 points in the first 24 hours to avoid overcorrection's with [employer]PER[employer] consequences such as central pontine myelinolysis. 06/25: Latest serum sodium 119 from earlier this morning. Patient's peripheral IV site went bad so we could not continue to give 3% hypertonic saline. Patient is feeling increasing abdominal distention's but she denies having any abdominal pain and she is able to eat and have a bowel movement. Increased salt tab from 1 g to 2 g p.o. 3 times daily. Pending doing BMP to trend serum sodium level. As long as her serum sodium level does not deteriorate, it is okay to stop the hypertonic saline and rely on sodium chloride oral replacement for hyponatremia. At any point if patient is starting to complaining of uncontrollable abdominal pain or nausea vomiting and constipation which could be signs of ascites fluid pushing into her gut, would consider to preformed paracentesis earlier than next Sunday. Constitutional Vitals: Vital Signs Temp Pulse Resp BP Pulse Ox O2 Del Method 37.0 C 81 16 122/84 99 Room Air 06/25/22 08:00 06/25/22 08:00 06/25/22 08:00 06/25/22 08:00 06/25/22 08:00 06/25/22 08:00 Period Temp Pulse Resp BP Sys/Tan Pulse Ox O2 Del Method O2 Flow Rate Last 24 Hr 36.2 C-37.0 C 80-90 14-18 90-122/59-84 97-100 Room Air-Room Air Intake and Output 06/24/22 06/25/22 06/25/22 19:59 03:59 11:59 Intake Total 480 Output Total 350 450 300 Balance 130 -450 -300 Weight 81.76 kg Intake & Output: Intake & Output 06/24/22 06/25/22 06/25/22 19:59 03:59 11:59 Intake Total 480 Output Total 350 450 300 Balance 130 -450 -300 Weight 81.76 kg Intake: Oral 480 Output: Void Amount 350 450 300 Other: Meal Lunch Percent of Meal Consumed 100% Feeding Ability Independent Urine Appearance Clear Clear Clear Urine Color Bright Yellow Yellow Yellow Urine Odor Normal Normal Normal Head Head exam: Present atraumatic and normal inspection Eye Eye exam: Present normal appearance ENT ENT exam: Present mucous membranes moist, normal exam and normal external ear exam Neck Neck exam: Present normal inspection Respiratory Respiratory exam: Present normal respiratory exam Cardiovascular Cardiovascular exam: Present normal rate and rhythm GI/Abdominal GI/Abdominal exam: Present distended and organomegaly Back Exam Back exam: Present normal inspection Neurological Exam Neurological exam: Present alert and oriented X3 Skin Skin exam: Present intact and warm OBJ DATA Labs 06/22/22 10:50 06/25/22 06:07 Labs: Abnormal Lab Results 06/25/22 06/24/22 06/24/22 06:07 18:30 12:28 RDW Immature Gran % (Auto) Neut % (Auto) Lymph % (Auto) Faulk % (Auto) Lymph # (Auto) Immature Gran # POC Sodium Sodium 119 L* 121 L 118 L* POC Potassium Potassium POC Chloride Chloride 93 L 88 L 89 L Carbon Dioxide 16 L Anion Gap 5.0 L POC BUN BUN Creatinine Glucose 210 H 197 H 240 H POC Glucose Hemoglobin A1c Osmolality Calcium 8.3 L 8.4 L 8.1 L Total Bilirubin Direct Bilirubin AST ALT Hyaline Casts Urine Mucus 06/24/22 06/24/22 06/23/22 06:46 00:51 17:50 RDW Immature Gran % (Auto) Neut % (Auto) Lymph % (Auto) Faulk % (Auto) Lymph # (Auto) Immature Gran # POC Sodium Sodium 119 L* 118 L* 115 L* POC Potassium Potassium POC Chloride Chloride 90 L 90 L 86 L Carbon Dioxide 20 L 21 L 21 L Anion Gap 7.0 L POC BUN BUN 25 H 25 H Creatinine 0.5 L Glucose 124 H 160 H 280 H POC Glucose Hemoglobin A1c Osmolality Calcium 8.1 L 8.0 L 8.5 L Total Bilirubin Direct Bilirubin AST ALT Hyaline Casts Urine Mucus 06/23/22 06/23/22 06/23/22 12:05 05:35 05:35 RDW Immature Gran % (Auto) Neut % (Auto) Lymph % (Auto) Faulk % (Auto) Lymph # (Auto) Immature Gran # POC Sodium Sodium 116 L* 121 L POC Potassium Potassium POC Chloride Chloride 84 L 88 L Carbon Dioxide 19 L 18 L Anion Gap POC BUN BUN 25 H 26 H Creatinine Glucose 298 H 163 H POC Glucose Hemoglobin A1c 6.7 H Osmolality Calcium 8.5 L Total Bilirubin Direct Bilirubin AST ALT Hyaline Casts Urine Mucus 06/22/22 06/22/22 06/22/22 17:52 13:40 10:56 RDW Immature Gran % (Auto) Neut % (Auto) Lymph % (Auto) Faulk % (Auto) Lymph # (Auto) Immature Gran # POC Sodium 118 L* Sodium 120 L POC Potassium 6.1 H* Potassium POC Chloride 89 L Chloride 88 L Carbon Dioxide Anion Gap POC BUN 30 H BUN 30 H Creatinine Glucose 144 H POC Glucose 187 H Hemoglobin A1c Osmolality Calcium Total Bilirubin Direct Bilirubin AST ALT Hyaline Casts 6 H Urine Mucus Few A 06/22/22 06/22/22 06/22/22 10:50 10:50 10:50 RDW Immature Gran % (Auto) Neut % (Auto) Lymph % (Auto) Faulk % (Auto) Lymph # (Auto) Immature Gran # POC Sodium Sodium 119 L* POC Potassium Potassium 6.3 H* POC Chloride Chloride 85 L Carbon Dioxide 20 L Anion Gap POC BUN BUN 31 H Creatinine Glucose 190 H POC Glucose Hemoglobin A1c Osmolality 267 L Calcium Total Bilirubin 1.6 H Direct Bilirubin 0.4 H AST 72 H ALT 47 H Hyaline Casts Urine Mucus 06/22/22 10:50 RDW 15.0 H Immature Gran % (Auto) 1.1 H Neut % (Auto) 78.8 H Lymph % (Auto) 4.2 L Faulk % (Auto) 12.7 H Lymph # (Auto) 0.26 L Immature Gran # 0.07 H POC Sodium Sodium POC Potassium Potassium POC Chloride Chloride Carbon Dioxide Anion Gap POC BUN BUN Creatinine Glucose POC Glucose Hemoglobin A1c Osmolality Calcium Total Bilirubin Direct Bilirubin AST ALT Hyaline Casts Urine Mucus Meds: Medications Hydrocodone Bitart/Acetaminophen (Hydrocodone/Apap 5/325mg Tablet) 1 tab PO BID PRN; Protocol PRN Reason: migraine headache Albuterol Sulfate (Albuterol Sulfate 60 Puff Inhaler) 2 puff INH Q4HP PRN PRN Reason: asthma Last Admin: 06/24/22 16:20 Dose: 2 puff Albuterol/Ipratropium (Ipratropium/Albuterol 3 Ml Ampul.Neb) 3 ml NEB Q4HRT PRN PRN Reason: Wheezing Last Admin: 06/22/22 23:27 Dose: 3 ml Ascorbic Acid (Ascorbic Acid 500 Mg Tablet) 500 mg PO QDAY SHARRI Last Admin: 06/25/22 10:11 Dose: 500 mg Dextrose (Dextrose 50% 50 Ml Vial) 0 ml IV UD PRN PRN Reason: Per Sliding Scale Diagnostic Test (Pha) (Accu-Chek 1 Each Strip) 1 each FS [facility] Last Admin: 06/25/22 09:38 Dose: 1 each Docusate Sodium (Docusate Sodium 100 Mg Capsule) 100 mg PO BID [facility] Last Admin: 06/25/22 10:13 Dose: Not Given Enoxaparin Sodium (Enoxaparin 40 Mg/0.4 Ml Syringe) 40 mg SQ DAILY [facility] Last Admin: 06/25/22 10:15 Dose: 40 mg Ferrous Sulfate (Ferrous Sulfate 325 Mg Tablet) 325 mg PO QDAY [facility] Last Admin: 06/25/22 10:12 Dose: 325 mg Glucose (Dextrose 31 Gm Oral.Susp) 15 gm PO PRN PRN PRN Reason: Hypoglycemia Guaifenesin (Guaifenesin/Dextromethorphan 5ml Ud Cup) 10 ml PO Q4HP PRN PRN Reason: Cough Last Admin: 06/24/22 21:27 Dose: 10 ml Insulin Human Lispro (Insulin Lispro 1 Unit/0.01 Ml Unit) 0 unit SQ [facility]; Protocol Last Admin: 06/25/22 09:39 Dose: 2 unit Levothyroxine Sodium (Levothyroxine 50 Mcg Tablet) 50 mcg PO QDAY [facility] Last Admin: 06/25/22 09:39 Dose: 50 mcg Magnesium Oxide (Magnesium Oxide 400 Mg Tablet) 400 mg PO BID [facility] Last Admin: 06/25/22 10:11 Dose: 400 mg Midodrine (Midodrine 5 Mg Tablet) 10 mg PO TID@0800,1200,1700 [facility] Last Admin: 06/25/22 10:11 Dose: 10 mg Ondansetron HCl (Ondansetron 4 Mg/2 Ml Vial) 4 mg IV Q6HP PRN PRN Reason: Nausea And Vomiting Last Admin: 06/25/22 02:47 Dose: 4 mg Apremilast [Otezla] (30 Mg Tablet) 1 dose PO BID [facility] Last Admin: 06/25/22 10:16 Dose: 1 dose Propranolol HCl (Propranolol 10 Mg Tablet) 10 mg PO BID [facility] Last Admin: 06/25/22 10:12 Dose: 10 mg Senna (Sennosides 1 Tablet) 2 tab PO HS [facility] Last Admin: 06/24/22 21:26 Dose: 2 tab Simvastatin (Simvastatin 10 Mg Tablet) 10 mg PO HS [facility] Last Admin: 06/24/22 21:27 Dose: 10 mg Sodium Chloride (0.9 % Sodium Chloride 10 Ml Syringe) 10 ml IV Q8 [facility] Last Admin: 06/25/22 05:57 Dose: Not Given Sodium Chloride (Sodium Chloride 1 Gm Tablet) 2 gm PO TID [facility] Vitamin B Complex (Vitamin B Complex 1 Capsule) 1 cap PO DAILY [facility] Last Admin: 06/25/22 10:11 Dose: 1 cap Zolpidem Tartrate (Zolpidem 5 Mg Tablet) 5 mg PO HSP PRN PRN Reason: Insomnia Last Admin: 06/24/22 21:27 Dose: 5 mg A/P Assessment and plan (1) Cirrhosis of liver with ascites: Status: Acute (2) Diabetes mellitus, type II: Status: Chronic Qualifiers: Diabetes mellitus complication status: with neurologic complications Diabetes mellitus complication detail: with unspecified neuropathy Diabetes mellitus longterm insulin use: without long distance operator use Qualified Code(s): E11.40 - Type 2 diabetes mellitus with diabetic neuropathy, unspecified (3) Hyperkalemia: Status: Chronic (4) Hypothyroidism: Status: Chronic Qualifiers: Hypothyroidism type: acquired Qualified Code(s): E03.9 - Hypothyroidism, unspecified (5) Hyponatremia: Status: Acute Narrative A/P Narrative: Assessment and Plans: 1. Hyponatremia: Inpatient med surg telemetry Discontinue Lasix Discontinue Spironolactone Patient's peripheral IV site went bad so we could not continue to give 3% hypertonic saline Increased salt tab from 1 g to 2 g p.o. 3 times daily. Pending doing BMP to trend serum sodium level. As long as her serum sodium level does not deteriorate, it is okay to stop the hypertonic saline and rely on sodium chloride oral replacement for hyponatremia. 2. Hyperkalemia: RESOLVED Discontinue Spironolactone Discontinue potassium chloride oral replacement s/p Calcium gluconate s/p Regular insulin with Dextrose s/p Kayexalate BMP q6hr to trend serum potassium level 3. T2DM: HgA1c 6.7 Hold Metformin Insulin Lispro SSI AC HS Accu Check AC HS Hypoglycemia protocol Diabetic diet 4. Non alcoholic cirrhosis with ascites: s/p paracentesis with 5L ascites fluid removed on 06/21 At any point if patient is starting to complaining of uncontrollable abdominal pain or nausea vomiting and constipation which could be signs of ascites fluid pushing into her gut, would consider to preformed paracentesis earlier than next Sunday. Follow up with hepatology team outpatient 5. Hypothyroidism: Continue oral thyroid replacement GI ppx: not currently indicated DVT ppx: Lovenox Code status: Full Prognosis: Guarded Disposition: inpatient med surg telemetry Time Spent With Patient Time: Total time spent is greater than 50% in coordination of care (as documented) at patient's floor/unit and/or counseling patient: Subsequent: Total time with patient: 35 - 49 minutes QUALITY VTE Deep Vein Thrombosis/Pulmonary Embolism Present on Admission: No
[2022-06-25 14:24] LABS: Blood Urea Nitrogen 21 mg/dL (8-23); Calcium 8.2 mg/dL (8.6-10.4); Carbon Dioxide 20 mmol/L (22-30); Chloride 90 mmol/L (96-108); Glomerular Filtration Rate 96; Glucose 293 mg/dL (70-105)
[2022-06-25] MEDS ORDERED: ALBUMIN HUMAN IV ONE (14:41)
--- NOTE | 2022-06-25 15:55 | Ultrasound Report ---
History: Recurrent ascites from liver failure TECHNIQUE: The procedure risks were explained and the patient consented. Large volume of ascites is present throughout the abdomen and pelvis. The skin over the left lower quadrant was prepped with ChloraPrep then anesthetized with 1% lidocaine. Using ultrasound guidance a multi sidehole drainage catheter was inserted. 7.1 L of cloudy yellow fluid was removed and discarded. Most of the fluid was drained. She received intravenous albumin during the procedure. She tolerated the procedure well without complication. IMPRESSION: Successful paracentesis removing 7.1 L of fluid Interpreted and Authenticated by: Adolfo Hyatt 06/25/22
[2022-06-25] MEDS ORDERED: ALBUMIN HUMAN 12.5 GM/50 ML VIAL IV ONE (16:15)
[2022-06-25] MEDS: SENNOSIDES 1 TABLET PO SCH (21:05)
[2022-06-25] MEDS: ZOLPIDEM 5 MG TABLET PO PRN (21:05)
[2022-06-25] MEDS: SIMVASTATIN 10 MG TABLET PO SCH (21:05)
[2022-06-25 21:28] LABS: Blood Urea Nitrogen 19 mg/dL (8-23); Calcium 8.3 mg/dL (8.6-10.4); Carbon Dioxide 22 mmol/L (22-30); Chloride 91 mmol/L (96-108); Glomerular Filtration Rate 96; Glucose 198 mg/dL (70-105)
[2022-06-26] MEDS: 0.9 % SODIUM CHLORIDE 10 ML SYRINGE IV SCH ×2 (05:35→13:20)
[2022-06-26 05:46] LABS: Blood Urea Nitrogen 18 mg/dL (8-23); Calcium 8.2 mg/dL (8.6-10.4); Carbon Dioxide 21 mmol/L (22-30); Chloride 93 mmol/L (96-108); Glomerular Filtration Rate 96; Glucose 135 mg/dL (70-105)
[2022-06-26] MEDS ORDERED: ALBUMIN HUMAN 25 GM/100 ML BAG IV ONE (08:30)
[2022-06-26] MEDS: INSULIN LISPRO 1 UNIT/0.01 ML UNIT SQ SCH ×2 (08:30→11:39)
[2022-06-26 09:11] LABS: Blood Urea Nitrogen 18 mg/dL (8-23); Calcium 8.4 mg/dL (8.6-10.4); Carbon Dioxide 19 mmol/L (22-30); Chloride 93 mmol/L (96-108); Glomerular Filtration Rate 96; Glucose 128 mg/dL (70-105)
[2022-06-26] MEDS: MIDODRINE 5 MG TABLET PO SCH ×2 (10:31→11:53)
[2022-06-26] MEDS: ASCORBIC ACID 500 MG TABLET PO SCH (10:34)
[2022-06-26] MEDS: LEVOTHYROXINE 50 MCG TABLET PO SCH (10:34)
[2022-06-26] MEDS: DOCUSATE SODIUM 100 MG CAPSULE PO SCH (10:34)
[2022-06-26] MEDS: VITAMIN B COMPLEX 1 CAPSULE PO SCH (10:34)
[2022-06-26] MEDS: FERROUS SULFATE 325 MG TABLET PO SCH (10:35)
[2022-06-26] MEDS: MAGNESIUM OXIDE 400 MG TABLET PO SCH (10:35)
[2022-06-26] MEDS: SODIUM CHLORIDE 1 GM TABLET PO SCH ×2 (10:37→14:42)
[2022-06-26] MEDS: ENOXAPARIN 40 MG/0.4 ML SYRINGE SQ SCH (10:38)
[2022-06-26] MEDS: PROPRANOLOL 10 MG TABLET PO SCH (10:58)
--- NOTE | 2022-06-26 11:17 | Discharge Summary ---
Discharge Provider Provider IMPORTANT FOLLOW-UP INFORMATION FOR PCP: Patient information: Note initiated : 06/26/22 at 11:10 am Service Date, if different from initiated Date: [] Patient: Maryam Cruz 66 y/o F admitted on 06/22/22 for Low Sodium Levels. Chief Complaint: [] Date of admission: 06/22/22 14:53 Discharge date: 06/26/22 Primary care physician: Frandy Self DO Admitting clinician: Leon Cutler Attending physician on admission: Leon Cutler Consults: 06/22/22 Consult to Physician [CONS] Stat Comment: Consulting Provider: Leon Cutler Reason For Exam: Physician to Consult Attending physician on discharge: jovany rhodes md Discharging clinician: joavny rhodes md COURSE Hospital Course Hospital course: 66 yo female with WANG Cirhossis. She is being evaluated for liver transplant in [place]. She had routine lab testing which noted Na 116. Pt was asymptomatic. She was instructed to present to the hospital. Prior Hospitalist, Dr. Cutler administered hypertonic saline and then converted to oral NaCl tabs. Na improved to 122. Pt also had paracentesis for 7.1 liters. She received Albumin post paracentesis and the following day. Renal function remained stable throughout. She was discharged with Rx for three additional days NaCL supplementation and instructed to fluid restrict to 1.5 L daily and follow up as scheduled with her [employer] [facility]/Transplant clinic as scheduled. Discharge diagnosis: hyponatremia Secondary discharge diagnosis: WANG Cirrhosis Reason for admission: hyponatremia Procedures: paracentesis Time Spent with Patient Time attestation: Total time spent providing and/or coordinating discharge services: Time spent: Less than 30 minutes EXAM Constitutional Vitals: Temp Pulse Resp BP Pulse Ox O2 Del Method O2 Flow Rate 97.1 F 84 14 87/65 100 Room Air 0 06/26/22 08:00 06/26/22 08:00 06/26/22 08:00 06/26/22 08:00 06/26/22 08:00 06/26/22 08:00 06/25/22 20:14 General appearance: average body habitus and no acute distress Head Head exam: Present atraumatic ENT ENT exam: Present mucous membranes moist Respiratory Respiratory exam: Present normal respiratory exam Cardiovascular Cardiovascular exam: Present normal rate and rhythm Expanded GI/Abdominal Exam GI/Abdominal exam: Present ascites Neurological Exam Neurological exam: Present CN II-XII intact and oriented X3 Discharge Data Data Completed and Pending Labs on day of discharge: Labs from last 24 hours 06/26/22 06/26/22 06/25/22 08:07 02:46 20:34 Sodium 120 L 122 L 122 L Potassium 4.7 4.4 3.8 Chloride 93 L 93 L 91 L Carbon Dioxide 19 L 21 L 22 Anion Gap 8.0 8.0 9.0 BUN 18 18 19 Creatinine 0.6 0.6 0.6 GFR Calculation 96 96 96 Glucose 128 H 135 H 198 H Calcium 8.4 L 8.2 L 8.3 L 06/25/22 13:11 Sodium 120 L Potassium 4.5 Chloride 90 L Carbon Dioxide 20 L Anion Gap 10.0 BUN 21 Creatinine 0.6 GFR Calculation 96 Glucose 293 H Calcium 8.2 L Discharge Plan Patient/Caregiver Discharge Instructions Activity: increase activity as tolerated and resume usual activities as tolerated Diet: Low Sodium (2gm) Instructions: Hyponatremia (DC), Ascites (DC) Activity Restrictions/Additional Instructions: restrict daily fluid intake to 1.5 liters. Prescriptions: New sodium chloride 1,000 mg Tablet,Soluble 2,000 mg PO TID 3 Days Qty: 18 0RF Continued (DME) blood sugar diagnostic, drum [Accu-Chek Compact Test] strip See Dose Instructions .ROUTE .MEDSUPPLY Qty: 102 3RF Dose Instruction: As directed Rx Instructions: Check blood sugars once daily, Dx: E11.9 magnesium oxide 400 mg tablet 400 mg PO BID Qty: 180 3RF (DME) lancets [OneTouch Delica Lancets] 33 gauge misc See Dose Instructions .ROUTE .MEDSUPPLY Qty: 100 3RF Dose Instruction: As directed Rx Instructions: Test once daily apremilast 30 mg tablet 30 mg PO BID Qty: 180 4RF pravastatin 20 mg tablet 20 mg PO QHS Qty: 90 3RF levothyroxine 50 mcg tablet 50 mcg PO QDAY Qty: 90 3RF metformin 850 mg tablet 850 mg PO QDAY Qty: 90 3RF midodrine 10 mg tablet 10 mg PO TID Qty: 90 2RF Rx Instructions: do not give last dose of day after 6PM or within 4 hrs of bedtime furosemide 80 mg tablet 80 mg PO QAM Qty: 90 1RF Rx Instructions: Take 1 tab po q am. (DME) OneTouch Verio test strips Strip See Dose Instructions .ROUTE .MEDSUPPLY Qty: 100 3RF Dose Instruction: As directed Rx Instructions: Test once daily vitamin B complex tablet 1 tab PO QDAY ferrous sulfate 325 mg (65 mg iron) tablet 325 mg PO QDAY ascorbic acid (vitamin C) 500 mg tablet 500 mg PO QDAY albuterol sulfate 90 mcg/actuation HFA aerosol inhaler 2 puff INHALATION Q4H PRN (Reason: asthma) Qty: 8.5 1RF hydrocodone-acetaminophen 5-325 mg tablet 1 tab PO BID PRN (Reason: migraine headache) Qty: 14 0RF Patient Comments: for migraines ondansetron 4 mg tablet,disintegrating 4 mg PO Q6H PRN (Reason: nausea and vomiting) Qty: 20 0RF spironolactone 100 mg Tablet 200 mg PO QAM propranolol 20 mg tablet 10 mg PO BID Qty: 30 0RF Prescription drug monitoring program results: PDMP not reviewed Follow Up Plan Follow up with: Frandy Self DO [Primary Care Provider] - Patient Disposition: Home, Self-Care Plan of Treatment: Patient to follow up with [facility]/Hepatology as previously instructed. Overall status at discharge: patient is back to baseline Discharge Orders: Discharge Order (Routine); Ordered 06/26/22 Ordered By: Jovany DUARTE VTE Deep Vein Thrombosis/Pulmonary Embolism Present on Admission: No
== END 2022-06-26 15:30 | disposition home or self-care (01) | DRG 641 ==
LOC: ED 10:30 → MEDSUR 14:53
PROVIDERS: ADMIT Internal Medicine; ATTEND Internal Medicine